=== PATIENT | female | born 1945 | race Hispanic/Latino ===

== ENCOUNTER 2017-06-07 16:52 | Emergency (ER) | payer MEDICARE, OTHER ==
[2017-06-07] MEDS ORDERED: NEURONTIN PO ONE (17:30)
--- NOTE | 2017-06-07 17:31 | Emergency Department Report ---
HPI - General Chief Complaint: Extremity Injury, Upper Time Seen by Provider: 06/07/17 17:29 - HPI HPI: Patient with history of CVA, given the ED with severe left upper extremity pain , no weakness no nausea no vomiting. Patient states symptoms as gone on for the past couple of weeks but worse today. Patient has seen her neurologist for these symptoms, was given lyrica but was unable to afford the medication. ED Past Medical Hx - Past Medical History Previous Medical History?: Yes Hx Hypertension: Yes (pulmonary) Hx CVA: Yes Hx Congestive Heart Failure: Yes Hx Diabetes: Yes Hx Kidney Stones: Yes Additional medical history: A-fib, sleep apnea, CAD, hyperlipidemia - Surgical History Past Surgical History?: Yes Hx Coronary Stent: Yes (x 4) Hx Cholecystectomy: Yes Hx Appendectomy: Yes Additional Surgical History: heart stent x 4; knee and ankle; hernia repair x 2 - Social History Smoking Status: Unknown if ever smoked Substance Use Type: None - Medications Home Medications: Home Medications Medication Instructions Recorded Confirmed Last Taken Type Dabigatran [Pradaxa] 150 mg PO BID 01/31/14 09/15/16 1 Day Ago History 150 Diltiazem Cd [Cardizem CD] 240 mg PO QDAY 01/31/14 09/15/16 1 Day Ago History 240 Valsartan [Diovan] 320 mg PO QDAY 01/31/14 09/15/16 1 Day Ago History 320 Cetirizine HCl [ZyrTEC] 10 mg PO DAILY 11/11/14 09/15/16 1 Day Ago History 10 Tadalafil (Nf) [Adcirca (Nf)] 40 mg PO QDAY 11/11/14 09/15/16 1 Day Ago History 40 Furosemide [Lasix TAB] 40 mg PO QDAY 06/10/16 09/15/16 1 Day Ago History 40 Sitagliptin Phos/Metformin HCl 1 tab PO BID 06/10/16 09/15/16 1 Day Ago History [Janumet 50-1,000 mg] 1 Acetaminophen [Acetaminophen TAB] 650 mg PO Q4H PRN #30 tablet 06/14/16 Unknown Rx Ipratropium/Albuterol Sulfate 1 ampul IH BIDRT #30 ampul.neb 06/14/16 09/15/16 Unknown Rx [DUONEB *Not for PRN Use*] Zolpidem [Ambien] 10 mg PO QHS #30 tablet 06/14/16 09/15/16 Unknown Rx levETIRAcetam [Keppra TAB] 500 mg PO BID #60 tablet 06/14/16 09/15/16 Unknown Rx clonazePAM [KlonoPIN] 0.5 mg PO DAILY 09/15/16 09/15/16 Unknown History Gabapentin [Neurontin] 300 mg PO BID capsule 09/17/16 Unknown Rx Lacosamide [Vimpat] 100 mg PO Q12HR tablet 09/17/16 Unknown Rx Carvedilol [Coreg] 3.125 mg PO BID #60 tablet 09/18/16 Unknown Rx levETIRAcetam [Keppra TAB] 500 mg PO BID #60 tablet 01/15/17 Unknown Rx traMADol [Ultram] 50 mg PO Q6HR PRN #7 tablet 06/08/17 Unknown Rx ED Review of Systems ROS: Stated complaint: LEFT LEG AND ARM PAIN Other details as noted in HPI Comment: All other systems reviewed and negative Neurological: as per HPI Psychiatric: anxiety Physical Exam - Physical Exam Vital Signs: Vital Signs 06/07/17 16:58 Temperature 98.8 F Pulse Rate 85 Respiratory 24 Rate Blood Pressure 205/84 O2 Sat by Pulse 92 Oximetry Physical Exam: General Adult Exam GENERAL APPEARANCE: Well developed, well nourished, alert and cooperative, and appears to be in no acute distress. HEAD: normocephalic. EYES: PERRL, EOMI. Fundi normal, vision is grossly intact. EARS: External auditory canals and tympanic membranes clear, hearing grossly intact. NOSE: No nasal discharge. THROAT: Oral cavity and pharynx normal. No inflammation, swelling, exudate, or lesions. Teeth and gingiva in good general condition. NECK: Neck supple, non-tender without lymphadenopathy, masses or thyromegaly. CARDIAC: Normal S1 and S2. No S3, S4 or murmurs. Rhythm is regular. There is no peripheral edema, cyanosis or pallor. Extremities are warm and well perfused. Capillary refill is less than 2 seconds. No carotid bruits. LUNGS: Clear to auscultation and percussion without rales, rhonchi, wheezing or diminished breath sounds. ABDOMEN: Positive bowel sounds. Soft, nondistended, nontender. No guarding or rebound. No masses. MUSKULOSKELETAL: Adequately aligned spine. ROM intact spine and extremities. No joint erythema or tenderness. Normal muscular development. Normal gait. BACK: Examination of the spine reveals normal gait and posture, no spinal deformity, symmetry of spinal muscles, without tenderness, decreased range of motion or muscular spasm. EXTREMITIES: No significant deformity or joint abnormality. No edema. Peripheral pulses intact. No varicosities. LOWER EXTREMITY: Examination of both feet reveals all toes to be normal in size and symmetry, normal range of motion, normal sensation with distal capillary filling of less than 2 seconds without tenderness, swelling, discoloration, nodules, weakness or deformity; examination of both ankles, knees, legs, and hips reveals normal range of motion, normal sensation without tenderness, swelling, discoloration, crepitus, weakness or deformity. NEUROLOGICAL: CN II-XII intact. Strength and sensation symmetric and intact throughout. Reflexes 2+ throughout. Cerebellar testing normal. SKIN: Skin normal color, texture and turgor with no lesions or eruptions. PSYCHIATRIC: The mental examination revealed the patient was oriented to person , place, and time. The patient was able to demonstrate good judgement and reason , without hallucinations, abnormal affect or abnormal behaviors during the examination. Patient is not suicidal. ED Course Vital Signs 06/07/17 16:58 Temperature 98.8 F Pulse Rate 85 Respiratory 24 Rate Blood Pressure 205/84 O2 Sat by Pulse 92 Oximetry ED Medical Decision Making - Lab Data Result diagrams: 06/07/17 20:27 06/07/17 20:27 Critical care attestation.: If time is entered above; I have spent that time in minutes in the direct care of this critically ill patient, excluding procedure time. ED Disposition Clinical Impression: Neuropathy Disposition: DC-01 TO HOME OR SELFCARE Is pt being admited?: No Does the pt Need Aspirin: No Condition: Stable Prescriptions: traMADol [Ultram] 50 mg PO Q6HR PRN #7 tablet PRN Reason: Pain Referrals: PRIMARY CARE, [Primary Care Provider] - 3-5 Days
--- NOTE | 2017-06-07 18:31 | Cat Scan Report ---
FINAL REPORT PROCEDURE: CT HEAD/BRAIN WO CON TECHNIQUE: Computerized tomography of the head was performed without contrast material. HISTORY: left arm weakness COMPARISON: Head CT dated January 15, 2017 FINDINGS: Calcifications are seen in the distal ICAs, vertebral arteries, and basilar artery. Mild changes of chronic sinusitis are seen in the paranasal sinuses. Mastoid air cells appear clear. No calvarial fracture is seen. Cerebral ventricles are normal in size. Encephalomalacia from prior CVA is seen in the posterior right frontal lobe. Associated gliosis is seen, similar prior study. This is very near the motor cortex and could account for patient's symptoms. No acute intracranial hemorrhage or mass effect is seen. IMPRESSION: Old right frontal lobe CVA appears similar to prior study. An acute abnormality is not seen.
[2017-06-07] MEDS ORDERED: TORADOL IV ONE (20:20)
[2017-06-07 20:48] LABS: Basophils % (Auto) 0.7 % (0.0-1.8); Eosinophils % (Auto) 1.3 % (0.0-4.3); Hematocrit 32.2 % (30.3-42.9); Hemoglobin 10.3 gm/dl (10.1-14.3); Mean Corpuscular HGB Conc 32 % (30-34); Mean Corpuscular Volume 81 fl (79-97); Platelet Count 137 K/mm3 (140-440); Red Blood Count 3.99 M/mm3 (3.65-5.03); White Blood Count 5.5 K/mm3 (4.5-11.0)
[2017-06-07 20:50] LABS: Mean Corpuscular Hemoglobin 26 pg (28-32)
[2017-06-07 21:12] LABS: Alanine Aminotransferase 8 units/L (7-56); Albumin 3.9 g/dL (3.9-5); Albumin/Globulin Ratio 0.9 %; Alkaline Phosphatase 54 units/L (35-129); Anion Gap 23 mmol/L; BUN/Creatinine Ratio 23.33; Blood Urea Nitrogen 14 mg/dL (7-17); Calcium 9.5 mg/dL (8.4-10.2); Carbon Dioxide 18 mmol/L (22-30); Chloride 102.7 mmol/L (98-107); Glucose 110 mg/dL (65-100); Potassium 4.2 mmol/L (3.6-5.0); Sodium 139 mmol/L (137-145); Total Protein 8.2 g/dL (6.3-8.2)
[2017-06-08 03:33] VITALS: BP 126/69
== END 2017-06-07 23:00 | disposition home or self-care (01) ==
LOC: ED 16:52
DX: M79.642 Pain in left hand (principal); E11.40 Type 2 diabetes mellitus with diabetic neuropathy, unspecified; I27.2 Other secondary pulmonary hypertension; Z86.73 Personal history of transient ischemic attack (TIA), and cerebral infarction without residual deficits; G47.30 Sleep apnea, unspecified; E78.5 Hyperlipidemia, unspecified; Z95.818 Presence of other cardiac implants and grafts; Z88.0 Allergy status to penicillin; Z88.5 Allergy status to narcotic agent
CPT/HCPCS: 36415; 70450; 80053; 85025; 93005; 93010; 96374; 99284; J1885

== ENCOUNTER 2018-01-13 16:02 | Inpatient (IN) | payer OTHER, MEDICARE ==
--- NOTE | 2018-01-13 17:41 | Emergency Department Report ---
HPI - General Chief Complaint: Dyspnea/Respdistress Time Seen by Provider: 01/13/18 17:33 - HPI HPI: 72-year-old female presents to ED with chest pain, shortness of breath , history of atrial fibrillation. No fever, no chills. Pain is dull, radiation to both shoulders. Patient states she is compliant with her medications. She lives at home. He was admitted in the hospital in [place] less week for fluid overload. She does have a history of CHF. ED Past Medical Hx - Past Medical History Hx Hypertension: Yes (pulmonary) Hx CVA: Yes Hx Congestive Heart Failure: Yes Hx Diabetes: Yes Hx Kidney Stones: Yes Additional medical history: A-fib, sleep apnea, CAD, hyperlipidemia - Surgical History Hx Coronary Stent: Yes (x 4) Hx Cholecystectomy: Yes Hx Appendectomy: Yes Additional Surgical History: heart stent x 4; knee and ankle; hernia repair x 2 - Social History Smoking Status: Never Smoker Substance Use Type: None - Medications Home Medications: Home Medications Medication Instructions Recorded Confirmed Last Taken Type Dabigatran [Pradaxa] 150 mg PO BID 01/31/14 09/15/16 1 Day Ago History ~06/09/16 150 Diltiazem Cd [Cardizem CD] 240 mg PO QDAY 01/31/14 09/15/16 1 Day Ago History ~06/09/16 240 Valsartan [Diovan] 320 mg PO QDAY 01/31/14 09/15/16 1 Day Ago History ~06/09/16 320 Cetirizine HCl [ZyrTEC] 10 mg PO DAILY 11/11/14 09/15/16 1 Day Ago History ~06/09/16 10 Tadalafil (Nf) [Adcirca (Nf)] 40 mg PO QDAY 11/11/14 09/15/16 1 Day Ago History ~06/09/16 40 Furosemide [Lasix TAB] 40 mg PO QDAY 06/10/16 09/15/16 1 Day Ago History ~06/09/16 40 Sitagliptin Phos/Metformin HCl 1 tab PO BID 06/10/16 09/15/16 1 Day Ago History [Janumet 50-1,000 mg] ~06/09/16 1 Acetaminophen [Acetaminophen TAB] 650 mg PO Q4H PRN #30 tablet 06/14/16 Unknown Rx Ipratropium/Albuterol Sulfate 1 ampul IH BIDRT #30 ampul.neb 06/14/16 09/15/16 Unknown Rx [DUONEB *Not for PRN Use*] Zolpidem [Ambien] 10 mg PO QHS #30 tablet 06/14/16 09/15/16 Unknown Rx levETIRAcetam [Keppra TAB] 500 mg PO BID #60 tablet 06/14/16 09/15/16 Unknown Rx clonazePAM [KlonoPIN] 0.5 mg PO DAILY 09/15/16 09/15/16 Unknown History Gabapentin [Neurontin] 300 mg PO BID capsule 09/17/16 Unknown Rx Lacosamide [Vimpat] 100 mg PO Q12HR tablet 09/17/16 Unknown Rx Carvedilol [Coreg] 3.125 mg PO BID #60 tablet 09/18/16 Unknown Rx levETIRAcetam [Keppra TAB] 500 mg PO BID #60 tablet 01/15/17 Unknown Rx traMADol [Ultram] 50 mg PO Q6HR PRN #7 tablet 06/08/17 Unknown Rx ED Review of Systems ROS: Stated complaint: SHORTNESS OF BREATH Other details as noted in HPI Physical Exam - Physical Exam Vital Signs: Vital Signs 01/13/18 01/13/18 01/13/18 16:38 16:50 17:24 Temperature 98.0 F 98.0 F Pulse Rate 66 56 L 68 Respiratory 24 24 Rate Blood Pressure 149/54 Blood Pressure 150/51 [Right] O2 Sat by Pulse 95 95 Oximetry Physical Exam: Gen. alert and oriented 3 in no distress Head atraumatic normocephalic Eyes PERR LA EOMI Neck vascular, prominent JVD bilaterally Chest irregularly irregular lungs clear bilaterally, Extremity: One plus edema bilaterally Abdomen soft nondistended Back no point tenderness Neuro no focal deficit. Psych normal mood. ED Course Vital Signs 01/13/18 01/13/18 01/13/18 16:38 16:50 17:24 Temperature 98.0 F 98.0 F Pulse Rate 66 56 L 68 Respiratory 24 24 Rate Blood Pressure 149/54 Blood Pressure 150/51 [Right] O2 Sat by Pulse 95 95 Oximetry - Reevaluation(s) Reevaluation #1: 01/14/18 01:04 Patient requiring full liters of oxygen to keep saturation greater than 93%. States she is unable to lay flat due to her symptoms we will admit. ED Medical Decision Making - Lab Data Result diagrams: 01/13/18 18:04 01/13/18 18:04 - Medical Decision Making Patient requiring full liters of oxygen to keep saturation greater than 93%. States she is unable to lay flat due to her symptoms we will admit. - Differential Diagnosis pneumonia, [place], acute CHF exacerbation, atrial fibrillation with RVR Critical care attestation.: If time is entered above; I have spent that time in minutes in the direct care of this critically ill patient, excluding procedure time. ED Disposition Clinical Impression: Chronic atrial fibrillation, Pulmonary hypertension CHF (congestive heart failure) Qualifiers: Heart failure type: systolic Heart failure chronicity: acute on chronic Qualified Code(s): I50.23 - Acute on chronic systolic (congestive) heart failure Disposition: OP ADMIT IP TO THIS HOSP Is pt being admited?: Yes Does the pt Need Aspirin: Yes Condition: Stable Referrals: PRIMARY CARE, [Primary Care Provider] - 3-5 Days
[2018-01-13 18:21] LABS: Basophils # (Auto) 0.1 K/mm3 (0.0-0.1); Basophils % (Auto) 0.8 % (0.0-1.8); Eosinophils # (Auto) 0.1 K/mm3 (0.0-0.4); Eosinophils % (Auto) 0.9 % (0.0-4.3); Hematocrit 31.3 % (30.3-42.9); Hemoglobin 9.9 gm/dl (10.1-14.3); Lymphocytes # (Auto) 1.3 K/mm3 (1.2-5.4); Lymphocytes % (Auto) 19.3 % (13.4-35.0); Mean Corpuscular HGB Conc 32 % (30-34); Mean Corpuscular Volume 80 fl (79-97); Monocytes # (Auto) 0.5 K/mm3 (0.0-0.8); Monocytes % (Auto) 6.9 % (0.0-7.3); Platelet Count 186 K/mm3 (140-440); Red Blood Count 3.91 M/mm3 (3.65-5.03); Red Cell Distribution Width 15.4 % (13.2-15.2)
[2018-01-13 18:25] LABS: Mean Corpuscular Hemoglobin 25 pg (28-32)
[2018-01-13 18:28] LABS: INR 1.38 (0.87-1.13)
[2018-01-13 18:30] LABS: Partial Thromboplastin Time 57.1 Sec. (24.2-36.6)
[2018-01-13 18:46] LABS: Calcium 9.1 mg/dL (8.4-10.2)
--- NOTE | 2018-01-13 19:12 | XRay Report ---
FINAL REPORT PROCEDURE: PA and lateral chest x-ray TECHNIQUE: PA and lateral chest radiographs were obtained. CPT 21007 HISTORY: Shortness of breath COMPARISON: Prior chest x-ray 09/14/2016 FINDINGS: Cardiomegaly is unchanged. Upper lobe vasculature mildly distended. The margins are sharp. No definite pulmonary edema is seen. No acute infiltrates masses or effusions are identified. No acute bony abnormalities are identified. Overall the lungs appear mildly hyperinflated. IMPRESSION: Cardiomegaly with mild pulmonary venous hypertension changes. No pulmonary edema is seen. Mild hyperinflation suggests underlying COPD..
[2018-01-13] MEDS ORDERED: LASIX IV ONE (23:28)
[2018-01-14] MEDS ORDERED: ASPIRIN PO ONE (01:06)
[2018-01-14] MEDS ORDERED: TYLENOL PO PRN (02:02)
[2018-01-14] MEDS ORDERED: D50W (25GM) Syringe IV PRN (02:19)
--- NOTE | 2018-01-14 02:19 | History and Physical Report ---
History of Present Illness Date of examination: 01/14/18 Date of admission: 01/14/18 00:29 Chief complaint: Sent from cardiology clinic for shortness of breath. History of present illness: 72-year-old female with past medical history significant for diastolic CHF, pulmonary hypertension, sleep apnea, diabetes mellitus, hypertension, CAD status post post 4 stents, A. fib was sent from Dr. Callejas's clinic to the emergency department further complaints of exertional shortness of breath for the last 2 weeks. Shortness of breath is progressively getting worse. Patient had echo and stress test done recently at cardiology clinic and went today to discuss the results but patient with respiratory distress and sent to the emergency department for further management. Patient needs 4 L of oxygen. Patient was admitted to [facility] on 12/26/17 and was treated for CHF exacerbation and discharged. Patient admitted for occasional cough but denied leg swelling. Patient had severe pulmonary hypertension and is on tadalafil. Patient has MARY ELLEN and on CPAP. REVIEW OF SYSTEMS: GENERAL: no weight change, no fatigue, no fever HEAD: no head ache EYES: no blurry vision, no acute visual loss EARS: no hearing loss, no discharge, no earache NOSE: no stuffiness, no sneezing, no discharge MOUTH, THROAT AND NECK: no bleeding gums, no sore throat, no swollen neck CARDIAC: As stated in the HPI. RESPIRATORY: As stated in the HPI. GI: no decreased appetite, no nausea, no vomiting, no dysphagia, no diarrhea, no constipation, no abdominal pain URINARY: no change in frequency, no urgency, no polyuria, no hematuria, no incontinence MUSCULOSKELETAL: no muscle weakness, no pain, no joint stiffness NEUROLOGIC: no loss of sensation/numbness, no tingling, no tremors, no weakness/ paralysis HEMATOLOGIC: no anemia, no easy bruising SKIN: no rashes ENDOCRINE: no heat/cold intolerance, no polyuria, no polydipsia, no thyroid problems PSYCHIATRIC: no anxiety, no depression, no suicidal ideations Past History Past Medical History: atrial fib, CAD, diabetes, heart failure, hypertension Past Surgical History: appendectomy, cholecystectomy, hysterectomy Social history: full code. denies: smoking, alcohol abuse, prescription drug abuse, IV drug use Family history: CAD Medications and Allergies Allergies Allergy/AdvReac Type Severity Reaction Status Date / Time Penicillins Allergy Severe Swelling Verified 11/11/14 17:37 codeine AdvReac Nausea Verified 11/11/14 17:37 hydrocodone AdvReac Nausea Verified 11/11/14 17:37 Home Medications Medication Instructions Recorded Confirmed Last Taken Type Dabigatran [Pradaxa] 150 mg PO BID 01/31/14 09/15/16 1 Day Ago History ~06/09/16 150 Diltiazem Cd [Cardizem CD] 240 mg PO QDAY 01/31/14 09/15/16 1 Day Ago History ~06/09/16 240 Valsartan [Diovan] 320 mg PO QDAY 01/31/14 09/15/16 1 Day Ago History ~06/09/16 320 Cetirizine HCl [ZyrTEC] 10 mg PO DAILY 11/11/14 09/15/16 1 Day Ago History ~06/09/16 10 Tadalafil (Nf) [Adcirca (Nf)] 40 mg PO QDAY 11/11/14 09/15/16 1 Day Ago History ~06/09/16 40 Furosemide [Lasix TAB] 40 mg PO QDAY 06/10/16 09/15/16 1 Day Ago History ~06/09/16 40 Sitagliptin Phos/Metformin HCl 1 tab PO BID 06/10/16 09/15/16 1 Day Ago History [Janumet 50-1,000 mg] ~06/09/16 1 Acetaminophen [Acetaminophen TAB] 650 mg PO Q4H PRN #30 tablet 06/14/16 Unknown Rx Ipratropium/Albuterol Sulfate 1 ampul IH BIDRT #30 ampul.neb 06/14/16 09/15/16 Unknown Rx [DUONEB *Not for PRN Use*] Zolpidem [Ambien] 10 mg PO QHS #30 tablet 06/14/16 09/15/16 Unknown Rx levETIRAcetam [Keppra TAB] 500 mg PO BID #60 tablet 06/14/16 09/15/16 Unknown Rx clonazePAM [KlonoPIN] 0.5 mg PO DAILY 09/15/16 09/15/16 Unknown History Gabapentin [Neurontin] 300 mg PO BID capsule 09/17/16 Unknown Rx Lacosamide [Vimpat] 100 mg PO Q12HR tablet 09/17/16 Unknown Rx Carvedilol [Coreg] 3.125 mg PO BID #60 tablet 09/18/16 Unknown Rx levETIRAcetam [Keppra TAB] 500 mg PO BID #60 tablet 01/15/17 Unknown Rx traMADol [Ultram] 50 mg PO Q6HR PRN #7 tablet 06/08/17 Unknown Rx Active Meds: Active Medications Acetaminophen (Tylenol) 650 mg PO Q4H PRN PRN Reason: For Pain/Fever/Headache Albuterol/Ipratropium (Duoneb *Not For Prn Use*) 1 ampul IH BIDRT ANGIE Aspirin (Baby Aspirin) 81 mg PO QDAY ANGIE Carvedilol (Coreg) 3.125 mg PO BID ANGIE Clonazepam (Klonopin) 0.5 mg PO DAILY ANGIE Dabigatran (Pradaxa) 150 mg PO BID ANGIE; Protocol Diltiazem HCl (Cardizem Cd) 240 mg PO QDAY [facility] Furosemide (Lasix) 40 mg IV BID@0600,1800 [facility] Gabapentin (Neurontin) 300 mg PO BID [facility] Miscellaneous Medication (Cetirizine Hcl [Zyrtec]) 10 mg PO DAILY [facility] Miscellaneous Medication (Tadalafil (Nf)) 40 mg PO QDAY ANGIE Valsartan (Diovan) 320 mg PO QDAY ANGIE Zolpidem Tartrate (Ambien) 10 mg PO QHS [facility] Exam - Physical Exam Narrative exam: In cardiopulmonary distress. On 4l of [place] oxygen. The patient is obese. Vital signs as documented. Head exam is unremarkable. No scleral icterus . Neck is without jugular venous distension, thyromegaly, or carotid bruits. Lungs are clear to auscultation. Cardiac exam reveals irregular rate and Rhythm. Abdominal exam reveals normal bowel sounds, no masses, no organomegaly and no aortic enlargement. Extremities are nonedematous and both femoral and pedal pulses are normal. CROSSING WATCHMAN: Alert and oriented 3. No focal weakness. - Constitutional Vitals: Temp Pulse Resp BP Pulse Ox 98.0 F 61 20 154/63 94 01/13/18 17:24 01/13/18 21:21 01/13/18 21:21 01/14/18 00:27 01/14/18 00:27 Results - Labs CBC & Chem 7: 01/13/18 18:04 01/13/18 18:04 Labs: Laboratory Last Values WBC 6.8 K/mm3 (4.5-11.0) 01/13/18 18:04 RBC 3.91 M/mm3 (3.65-5.03) 01/13/18 18:04 Hgb 9.9 gm/dl (10.1-14.3) L 01/13/18 18:04 Hct 31.3 % (30.3-42.9) 01/13/18 18:04 MCV 80 fl (79-97) 01/13/18 18:04 MCH 25 pg (28-32) L 01/13/18 18:04 MCHC 32 % (30-34) 01/13/18 18:04 RDW 15.4 % (13.2-15.2) H 01/13/18 18:04 Plt Count 186 K/mm3 (140-440) 01/13/18 18:04 Lymph % (Auto) 19.3 % (13.4-35.0) 01/13/18 18:04 [place] % (Auto) 6.9 % (0.0-7.3) 01/13/18 18:04 Eos % (Auto) 0.9 % (0.0-4.3) 01/13/18 18:04 Baso % (Auto) 0.8 % (0.0-1.8) 01/13/18 18:04 Lymph # 1.3 K/mm3 (1.2-5.4) 01/13/18 18:04 [place] # 0.5 K/mm3 (0.0-0.8) 01/13/18 18:04 Eos # 0.1 K/mm3 (0.0-0.4) 01/13/18 18:04 Baso # 0.1 K/mm3 (0.0-0.1) 01/13/18 18:04 Seg Neutrophils % 72.1 % (40.0-70.0) H 01/13/18 18:04 Seg Neutrophils # 4.9 K/mm3 (1.8-7.7) 01/13/18 18:04 PT 17.8 Sec. (12.2-14.9) H 01/13/18 18:04 INR 1.38 (0.87-1.13) H 01/13/18 18:04 APTT 57.1 Sec. (24.2-36.6) H 01/13/18 18:04 Sodium 139 mmol/L (137-145) 01/13/18 18:04 Potassium 3.9 mmol/L (3.6-5.0) 01/13/18 18:04 Chloride 100.4 mmol/L (98-107) 01/13/18 18:04 Carbon Dioxide 21 mmol/L (22-30) L 01/13/18 18:04 Anion Gap 22 mmol/L 01/13/18 18:04 BUN 16 mg/dL (7-17) 01/13/18 18:04 Creatinine 1.0 mg/dL (0.7-1.2) 01/13/18 18:04 Estimated GFR 54 ml/min 01/13/18 18:04 BUN/Creatinine Ratio 16 % 01/13/18 18:04 Glucose 112 mg/dL (65-100) H 01/13/18 18:04 Calcium 9.1 mg/dL (8.4-10.2) 01/13/18 18:04 Total Creatine Kinase 43 units/L (30-135) 01/13/18 18:04 Troponin T < 0.010 ng/mL (0.00-0.029) 01/13/18 18:04 NT-Pro-B Natriuret Pep 1537 pg/mL (0-900) H 01/13/18 23:41 - Imaging and Cardiology EKG: image reviewed Chest x-ray: image reviewed Assessment and Plan Assessment and plan: Acute on chronic diastolic CHF exacerbation Pulmonary hypertension A. fib, rate controlled Diabetes mellitus Hypertension CAD - Patient started on IV Lasix, resume appropriate home medications, cardiology consulted - Oxygen support DVT prophylaxis - patient is on pradaxa Disposition - Admit to telemetry floor. Advance Directives: Yes VTE prophylaxis?: Chemical Plan of care discussed with patient/family: Yes
[2018-01-14] MEDS: LASIX IV SCH ×2 (05:49→17:24)
[2018-01-14] MEDS: DUONEB *Not for PRN Use IH SCH ×2 (07:30→20:36)
[2018-01-14] MEDS: HumaLOG SUB-Q SCH ×4 (07:49→22:32)
[2018-01-14] MEDS: CARDIZEM CD PO SCH (09:57)
[2018-01-14] MEDS: CLARITIN PO SCH (09:57)
[2018-01-14] MEDS: BABY ASPIRIN PO SCH (09:57)
[2018-01-14] MEDS: PRADAXA PO SCH ×2 (09:57→22:31)
[2018-01-14] MEDS: COREG PO SCH (09:57)
[2018-01-14] MEDS: DIOVAN PO SCH (09:57)
[2018-01-14] MEDS: NEURONTIN PO SCH ×2 (09:57→22:31)
[2018-01-14] MEDS ORDERED: NON-FORMULARY (Tadalafil (Nf) 40 MG) PO SCH (10:00)
[2018-01-14] MEDS ORDERED: NON-FORMULARY (Cetirizine Hcl [Zyrtec] 10 MG) PO SCH (10:00)
--- NOTE | 2018-01-14 11:13 | Progress Note ---
Assessment and Plan Assessment and plan: Acute on chronic diastolic CHF exacerbation. BNP is elevated at 1537 on admission. Continue IV Lasix, resume appropriate home medications, cardiology consultion pending. Echocardiogram on 04/2016 revealed mild concentric LVH with EF of 50-55%. Repeat echocardiogram. Pulmonary hypertension. Continue O2 for supportive care. Echo from 2016 revealed RVSP of 71 mmHg A. fib, rate controlled. Continue current medications. Continue pradaxa Diabetes mellitus. Continue Accu-Cheks and sliding scale insulin. Hypertension. Continue antihypertensive medications. CAD. Per cardiology. DVT prophylaxis. Patient is on pradaxa History Interval history: No new issues overnight. Hospitalist Physical - Constitutional Vitals: Temp Pulse Resp BP Pulse Ox 97.4 F L 72 20 171/76 96 01/14/18 08:16 01/14/18 08:16 01/14/18 10:00 01/14/18 08:16 01/14/18 10:00 General appearance: Present: no acute distress, well-nourished - EENT Eyes: Present: PERRL, EOM intact ENT: hearing intact, clear oral mucosa, dentition normal - Neck Neck: Present: supple, normal ROM - Respiratory Respiratory effort: normal Respiratory: bilateral: CTA - Cardiovascular Rhythm: regular Heart Sounds: Present: S1 & S2. Absent: gallop, rub - Extremities Extremities: no ischemia, No edema, Full ROM - Abdominal General gastrointestinal: soft, non-tender, non-distended, normal bowel sounds - Integumentary Integumentary: Present: clear, warm, dry - Neurologic Neurologic: CNII-XII intact, moves all extremities Results - Labs CBC & Chem 7: 01/13/18 18:04 01/13/18 18:04 Labs: Laboratory Last Values WBC 6.8 K/mm3 (4.5-11.0) 01/13/18 18:04 RBC 3.91 M/mm3 (3.65-5.03) 01/13/18 18:04 Hgb 9.9 gm/dl (10.1-14.3) L 01/13/18 18:04 Hct 31.3 % (30.3-42.9) 01/13/18 18:04 MCV 80 fl (79-97) 01/13/18 18:04 MCH 25 pg (28-32) L 01/13/18 18:04 MCHC 32 % (30-34) 01/13/18 18:04 RDW 15.4 % (13.2-15.2) H 01/13/18 18:04 Plt Count 186 K/mm3 (140-440) 01/13/18 18:04 Lymph % (Auto) 19.3 % (13.4-35.0) 01/13/18 18:04 [place] % (Auto) 6.9 % (0.0-7.3) 01/13/18 18:04 Eos % (Auto) 0.9 % (0.0-4.3) 01/13/18 18:04 Baso % (Auto) 0.8 % (0.0-1.8) 01/13/18 18:04 Lymph # 1.3 K/mm3 (1.2-5.4) 01/13/18 18:04 [place] # 0.5 K/mm3 (0.0-0.8) 01/13/18 18:04 Eos # 0.1 K/mm3 (0.0-0.4) 01/13/18 18:04 Baso # 0.1 K/mm3 (0.0-0.1) 01/13/18 18:04 Seg Neutrophils % 72.1 % (40.0-70.0) H 01/13/18 18:04 Seg Neutrophils # 4.9 K/mm3 (1.8-7.7) 01/13/18 18:04 PT 17.8 Sec. (12.2-14.9) H 01/13/18 18:04 INR 1.38 (0.87-1.13) H 01/13/18 18:04 APTT 57.1 Sec. (24.2-36.6) H 01/13/18 18:04 Sodium 139 mmol/L (137-145) 01/13/18 18:04 Potassium 3.9 mmol/L (3.6-5.0) 01/13/18 18:04 Chloride 100.4 mmol/L (98-107) 01/13/18 18:04 Carbon Dioxide 21 mmol/L (22-30) L 01/13/18 18:04 Anion Gap 22 mmol/L 01/13/18 18:04 BUN 16 mg/dL (7-17) 01/13/18 18:04 Creatinine 1.0 mg/dL (0.7-1.2) 01/13/18 18:04 Estimated GFR 54 ml/min 01/13/18 18:04 BUN/Creatinine Ratio 16 % 01/13/18 18:04 Glucose 112 mg/dL (65-100) H 01/13/18 18:04 POC Glucose 104 (70-105) 01/14/18 06:58 Calcium 9.1 mg/dL (8.4-10.2) 01/13/18 18:04 Total Creatine Kinase 43 units/L (30-135) 01/13/18 18:04 Troponin T < 0.010 ng/mL (0.00-0.029) 01/13/18 18:04 NT-Pro-B Natriuret Pep 1537 pg/mL (0-900) H 01/13/18 23:41
[2018-01-14] MEDS ORDERED: HumaLOG SUB-Q ONE (22:00)
[2018-01-14] MEDS: AMBIEN PO SCH (22:35)
[2018-01-15] MEDS: COREG PO SCH ×3 (00:08→21:57)
[2018-01-15] MEDS: LASIX IV SCH ×2 (06:05→17:03)
[2018-01-15 06:18] LABS: Basophils % (Auto) 0.7 % (0.0-1.8); Eosinophils # (Auto) 0.2 K/mm3 (0.0-0.4); Eosinophils % (Auto) 2.8 % (0.0-4.3); Hematocrit 32.2 % (30.3-42.9); Hemoglobin 10.6 gm/dl (10.1-14.3); Lymphocytes # (Auto) 1.5 K/mm3 (1.2-5.4); Lymphocytes % (Auto) 22.5 % (13.4-35.0); Mean Corpuscular HGB Conc 33 % (30-34); Mean Corpuscular Volume 79 fl (79-97); Monocytes # (Auto) 0.5 K/mm3 (0.0-0.8); Monocytes % (Auto) 8.1 % (0.0-7.3); Platelet Count 189 K/mm3 (140-440); Red Cell Distribution Width 15.5 % (13.2-15.2)
[2018-01-15 06:19] LABS: Mean Corpuscular Hemoglobin 26 pg (28-32)
[2018-01-15 06:38] LABS: Calcium 8.9 mg/dL (8.4-10.2)
[2018-01-15] MEDS: HumaLOG SUB-Q SCH ×4 (07:23→21:58)
[2018-01-15] MEDS: DUONEB *Not for PRN Use IH SCH ×2 (07:36→21:18)
[2018-01-15] MEDS: NEURONTIN PO SCH ×2 (09:59→21:57)
[2018-01-15] MEDS: DIOVAN PO SCH (09:59)
[2018-01-15] MEDS: BABY ASPIRIN PO SCH (09:59)
[2018-01-15] MEDS: PRADAXA PO SCH ×3 (09:59→22:01)
[2018-01-15] MEDS: CLARITIN PO SCH (10:00)
[2018-01-15] MEDS: CARDIZEM CD PO SCH (10:00)
--- NOTE | 2018-01-15 11:33 | Progress Note ---
Assessment and Plan SOB with severe pulmonary hypertension,RVSP of 118 mm Hg on echo done 12/2017, known coronary artery disease,s/p PCI.Normal LVEF,moderate MR. On Tadalafil,but her pulmonary arterial hypertension is not responding well.Last RHC was performed many years ago. Considering patient is severely symptomatic,not able to carry out her usual activities,would reevaluate her with right and left heart catheterization,with intention of treating her pulmonary hypertension more aggressively.Discussed with j luisnet about cardiac cath and further rx at tertiary care center. patient says she has issues with bleeding in past,will hold xarelto today and plan for cath on Tuesday.Patient is agreeable. - Patient Problems (1) Chronic atrial fibrillation Current Visit: Yes Status: Chronic (2) Pulmonary hypertension Current Visit: Yes Status: Chronic (3) Dyspnea or other respiratory complaints Current Visit: No Status: Acute Subjective Date of service: 01/15/18 Interval history: Patient with severe pulmonary hypertention and SOB with minimal exertion. Objective Vital Signs Temp Pulse Pulse Pulse Resp Resp BP 01/15/18 10:00 70 70 01/15/18 08:02 98.1 F 68 18 122/70 01/15/18 07:46 64 20 01/15/18 07:36 72 20 01/15/18 05:23 98.1 F 66 22 132/67 01/15/18 00:08 60 131/73 01/15/18 00:01 62 20 131/73 01/14/18 22:00 20 01/14/18 21:12 53 L 16 01/14/18 20:46 98.3 F 54 L 20 104/48 01/14/18 20:45 62 16 01/14/18 20:37 56 L 16 01/14/18 19:07 51 L 01/14/18 18:39 97.7 F 63 20 01/14/18 12:16 97.8 F 61 20 165/70 BP Pulse Ox 01/15/18 10:00 01/15/18 08:02 90 01/15/18 07:46 01/15/18 07:36 01/15/18 05:23 91 01/15/18 00:08 01/15/18 00:01 96 01/14/18 22:00 96 01/14/18 21:12 96 01/14/18 20:46 96 01/14/18 20:45 01/14/18 20:37 01/14/18 19:07 01/14/18 18:39 107/52 94 01/14/18 12:16 96 - Physical Examination HEENT: Positive: PERRL Neck: Positive: neck supple Cardiac: Positive: Reg Rate and Rhythm, S4 Lungs: Positive: clear to auscultation Neuro: Positive: Grossly Intact Abdomen: Positive: Unremarkable Skin: Negative: Rash Extremities: Absent: edema - Labs and Meds CBC 01/15/18 Range/Units 05:21 WBC 6.5 (4.5-11.0) K/mm3 RBC 4.10 (3.65-5.03) M/mm3 Hgb 10.6 (10.1-14.3) gm/dl Hct 32.2 (30.3-42.9) % Plt Count 189 (140-440) K/mm3 Lymph # 1.5 (1.2-5.4) K/mm3 [place] # 0.5 (0.0-0.8) K/mm3 Eos # 0.2 (0.0-0.4) K/mm3 Baso # 0.0 (0.0-0.1) K/mm3 Comprehensive Metabolic Panel 01/15/18 Range/Units 05:21 Sodium 138 (137-145) mmol/L Potassium 3.7 (3.6-5.0) mmol/L Chloride 96.1 L (98-107) mmol/L Carbon Dioxide 25 (22-30) mmol/L BUN 26 H (7-17) mg/dL Creatinine 1.2 (0.7-1.2) mg/dL Glucose 95 (65-100) mg/dL Calcium 8.9 (8.4-10.2) mg/dL - Imaging and Cardiology EKG: image reviewed
--- NOTE | 2018-01-15 11:43 | Progress Note ---
Assessment and Plan Assessment and plan: Acute on chronic diastolic CHF exacerbation. BNP is elevated at 1537 on admission. Continue IV Lasix, resume appropriate home medications, cardiology consultion pending. Echocardiogram on 04/2016 revealed mild concentric LVH with EF of 50-55%. Repeat echocardiogram. Pulmonary hypertension. Continue O2 for supportive care. Echo from 2015 revealed RVSP of 71 mmHg but now worse RVSP of 118 mm Hg on echo done 12/2017. On Tadalafil but her pulmonary arterial hypertension is not responding well. Cardiology Discussed with patient about cardiac cath and further rx at tertiary care center. Patient says she has issues with bleeding in past. Therefore, we will hold xarelto today and plan for cath on Tuesday. fib, rate controlled. Continue current medications. Continue pradaxa Diabetes mellitus. Continue Accu-Cheks and sliding scale insulin. Hypertension. Continue antihypertensive medications. CAD. Per cardiology. DVT prophylaxis. Patient is on pradaxa History Interval history: No new issues overnight. Hospitalist Physical - Constitutional Vitals: Temp Pulse Resp BP Pulse Ox 98.1 F 72 20 122/70 90 01/15/18 08:02 01/15/18 10:00 01/15/18 10:00 01/15/18 08:02 01/15/18 08:02 General appearance: Present: no acute distress, well-nourished - EENT Eyes: Present: PERRL, EOM intact ENT: hearing intact, clear oral mucosa, dentition normal - Neck Neck: Present: supple, normal ROM - Respiratory Respiratory effort: normal Respiratory: bilateral: CTA - Cardiovascular Rhythm: regular Heart Sounds: Present: S1 & S2. Absent: gallop, rub - Extremities Extremities: no ischemia, No edema, Full ROM - Abdominal General gastrointestinal: soft, non-tender, non-distended, normal bowel sounds - Integumentary Integumentary: Present: clear, warm, dry - Neurologic Neurologic: CNII-XII intact, moves all extremities Results - Labs CBC & Chem 7: 01/15/18 05:21 01/15/18 05:21 Labs: Laboratory Last Values WBC 6.5 K/mm3 (4.5-11.0) 01/15/18 05:21 RBC 4.10 M/mm3 (3.65-5.03) 01/15/18 05:21 Hgb 10.6 gm/dl (10.1-14.3) 01/15/18 05:21 Hct 32.2 % (30.3-42.9) 01/15/18 05:21 MCV 79 fl (79-97) 01/15/18 05:21 MCH 26 pg (28-32) L 01/15/18 05:21 MCHC 33 % (30-34) 01/15/18 05:21 RDW 15.5 % (13.2-15.2) H 01/15/18 05:21 Plt Count 189 K/mm3 (140-440) 01/15/18 05:21 Lymph % (Auto) 22.5 % (13.4-35.0) 01/15/18 05:21 [place] % (Auto) 8.1 % (0.0-7.3) H 01/15/18 05:21 Eos % (Auto) 2.8 % (0.0-4.3) 01/15/18 05:21 Baso % (Auto) 0.7 % (0.0-1.8) 01/15/18 05:21 Lymph # 1.5 K/mm3 (1.2-5.4) 01/15/18 05:21 [place] # 0.5 K/mm3 (0.0-0.8) 01/15/18 05:21 Eos # 0.2 K/mm3 (0.0-0.4) 01/15/18 05:21 Baso # 0.0 K/mm3 (0.0-0.1) 01/15/18 05:21 Seg Neutrophils % 65.9 % (40.0-70.0) 01/15/18 05:21 Seg Neutrophils # 4.3 K/mm3 (1.8-7.7) 01/15/18 05:21 PT 17.8 Sec. (12.2-14.9) H 01/13/18 18:04 INR 1.38 (0.87-1.13) H 01/13/18 18:04 APTT 57.1 Sec. (24.2-36.6) H 01/13/18 18:04 Sodium 138 mmol/L (137-145) 01/15/18 05:21 Potassium 3.7 mmol/L (3.6-5.0) 01/15/18 05:21 Chloride 96.1 mmol/L (98-107) L 01/15/18 05:21 Carbon Dioxide 25 mmol/L (22-30) 01/15/18 05:21 Anion Gap 21 mmol/L 01/15/18 05:21 BUN 26 mg/dL (7-17) H 01/15/18 05:21 Creatinine 1.2 mg/dL (0.7-1.2) 01/15/18 05:21 Estimated GFR 44 ml/min 01/15/18 05:21 BUN/Creatinine Ratio 22 % 01/15/18 05:21 Glucose 95 mg/dL (65-100) 01/15/18 05:21 POC Glucose 110 (70-105) H 01/15/18 05:44 Calcium 8.9 mg/dL (8.4-10.2) 01/15/18 05:21 Total Creatine Kinase 43 units/L (30-135) 01/13/18 18:04 Troponin T < 0.010 ng/mL (0.00-0.029) 01/13/18 18:04 NT-Pro-B Natriuret Pep 1537 pg/mL (0-900) H 01/13/18 23:41
[2018-01-15] MEDS: AMBIEN PO SCH (21:57)
[2018-01-15] MEDS ORDERED: HumaLOG SUB-Q ONE (22:00)
[2018-01-16 05:53] LABS: Basophils % (Auto) 0.6 % (0.0-1.8); Eosinophils # (Auto) 0.2 K/mm3 (0.0-0.4); Eosinophils % (Auto) 2.3 % (0.0-4.3); Hematocrit 34.4 % (30.3-42.9); Hemoglobin 11.3 gm/dl (10.1-14.3); Lymphocytes # (Auto) 1.9 K/mm3 (1.2-5.4); Lymphocytes % (Auto) 25.8 % (13.4-35.0); Mean Corpuscular HGB Conc 33 % (30-34); Mean Corpuscular Hemoglobin 26 pg (28-32); Mean Corpuscular Volume 79 fl (79-97); Monocytes # (Auto) 0.6 K/mm3 (0.0-0.8); Monocytes % (Auto) 8.4 % (0.0-7.3); Platelet Count 201 K/mm3 (140-440); Red Blood Count 4.37 M/mm3 (3.65-5.03); Red Cell Distribution Width 15.8 % (13.2-15.2)
[2018-01-16] MEDS: LASIX IV SCH ×2 (05:55→18:02)
[2018-01-16 06:10] LABS: Calcium 9.1 mg/dL (8.4-10.2)
[2018-01-16] MEDS: DUONEB *Not for PRN Use IH SCH ×2 (07:45→21:21)
[2018-01-16] MEDS: HumaLOG SUB-Q SCH ×4 (08:07→23:12)
--- NOTE | 2018-01-16 09:09 | Progress Note ---
Assessment and Plan Assessment and plan: Acute on chronic diastolic CHF exacerbation. BNP is elevated at 1537 on admission. Continue IV Lasix, resume appropriate home medications, cardiology consultion pending. Echocardiogram on 04/2016 revealed mild concentric LVH with EF of 50-55%. Repeat echocardiogram. Pulmonary hypertension. Continue O2 for supportive care. Echo from 2015 revealed RVSP of 71 mmHg but now worse RVSP of 118 mm Hg on echo done 12/2017. On Tadalafil but her pulmonary arterial hypertension is not responding well. Cardiology Discussed with patient about cardiac cath and further rx at tertiary care center. Patient says she has issues with bleeding in past. Therefore, cardiology potentially to hold anticoagulation in anticipation for cath on Tuesday. fib, rate controlled. Continue current medications. Continue pradaxa Diabetes mellitus. Continue Accu-Cheks and sliding scale insulin. Hypertension. Continue antihypertensive medications. CAD. Per cardiology. DVT prophylaxis. Patient is on pradaxa History Interval history: No new issues overnight. Hospitalist Physical - Constitutional Vitals: Temp Pulse Resp BP Pulse Ox 97.8 F 67 18 126/63 93 01/16/18 07:39 01/16/18 08:01 01/16/18 08:01 01/16/18 07:39 01/16/18 07:52 General appearance: Present: no acute distress, well-nourished - EENT Eyes: Present: PERRL, EOM intact ENT: hearing intact, clear oral mucosa, dentition normal - Neck Neck: Present: supple, normal ROM - Respiratory Respiratory effort: normal Respiratory: bilateral: CTA - Cardiovascular Rhythm: regular Heart Sounds: Present: S1 & S2. Absent: gallop, rub - Extremities Extremities: no ischemia, No edema, Full ROM - Abdominal General gastrointestinal: soft, non-tender, non-distended, normal bowel sounds - Integumentary Integumentary: Present: clear, warm, dry - Neurologic Neurologic: CNII-XII intact, moves all extremities Results - Labs CBC & Chem 7: 01/16/18 05:18 01/16/18 05:18 Labs: Laboratory Last Values WBC 7.4 K/mm3 (4.5-11.0) 01/16/18 05:18 RBC 4.37 M/mm3 (3.65-5.03) 01/16/18 05:18 Hgb 11.3 gm/dl (10.1-14.3) 01/16/18 05:18 Hct 34.4 % (30.3-42.9) 01/16/18 05:18 MCV 79 fl (79-97) 01/16/18 05:18 MCH 26 pg (28-32) L 01/16/18 05:18 MCHC 33 % (30-34) 01/16/18 05:18 RDW 15.8 % (13.2-15.2) H 01/16/18 05:18 Plt Count 201 K/mm3 (140-440) 01/16/18 05:18 Lymph % (Auto) 25.8 % (13.4-35.0) 01/16/18 05:18 [place] % (Auto) 8.4 % (0.0-7.3) H 01/16/18 05:18 Eos % (Auto) 2.3 % (0.0-4.3) 01/16/18 05:18 Baso % (Auto) 0.6 % (0.0-1.8) 01/16/18 05:18 Lymph # 1.9 K/mm3 (1.2-5.4) 01/16/18 05:18 [place] # 0.6 K/mm3 (0.0-0.8) 01/16/18 05:18 Eos # 0.2 K/mm3 (0.0-0.4) 01/16/18 05:18 Baso # 0.0 K/mm3 (0.0-0.1) 01/16/18 05:18 Seg Neutrophils % 62.9 % (40.0-70.0) 01/16/18 05:18 Seg Neutrophils # 4.7 K/mm3 (1.8-7.7) 01/16/18 05:18 PT 17.8 Sec. (12.2-14.9) H 01/13/18 18:04 INR 1.38 (0.87-1.13) H 01/13/18 18:04 APTT 57.1 Sec. (24.2-36.6) H 01/13/18 18:04 Sodium 138 mmol/L (137-145) 01/16/18 05:18 Potassium 4.1 mmol/L (3.6-5.0) 03/12/18 05:18 Chloride 97.7 mmol/L (98-107) L 01/16/18 05:18 Carbon Dioxide 25 mmol/L (22-30) 01/16/18 05:18 Anion Gap 19 mmol/L 01/16/18 05:18 BUN 33 mg/dL (7-17) H 01/16/18 05:18 Creatinine 1.3 mg/dL (0.7-1.2) H 01/16/18 05:18 Estimated GFR 40 ml/min 01/16/18 05:18 BUN/Creatinine Ratio 25 % 01/16/18 05:18 Glucose 102 mg/dL (65-100) H 01/16/18 05:18 POC Glucose 106 (70-105) H 01/16/18 07:22 Calcium 9.1 mg/dL (8.4-10.2) 01/16/18 05:18 Total Creatine Kinase 43 units/L (30-135) 01/13/18 18:04 Troponin T < 0.010 ng/mL (0.00-0.029) 01/13/18 18:04 NT-Pro-B Natriuret Pep 1537 pg/mL (0-900) H 01/13/18 23:41
[2018-01-16] MEDS: DIOVAN PO SCH (10:26)
[2018-01-16] MEDS: CARDIZEM CD PO SCH (10:28)
[2018-01-16] MEDS: BABY ASPIRIN PO SCH (10:29)
[2018-01-16] MEDS: COREG PO SCH ×2 (10:29→22:35)
[2018-01-16] MEDS: CLARITIN PO SCH (10:30)
[2018-01-16] MEDS: NEURONTIN PO SCH ×2 (10:31→22:35)
--- NOTE | 2018-01-16 14:58 | Progress Note ---
Assessment and Plan Assessment: Severe pulmonary HTN - RVSP 118mmHg Chronic atrial fibrillation - last Pradaxa dose 3 AM; Pradaxa held pending possible LHC/RHC CAD - s/p PCI in 2010 and 2012 Hypertension Hyperlipidemia Diabetes Plan: Pt to be tx to [place] for further eval/management per pulmonary HTN specialist Dr. Damon Dhillon. D/w hospitalist. Assessment and plan reviewed with pt at bedside. The patient has been seen in conjunction with Dr. Huynh who agrees with the assessment and plan of care. Subjective Date of service: 01/16/18 Principal diagnosis: pulm HTN Interval history: pt resting in bed, c/o SOB. Objective Last Vital Signs Temp 97.8 F 01/16/18 07:39 Pulse 75 01/16/18 10:29 Resp 18 01/16/18 08:01 BP 126/63 01/16/18 10:29 Pulse Ox 93 01/16/18 07:52 - Physical Examination General: No Apparent Distress HEENT: Positive: PERRL Neck: Positive: neck supple Cardiac: Positive: Reg Rate and Rhythm, S1/S2 Lungs: Positive: Decreased Breath Sounds Neuro: Positive: Grossly Intact Abdomen: Positive: Unremarkable Skin: Negative: Rash Extremities: Absent: edema - Labs and Meds CBC 01/16/18 Range/Units 05:18 WBC 7.4 (4.5-11.0) K/mm3 RBC 4.37 (3.65-5.03) M/mm3 Hgb 11.3 (10.1-14.3) gm/dl Hct 34.4 (30.3-42.9) % Plt Count 201 (140-440) K/mm3 Lymph # 1.9 (1.2-5.4) K/mm3 [place] # 0.6 (0.0-0.8) K/mm3 Eos # 0.2 (0.0-0.4) K/mm3 Baso # 0.0 (0.0-0.1) K/mm3 Comprehensive Metabolic Panel 01/16/18 Range/Units 05:18 Sodium 138 (137-145) mmol/L Potassium 4.1 (3.6-5.0) mmol/L Chloride 97.7 L (98-107) mmol/L Carbon Dioxide 25 (22-30) mmol/L BUN 33 H (7-17) mg/dL Creatinine 1.3 H (0.7-1.2) mg/dL Glucose 102 H (65-100) mg/dL Calcium 9.1 (8.4-10.2) mg/dL - Imaging and Cardiology EKG: image reviewed - Telemetry EKG Rhythm: Sinus Rhythm
--- NOTE | 2018-01-16 21:18 | Consultation ---
HISTORY OF PRESENT ILLNESS: This is a 72-year-old female being followed by Dr. Todd Callejas in the office, was evaluated in the office on 01/13/2018. She is getting short of breath with normal activities and she was recently hospitalized at [facility] and apparently fluid was taken out. She was admitted here for further evaluation. She was evaluated in the Emergency Room and a chest x-ray done in the Emergency Room showed cardiomegaly with mild pulmonary venous hypertension changes. No pulmonary edema seen. Mild hyperinflation suggests underlying COPD. Her other laboratory data showed hemoglobin of 9.9 g/dL, platelet count of 186,000. INR was 1.38. Potassium was 3.9 with BUN of 16 and creatinine of 1.0. Troponin T was less than 0.010 and natriuretic proBNP was 1537. The patient's main complaint is she is not able to do her routine activities even walking inside the house. She is getting tired and short of breath. PAST MEDICAL HISTORY: Included history of essential hypertension, known coronary artery disease with coronary intervention done in the past. The patient also has history of severe pulmonary hypertension on tadalafil. History of hypertension. The patient had echocardiogram performed on 01/04/2018, which showed ejection fraction of 55%-60% with mild left ventricular hypertrophy. Diastolic septal flattening due to RV overload noted. Right ventricle is mildly dilated with mildly reduced right ventricular function. Left atrium is severely enlarged. There is moderate mitral regurgitation noted. Aortic valve showed minimal aortic regurgitation. Right ventricular systolic pressure was estimated to be 118 mmHg with severe tricuspid regurgitation. The patient apparently was hospitalized on 12/26/2017 was treated for CHF and exacerbation. PAST MEDICAL HISTORY: Includes paroxysmal atrial fibrillation, diabetes mellitus, heart failure and hypertension. PAST SURGICAL HISTORY: Includes appendectomy, cholecystectomy and hysterectomy. SOCIAL HISTORY: Does not smoke, but lived with people who smoked. No history of alcohol abuse or drug abuse. ALLERGIES: PENICILLIN, CODEINE, AND HYDROCODONE. MEDICATIONS: At home included dabigatran 150 mg b.i.d., Cardizem CD 240 mg a day, valsartan 320 mg a day, tadalafil t.i.d. 40 mg once a day, furosemide 40 mg a day, Janumet mg b.i.d. in addition to carvedilol 3.125 mg b.i.d., Keppra 500 mg b.i.d., gabapentin 300 mg b.i.d., Ambien 10 mg at bedtime and DuoNeb p.r.n. PHYSICAL EXAMINATION: GENERAL: The patient is comfortable at rest. HEENT: Conjunctivae pink. Sclerae anicteric. NECK: Supple. Difficult to evaluate for JVD. HEART: Regular, probably S4, no significant murmurs noted. LUNGS: Decreased breath sounds noted. ABDOMEN: Benign. EXTREMITIES: Without edema. NEUROLOGIC: Alert, oriented x 3. FINAL IMPRESSION: 1. Severe shortness of breath with mild exertion with markedly elevated right ventricular systolic pressure of 118 mmHg with normal LV systolic function, enlarged left atrium. Moderate mitral regurgitation noted. The patient has a known diagnosis of pulmonary hypertension, which was felt to be a pulmonary arterial hypertension, mostly idiopathic and was started on tadalafil which she is taking; however, her pulmonary hypertension is getting worse and is more symptomatic. Clinical examination is not suggestive of left ventricular failure at this time to explain her symptoms. Probably the patient would need further aggressive treatment for her pulmonary hypertension. Consider repeat left heart and right heart catheterization with intention of giving her IV medications for her pulmonary hypertension. 2. Known coronary artery disease status post coronary intervention in 2012. We will get further details. 3. Hypertension. 4. Diabetes mellitus. 5. Question of chronic obstructive pulmonary disease, being followed by Dr. Beltran. History of paroxysmal atrial fibrillation. We will review her records. She will be monitored in Telemetry. ADDENDUM The patient has had cardiac catheterization done 06/06/2013, at [facility]. At that time, diagnosed to have severe pulmonary hypertension with pulmonary artery pressure of 87/27, with a mean of 53. PA systolic pressure was as high as 100 mm during the study. It was felt that pulmonary hypertension is due to the combination of both the pulmonary artery as well as pulmonary venous hypertension. Pulmonary vascular resistance was found to be 5.6 [place] units. The patient at that same day was noted to have obstructive coronary disease involving 90% stenosis of the proximal segment of the large codominant circumflex and 75% stenosis involving the very proximal segment of the right coronary artery with patent stents in the mid LAD and mid right coronary artery. Left ventricular systolic function at that time was found to be 55%. No evidence of intracardiac shunts was not done based on the saturations. The patient had catheterization done on 07/25/2012, at which time patent left anterior descending and right coronary stents were noted. Ejection fraction was 60%. Elevated end-diastolic pressure was noted. The patient has history of atrial fibrillation and severe pulmonary hypertension at that time, was started on Coumadin. EKG performed on 12/26/2017, showed atrial fibrillation with nonspecific intraventricular conduction defect. JOB# [id number] LINO/DEEPTHI MI
[2018-01-16] MEDS: AMBIEN PO SCH (22:35)
--- NOTE | 2018-01-16 23:37 | Consultation ---
ADDENDUM The patient has had cardiac catheterization done 06/06/2013, at [facility]. At that time, diagnosed to have severe pulmonary hypertension with pulmonary artery pressure of 87/27, with a mean of 53. PA systolic pressure was as high as 100 mm during the study. It was felt that pulmonary hypertension is due to the combination of both the pulmonary artery as well as pulmonary venous hypertension. Pulmonary vascular resistance was found to be 5.6 [place] units. The patient at that same day was noted to have obstructive coronary disease involving 90% stenosis of the proximal segment of the large codominant circumflex and 75% stenosis involving the very proximal segment of the right coronary artery with patent stents in the mid LAD and mid right coronary artery. Left ventricular systolic function at that time was found to be 55%. No evidence of intracardiac shunts was not done based on the saturations. The patient had catheterization done on 07/25/2012, at which time patent left anterior descending and right coronary stents were noted. Ejection fraction was 60%. Elevated end-diastolic pressure was noted. The patient has history of atrial fibrillation and severe pulmonary hypertension at that time, was started on Coumadin. EKG performed on 12/26/2017, showed atrial fibrillation with nonspecific intraventricular conduction defect. JOB# [id number] LINO/DEEPTHI
[2018-01-17] MEDS: LASIX IV SCH ×2 (05:11→17:50)
[2018-01-17 05:42] LABS: Basophils # (Auto) 0.1 K/mm3 (0.0-0.1); Basophils % (Auto) 0.8 % (0.0-1.8); Eosinophils # (Auto) 0.2 K/mm3 (0.0-0.4); Eosinophils % (Auto) 2.7 % (0.0-4.3); Hematocrit 34.6 % (30.3-42.9); Hemoglobin 11.1 gm/dl (10.1-14.3); Lymphocytes # (Auto) 1.6 K/mm3 (1.2-5.4); Lymphocytes % (Auto) 24.1 % (13.4-35.0); Mean Corpuscular HGB Conc 32 % (30-34); Mean Corpuscular Volume 80 fl (79-97); Monocytes # (Auto) 0.6 K/mm3 (0.0-0.8); Monocytes % (Auto) 8.7 % (0.0-7.3); Platelet Count 201 K/mm3 (140-440); Red Blood Count 4.33 M/mm3 (3.65-5.03); Red Cell Distribution Width 15.7 % (13.2-15.2)
[2018-01-17 05:47] LABS: INR 1.19 (0.87-1.13)
[2018-01-17 05:49] LABS: Partial Thromboplastin Time 45.6 Sec. (24.2-36.6)
[2018-01-17 05:55] LABS: Mean Corpuscular Hemoglobin 26 pg (28-32)
[2018-01-17 06:00] LABS: Calcium 9.4 mg/dL (8.4-10.2)
[2018-01-17] MEDS: DUONEB *Not for PRN Use IH SCH ×2 (08:31→19:34)
[2018-01-17] MEDS: HumaLOG SUB-Q SCH ×4 (08:59→21:38)
[2018-01-17] MEDS: BABY ASPIRIN PO SCH (09:45)
[2018-01-17] MEDS: NEURONTIN PO SCH ×2 (09:45→21:37)
[2018-01-17] MEDS: COREG PO SCH ×2 (09:45→21:37)
[2018-01-17] MEDS: CLARITIN PO SCH (09:45)
[2018-01-17] MEDS: CARDIZEM CD PO SCH (09:45)
[2018-01-17] MEDS: DIOVAN PO SCH (09:46)
--- NOTE | 2018-01-17 10:34 | Progress Note ---
Assessment and Plan Assessment: Severe pulmonary HTN - RVSP 118mmHg Chronic atrial fibrillation - last Pradaxa dose 01/15 AM; Pradaxa held pending possible LHC/RHC CAD - s/p PCI in 2010 and 2012 Hypertension Hyperlipidemia Diabetes Plan: Pt to be tx to [facility] for further eval/management per pulmonary HTN specialist Dr. Damon Dhillon. Awaiting bed availability. D/w hospitalist. Assessment and plan reviewed with pt at bedside. The patient has been seen in conjunction with Dr. Huynh who agrees with the assessment and plan of care. Subjective Date of service: 01/17/18 Principal diagnosis: pulm HTN Interval history: pt resting in bed, currently off O2, states she is less SOB this AM and has ambulated around unit without difficulty. awaiting tx to [facility]. Objective Last Vital Signs Temp 98.1 F 01/17/18 07:55 Pulse 65 01/17/18 09:45 Resp 18 01/17/18 08:49 BP 121/61 01/17/18 09:46 Pulse Ox 92 01/17/18 08:49 - Physical Examination General: No Apparent Distress HEENT: Positive: PERRL Neck: Positive: neck supple Cardiac: Positive: irregularly irregular, S1/S2 Lungs: Positive: Decreased Breath Sounds Neuro: Positive: Grossly Intact Abdomen: Positive: Unremarkable Skin: Negative: Rash Extremities: Absent: edema - Labs and Meds Coagulation 01/17/18 Range/Units 05:22 PT 15.8 H (12.2-14.9) Sec. INR 1.19 H (0.87-1.13) APTT 45.6 H (24.2-36.6) Sec. CBC 01/17/18 Range/Units 05:07 WBC 6.8 (4.5-11.0) K/mm3 RBC 4.33 (3.65-5.03) M/mm3 Hgb 11.1 (10.1-14.3) gm/dl Hct 34.6 (30.3-42.9) % Plt Count 201 (140-440) K/mm3 Lymph # 1.6 (1.2-5.4) K/mm3 [place] # 0.6 (0.0-0.8) K/mm3 Eos # 0.2 (0.0-0.4) K/mm3 Baso # 0.1 (0.0-0.1) K/mm3 Comprehensive Metabolic Panel 01/17/18 Range/Units 05:07 Sodium 138 (137-145) mmol/L Potassium 4.0 (3.6-5.0) mmol/L Chloride 97.8 L (98-107) mmol/L Carbon Dioxide 25 (22-30) mmol/L BUN 40 H (7-17) mg/dL Creatinine 1.1 (0.7-1.2) mg/dL Glucose 105 H (65-100) mg/dL Calcium 9.4 (8.4-10.2) mg/dL - Imaging and Cardiology EKG: image reviewed
--- NOTE | 2018-01-17 15:54 | Progress Note ---
Assessment and Plan Assessment and plan: --Pulmonary hypertension: Continue O2 titrate O2 sats more than 90% Echo from 2015 revealed RVSP of 71 mmHg but now worse RVSP of 118 mm Hg on echo done 12/2017. On Tadalafil but her pulmonary arterial hypertension is not responding well. Cardiology Discussed with patient about cardiac cath and further rx at tertiary care center. Patient says she has issues with bleeding in past. cardiology held anticoagulation in anticipation for cath . --Acute on chronic diastolic CHF :Continue the anti-failure medications , cardiology following Echocardiogram on 04/2016 revealed mild concentric LVH with EF of 50-55%. --A. fib, rate controlled. Continue current medications. Continue pradaxa --Diabetes mellitus. Continue Accu-Cheks and sliding scale insulin. --Hypertension. Continue antihypertensive medications. --CAD. Per cardiology. --DVT prophylaxis. Patient is on pradaxa Awaiting transfer to [facility] as soon as a bed is available History Interval history: Patient seen and examined medical records reviewed Awaiting transfer to [facility] for further eval/management per pulmonary HTN specialist Dr. Damon Dhillon. Awaiting bed availability. Patient denies any chest pain or shortness of breath Denies headache or dizziness Alert awake oriented 3 Vital signs reviewed Hospitalist Physical - Constitutional Vitals: Temp Pulse Resp BP Pulse Ox 98.0 F 64 18 130/64 96 01/17/18 11:48 01/17/18 11:48 01/17/18 11:48 01/17/18 11:48 01/17/18 11:48 General appearance: Present: no acute distress, well-nourished, obese - EENT Eyes: Present: PERRL, EOM intact - Neck Neck: Present: supple, normal ROM - Respiratory Respiratory effort: normal Respiratory: bilateral: diminished, rales, negative: rhonchi, wheezing - Cardiovascular Rhythm: regular Heart Sounds: Present: S1 & S2 - Extremities Extremities: no ischemia, No edema - Abdominal General gastrointestinal: soft, non-tender, non-distended, normal bowel sounds - Integumentary Integumentary: Present: clear, warm - Psychiatric Psychiatric: appropriate mood/affect, cooperative - Neurologic Neurologic: CNII-XII intact, moves all extremities Results - Labs CBC & Chem 7: 01/17/18 05:07 01/17/18 05:07 Labs: Laboratory Last Values WBC 6.8 K/mm3 (4.5-11.0) 01/17/18 05:07 RBC 4.33 M/mm3 (3.65-5.03) 01/17/18 05:07 Hgb 11.1 gm/dl (10.1-14.3) 01/17/18 05:07 Hct 34.6 % (30.3-42.9) 01/17/18 05:07 MCV 80 fl (79-97) 01/17/18 05:07 MCH 26 pg (28-32) L 01/17/18 05:07 MCHC 32 % (30-34) 01/17/18 05:07 RDW 15.7 % (13.2-15.2) H 01/17/18 05:07 Plt Count 201 K/mm3 (140-440) 01/17/18 05:07 Lymph % (Auto) 24.1 % (13.4-35.0) 01/17/18 05:07 Kern % (Auto) 8.7 % (0.0-7.3) H 01/17/18 05:07 Eos % (Auto) 2.7 % (0.0-4.3) 01/17/18 05:07 Baso % (Auto) 0.8 % (0.0-1.8) 01/17/18 05:07 Lymph # 1.6 K/mm3 (1.2-5.4) 01/17/18 05:07 Kern # 0.6 K/mm3 (0.0-0.8) 01/17/18 05:07 Eos # 0.2 K/mm3 (0.0-0.4) 01/17/18 05:07 Baso # 0.1 K/mm3 (0.0-0.1) 01/17/18 05:07 Seg Neutrophils % 63.7 % (40.0-70.0) 01/17/18 05:07 Seg Neutrophils # 4.3 K/mm3 (1.8-7.7) 01/17/18 05:07 PT 15.8 Sec. (12.2-14.9) H 01/17/18 05:22 INR 1.19 (0.87-1.13) H 01/17/18 05:22 APTT 45.6 Sec. (24.2-36.6) H 01/17/18 05:22 Sodium 138 mmol/L (137-145) 01/17/18 05:07 Potassium 4.0 mmol/L (3.6-5.0) 01/17/18 05:07 Chloride 97.8 mmol/L (98-107) L 01/17/18 05:07 Carbon Dioxide 25 mmol/L (22-30) 01/17/18 05:07 Anion Gap 19 mmol/L 01/17/18 05:07 BUN 40 mg/dL (7-17) H 01/17/18 05:07 Creatinine 1.1 mg/dL (0.7-1.2) 01/17/18 05:07 Estimated GFR 49 ml/min 01/17/18 05:07 BUN/Creatinine Ratio 36 % 01/17/18 05:07 Glucose 105 mg/dL (65-100) H 01/17/18 05:07 POC Glucose 126 (70-105) H 01/17/18 11:55 Calcium 9.4 mg/dL (8.4-10.2) 01/17/18 05:07 Total Creatine Kinase 43 units/L (30-135) 01/13/18 18:04 Troponin T < 0.010 ng/mL (0.00-0.029) 01/13/18 18:04 NT-Pro-B Natriuret Pep 1537 pg/mL (0-900) H 01/13/18 23:41
[2018-01-17] MEDS: AMBIEN PO SCH (21:37)
[2018-01-18] MEDS: LASIX IV SCH (05:51)
[2018-01-18] MEDS: HumaLOG SUB-Q SCH ×2 (08:35→11:30)
[2018-01-18] MEDS: DUONEB *Not for PRN Use IH SCH (08:46)
[2018-01-18] MEDS: NEURONTIN PO SCH (10:40)
[2018-01-18] MEDS: COREG PO SCH (10:41)
[2018-01-18] MEDS: DIOVAN PO SCH (10:41)
[2018-01-18] MEDS: CARDIZEM CD PO SCH (10:41)
[2018-01-18] MEDS: CLARITIN PO SCH (10:41)
[2018-01-18] MEDS: BABY ASPIRIN PO SCH (10:41)
--- NOTE | 2018-01-18 13:49 | Progress Note ---
Assessment and Plan Assessment: Severe pulmonary HTN - RVSP 118mmHg Acute diastolic heart failure Chronic atrial fibrillation - may resume Pradaxa CAD - s/p PCI in 2010 and 2012 Hypertension Hyperlipidemia Diabetes Plan: [place] has been on diversion and thus pt has not yet been transferred. Pt appears medically stable and may discharge home from cardiology standpoint to follow up as OP with pulm HTN specialist. D/w Dr. Damon Dhillon. Will plan for pt to f/u with Dr. Dhillon within 1-2 weeks of hospital discharge. Our office will call pt with appt info. Follow up in our [place] office with Dr. Kimi Callejas on 01/24/2018 @ 3:00PM. Assessment and plan reviewed with pt at bedside. The patient has been seen in conjunction with Dr. Huynh who agrees with the assessment and plan of care. Subjective Date of service: 01/18/18 Principal diagnosis: pulm HTN Interval history: pt resting in bed, currently off O2, no current cardiac complaints. awaiting tx to [place]. Objective Last Vital Signs Temp 97.8 F 01/18/18 11:24 Pulse 67 01/18/18 11:24 Resp 20 01/18/18 11:24 BP 129/68 01/18/18 11:24 Pulse Ox 96 01/18/18 11:24 - Physical Examination General: No Apparent Distress HEENT: Positive: PERRL Neck: Positive: neck supple Cardiac: Positive: irregularly irregular, S1/S2 Lungs: Positive: Decreased Breath Sounds Neuro: Positive: Grossly Intact Abdomen: Positive: Unremarkable Skin: Negative: Rash Extremities: Absent: edema - Imaging and Cardiology EKG: image reviewed - Telemetry EKG Rhythm: Atrial Fibrillation
--- NOTE | 2018-01-18 15:24 | Discharge Summary ---
Providers - Providers Date of Admission: 01/14/18 00:29 Date of discharge: 01/18/18 Attending physician: AMANDO WHEELER 01/14/18 02:05 Consult to Physician [CONS] Routine Consulting Provider: ERASMO HAWTHORNE Reason For Exam: CHF exacerbation Place consult to:: [facility] Notified:: ANSWERING SERVICES Phone number called:: [phone] Was contact made?: Yes If yes, spoke with:: LIYA Time called:: 08:55 Comment:: CONSULT COMPLETED(re-consult 01-15-18) Primary care physician: RESEARCH MICROBIOLOGIST Hospitalization Condition: Stable Disposition: DC-01 TO HOME OR SELFCARE Core Measure Documentation - Palliative Care Palliative Care/ Comfort Measures: Not Applicable - Core Measures Any of the following diagnoses?: none Exam - Constitutional Vitals: Temp Pulse Resp BP Pulse Ox 97.8 F 67 20 129/68 96 01/18/18 11:24 01/18/18 11:24 01/18/18 11:24 01/18/18 11:24 01/18/18 11:24 General appearance: Present: no acute distress, well-nourished, obese - EENT Eyes: Present: PERRL, EOM intact - Neck Neck: Present: supple, normal ROM - Respiratory Respiratory effort: normal Respiratory: bilateral: diminished, negative: rales, rhonchi, wheezing - Cardiovascular Rhythm: regular Heart Sounds: Present: S1 & S2 - Extremities Extremities: no ischemia, No edema - Abdominal General gastrointestinal: Present: soft, non-tender, non-distended, normal bowel sounds - Integumentary Integumentary: Present: clear, warm - Musculoskeletal Musculoskeletal: strength equal bilaterally - Psychiatric Psychiatric: appropriate mood/affect, cooperative - Neurologic Neurologic: CNII-XII intact, moves all extremities Plan Activity: no restrictions Diet: low salt, diabetic Additional Instructions: Follow up [facility] office with Dr. Kimi Hawthorne on 01/24/2018 @ 3:00PM. Follow up with: CYNDI YANEZ MD [Primary Care Provider] - 3-5 Days ERASMO HAWTHORNE MD [Staff Physician] - 01/24/18
[2018-01-18 16:10] VITALS: BP 108/58
== END 2018-01-18 17:43 | disposition home or self-care (01) | DRG 314 ==
LOC: ED 16:02 → 4A 01-14 00:29
PROVIDERS: ADMIT Internal Medicine; ATTEND Internal Medicine
PROC: 4A033R1 Measurement of Arterial Saturation, Peripheral, Percutaneous Approach (ICD-10-PCS; principal; 2018-01-14)
PROC: 5A09457 Assistance with Respiratory Ventilation, 24-96 Consecutive Hours, Continuous Positive Airway Pressure (ICD-10-PCS; 2018-01-14)
DX: I27.20 Pulmonary hypertension, unspecified (principal); I50.33 Acute on chronic diastolic (congestive) heart failure; I11.0 Hypertensive heart disease with heart failure; E11.9 Type 2 diabetes mellitus without complications; Z88.6 Allergy status to analgesic agent; Z88.0 Allergy status to penicillin; Z88.8 Allergy status to other drugs, medicaments and biological substances; I25.10 Atherosclerotic heart disease of native coronary artery without angina pectoris; Z82.49 Family history of ischemic heart disease and other diseases of the circulatory system; E78.5 Hyperlipidemia, unspecified; I48.2 Chronic atrial fibrillation
CPT/HCPCS: 36415; 71046; 80048; 82550; 82962; 83880; 84484; 85025; 85610; 85730; 93005; 93010; 94640; 94660; 94760; 96374; J1815; J1940

== ENCOUNTER 2018-06-21 13:59 | Inpatient (IN) | payer OTHER, MEDICARE ==
[2018-06-21] MEDS ORDERED: BABY ASPIRIN PO ONE (15:02)
--- NOTE | 2018-06-21 15:02 | Emergency Department Report ---
ED General Adult HPI - General Chief complaint: Dyspnea/Respdistress Stated complaint: SOB Time Seen by Provider: 06/21/18 14:50 Source: patient, RN notes reviewed, old records reviewed Mode of arrival: Stretcher Limitations: Physical Limitation - History of Present Illness Initial comments: Conservation Planner: Dr. Callejas This is a 73-year-old female who is not known to this provider previously. Her past medical history includes pulmonary hypertension, essential hypertension, heart disease with stents, paroxysmal A. fib, diabetes, currently on systemic anticoagulation; pradaxa Patient reports that she is not typically on oxygen. She presents to the ER with a complaint of chest pain, shortness of breath, decreased exercise tolerance. Her symptoms started yesterday. The chest pain essential and does not radiates to the back, arms or neck. He does not have exacerbating or relieving factors. The patient complains of worsened shortness of breath. She indicates the source of breath worsens with physical exertion. She indicates a decrease in exercise tolerance from baseline. She reports that she needs to sleep sitting up. She denies unintentional weight loss, and she denies dietary indiscretions. The patient reports compliance with her systemic anticoagulation. She denies leg pain, leg swelling, recent travel, immobility, and she also denies recent hospitalizations. She denies recent cocaine use. -: Gradual, hour(s) Location: chest Radiation: non-radiation Quality: aching Consistency: intermittent Improves with: none Worsens with: none Associated Symptoms: chest pain, malaise, weakness. denies: confusion, cough, diaphoresis, fever/chills, headaches, loss of appetite, nausea/vomiting, rash, seizure, shortness of breath, syncope - Related Data Home Medications Medication Instructions Recorded Confirmed Last Taken Valsartan [Diovan] 160 mg PO QDAY 01/31/14 06/21/18 06/21/18 08:00 Cetirizine HCl [ZyrTEC] 10 mg PO DAILY 11/11/14 06/21/18 06/21/18 08:00 Tadalafil (Nf) [Adcirca (Nf)] 40 mg PO QDAY 11/11/14 06/21/18 06/21/18 08:00 Sitagliptin Phos/Metformin HCl 1 tab PO BID 06/10/16 06/21/18 06/21/18 08:00 [Janumet 50-1,000 mg] clonazePAM [KlonoPIN] 0.5 mg PO DAILY 09/15/16 06/21/18 06/21/18 08:00 Dabigatran Etexilate Mesylate 150 mg PO BID 06/21/18 06/21/18 06/21/18 08:00 [Pradaxa] Diltiazem HCl [Diltiazem 24Hr ER] 240 mg PO DAILY 06/21/18 06/21/18 06/21/18 08: 00 Ferrous Sulfate [Feosol] 325 mg PO QDAY 06/21/18 06/21/18 06/21/18 08:00 Furosemide [Lasix TAB] 40 mg PO QDAY 06/21/18 06/21/18 06/21/18 08:00 Sertraline [Zoloft] 50 mg PO QDAY 06/21/18 06/21/18 06/21/18 08:00 Zolpidem [Ambien] 5 mg PO QHS 06/21/18 06/21/18 06/20/18 21:00 hydrALAZINE [Apresoline] 25 mg PO Q8HR 06/21/18 06/21/18 06/21/18 08:00 Allergies Allergy/AdvReac Type Severity Reaction Status Date / Time Penicillins Allergy Severe Swelling Verified 11/11/14 17:37 codeine AdvReac Nausea Verified 11/11/14 17:37 hydrocodone AdvReac Nausea Verified 11/11/14 17:37 ED Review of Systems ROS: Stated complaint: SOB Other details as noted in HPI Comment: All other systems reviewed and negative ED Past Medical Hx - Past Medical History Previous Medical History?: Yes Hx Hypertension: Yes Hx CVA: Yes Hx Congestive Heart Failure: Yes Hx Diabetes: Yes Hx Arthritis: Yes Hx Kidney Stones: Yes Additional medical history: A-fib, sleep apnea, CAD, hyperlipidemia - Surgical History Past Surgical History?: Yes Hx Coronary Stent: Yes Hx Open Heart Surgery: Yes Hx Cholecystectomy: Yes Hx Appendectomy: Yes Additional Surgical History: heart stent x 4; knee and ankle; hernia repair x 2 - Social History Smoking Status: Never Smoker Substance Use Type: None - Medications Home Medications: Home Medications Medication Instructions Recorded Confirmed Last Taken Type Valsartan [Diovan] 160 mg PO QDAY 01/31/14 06/21/18 06/21/18 08:00 History Cetirizine HCl [ZyrTEC] 10 mg PO DAILY 11/11/14 06/21/18 06/21/18 08:00 History Tadalafil (Nf) [Adcirca (Nf)] 40 mg PO QDAY 11/11/14 06/21/18 06/21/18 08:00 History Sitagliptin Phos/Metformin HCl 1 tab PO BID 06/10/16 06/21/18 06/21/18 08:00 History [Janumet 50-1,000 mg] clonazePAM [KlonoPIN] 0.5 mg PO DAILY 09/15/16 06/21/18 06/21/18 08:00 History Dabigatran Etexilate Mesylate 150 mg PO BID 06/21/18 06/21/18 06/21/18 08:00 History [Pradaxa] Diltiazem HCl [Diltiazem 24Hr ER] 240 mg PO DAILY 06/21/18 06/21/18 06/21/18 08: 00 History Ferrous Sulfate [Feosol] 325 mg PO QDAY 06/21/18 06/21/18 06/21/18 08:00 History Furosemide [Lasix TAB] 40 mg PO QDAY 06/21/18 06/21/18 06/21/18 08:00 History Sertraline [Zoloft] 50 mg PO QDAY 06/21/18 06/21/18 06/21/18 08:00 History Zolpidem [Ambien] 5 mg PO QHS 06/21/18 06/21/18 06/20/18 21:00 History hydrALAZINE [Apresoline] 25 mg PO Q8HR 06/21/18 06/21/18 06/21/18 08:00 History ED Physical Exam - General Limitations: Physical Limitation General appearance: alert, in no apparent distress - Head Head exam: Present: atraumatic, normocephalic - Eye Eye exam: Present: normal appearance, EOMI. Absent: nystagmus - ENT ENT exam: Present: normal exam, normal orophraynx, mucous membranes moist, normal external ear exam - Neck Neck exam: Present: normal inspection, full ROM - Respiratory Respiratory exam: Present: decreased breath sounds. Absent: respiratory distress - Cardiovascular Cardiovascular Exam: Present: regular rate, normal heart sounds. Absent: bradycardia, tachycardia, systolic murmur, diastolic murmur, rubs, gallop - GI/Abdominal GI/Abdominal exam: Present: soft, normal bowel sounds. Absent: distended, tenderness, guarding, rebound, rigid, pulsatile mass - Extremities Exam Extremities exam: Present: normal inspection, full ROM, normal capillary refill , pedal edema (borderline 1+ pitting edema), other (2+ pulses noted in the bilateral upper, lower extremities. Compartments soft. No long bony tenderness. The pelvis is stable.). Absent: calf tenderness - Back Exam Back exam: Present: normal inspection, full ROM. Absent: tenderness, CVA tenderness (R), paraspinal tenderness, vertebral tenderness - Neurological Exam Neurological exam: Present: alert, oriented X3, CN II-XII intact, other ( Extraocular movements intact. Tongue midline. No facial droop. Facial sensation intact to light touch in the V1, V2, V3 distribution bilaterally. 5 and 5 strength in 4 extremities.. Sensation is intact to light touch in 4 extremities.). Absent: motor sensory deficit - Psychiatric Psychiatric exam: Present: anxious - Skin Skin exam: Present: warm, dry, intact, normal color. Absent: rash ED Course Vital Signs 06/21/18 06/21/18 06/21/18 14:00 14:11 14:15 Temperature 98.0 F Pulse Rate 66 80 66 Respiratory 24 16 24 Rate Blood Pressure 149/67 149/67 O2 Sat by Pulse 98 99 99 Oximetry 06/21/18 14:31 Temperature Pulse Rate 71 Respiratory 18 Rate Blood Pressure 133/57 O2 Sat by Pulse 97 Oximetry - Reevaluation(s) Reevaluation #1: 06/21/18 16:07 Differential diagnosis, including but not limited to: Progressive pulmonary hypertension, congestive heart failure, acute coronary syndrome, pericarditis, myocarditis, congestive heart failure, pneumonia, hiatal hernia Assessment and plan: 73-year-old female who is compliant with her anticoagulation therapy, pradaxa, who denies pulmonary embolus and DVT risk factors, with extensive cardiac history and complex history of pulmonary hypertension. She reports that she has not followed up with her pulmonary hypertension specialist at [place] secondary to travel issues. She is not sure if she is compliant with her taladafil Patient is most likely experiencing the natural history of her underlying pulmonary hypertension as well as her coronary artery disease. We will check basic laboratory studies, treat her symptoms, and we will consult her editorial assistant. She will likely require admission for medical optimization. She does not appear to be grossly fluid overloaded at this time, and reports compliance with her Lasix therapy. Reevaluation #2: 06/21/18 17:35 Laboratory studies reviewed and are appreciated. Cardiology is paged. The Hospital physician, Dr. Manley accepted the patient to his service. - Consultations Consultation #1: 06/21/18 18:06 Discussed with cardiology, Dr. Callejas, his group will follow in consultation. ED Medical Decision Making - Lab Data Result diagrams: 06/21/18 16:06 06/21/18 16:06 Vital Signs 06/21/18 06/21/18 06/21/18 14:00 14:11 14:15 Temperature 98.0 F Pulse Rate 66 80 66 Respiratory 24 16 24 Rate Blood Pressure 149/67 149/67 O2 Sat by Pulse 98 99 99 Oximetry 06/21/18 14:31 Temperature Pulse Rate 71 Respiratory 18 Rate Blood Pressure 133/57 O2 Sat by Pulse 97 Oximetry - EKG Data -: EKG Interpreted by Ct - EKG Data 06/21/18 17:34 Atrial fibrillation, 86 bpm, left axis deviation, poor R progression, high left ventricular voltage, interventricular conduction delay, QTC prolonged, abnormal EKG, not a STEMI - Radiology Data Radiology results: report reviewed, image reviewed [facility] [address] [place] [address] XRay Report Signed Patient: MOHSEN BENOIT MR#: [id number] : 1945 Acct:[id number] Age/Sex: 73 / F ADM Date: 06/21/18 Loc: ED Attending Dr: Ordering Physician: CHADD CARDOZA MD Date of Service: 06/21/18 Procedure(s): XR chest 1V ap Accession Number(s): [id number] cc: CHADD CARDOZA MD Fluoro Time In Minutes: PORTABLE CHEST INDICATION: Dyspnea. COMPARISON: 01/13/2018 FINDINGS: Portable, frontal chest radiograph again demonstrates mild cardiomegaly, aortic knob calcifications and central bronchovascular prominence/pulmonary arterial hypertension. No pleural effusions or CHF. EKG leads. Mild AC joint degenerative changes. CONCLUSION: Cardiomegaly again noted in this patient with pulmonary arterial hypertension, as described. Please correlate. Thank you for the opportunity to participate in this patient's care. Transcribed By: RS Dictated By: ROGER BOYKIN MD Electronically Authenticated By: ROGER BOYKIN MD Signed Date/Time: 06/21/18 1522 Critical care attestation.: If time is entered above; I have spent that time in minutes in the direct care of this critically ill patient, excluding procedure time. ED Disposition Clinical Impression: Chest pain, CHF (congestive heart failure), Pulmonary hypertension Disposition: OP ADMIT IP TO THIS HOSP Is pt being admited?: Yes Does the pt Need Aspirin: Yes Condition: Fair Instructions: Chest Pain (ED) Referrals: PRIMARY CARE, [Primary Care Provider] - 3-5 Days
--- NOTE | 2018-06-21 15:31 | XRay Report ---
PORTABLE CHEST INDICATION: Dyspnea. COMPARISON: 01/13/2018 FINDINGS: Portable, frontal chest radiograph again demonstrates mild cardiomegaly, aortic knob calcifications and central bronchovascular prominence/pulmonary arterial hypertension. No pleural effusions or CHF. EKG leads. Mild AC joint degenerative changes. CONCLUSION: Cardiomegaly again noted in this patient with pulmonary arterial hypertension, as described. Please correlate. Thank you for the opportunity to participate in this patient's care.
[2018-06-21] MEDS ORDERED: NITROSTAT SL PRN (16:09)
[2018-06-21] MEDS ORDERED: LASIX IV ONE (16:09)
[2018-06-21 16:43] LABS: Red Blood Count 3.99 M/mm3 (3.65-5.03)
[2018-06-21 16:44] LABS: Basophils % (Auto) 0.4 % (0.0-1.8); Eosinophils # (Auto) 0.1 K/mm3 (0.0-0.4); Hematocrit 31.9 % (30.3-42.9); Hemoglobin 10.3 gm/dl (10.1-14.3); Lymphocytes % (Auto) 16.5 % (13.4-35.0); Mean Corpuscular HGB Conc 32 % (30-34); Mean Corpuscular Hemoglobin 26 pg (28-32); Mean Corpuscular Volume 80 fl (79-97); Monocytes # (Auto) 0.4 K/mm3 (0.0-0.8); Monocytes % (Auto) 6.9 % (0.0-7.3); Platelet Count 160 K/mm3 (140-440); Red Cell Distribution Width 15.7 % (13.2-15.2)
[2018-06-21 16:56] LABS: INR 1.3 (0.87-1.13)
[2018-06-21 16:57] LABS: Alanine Aminotransferase 9 units/L (7-56); Albumin 4.2 g/dL (3.9-5); BUN/Creatinine Ratio 19; Blood Urea Nitrogen 13 mg/dL (7-17); Calcium 10.2 mg/dL (8.4-10.2); Hemolysis Index 2; Partial Thromboplastin Time 50.1 Sec. (24.2-36.6)
--- NOTE | 2018-06-21 17:32 | History and Physical Report ---
History of Present Illness Chief complaint: I cant breathe History of present illness: 73 YO Female with HTN, CVA, CHF, CAD S/P CABG and Stent Placement, Atrial Fib on therapeutic anticoagulation, DM, OA, Pulmonary HTN presents to ED for evaluation. Pt states that she has experienced chest pain and shortness of breath over the past 2 days with worsening symptoms over the past 1 day. Pt states that pain is 7/10, substernal, nonradiating, associated with shortness of breath, not worsened with exertion or relieved with rest. Pt acknowledges decreased exercise tolerance, orthopnea, and PND. Pt denies fever, chills, CP, Palpitations, NVD, Syncope, Trauma, Prolonged immobility/travel, unilateral leg swelling, calf pain, productive cough, skin rash or recent ill contacts. Pt seen and evaluated in ED and found to have symptoms consistent with CHF Decompensation, as well as Acute Respiratory Failure. Pt admitted to telemetry. Cardiology consulted in ED. Past History Past Medical History: atrial fib, arthritis, CAD, diabetes, heart failure, hypertension, hyperlipidemia, stroke Past Surgical History: appendectomy, cholecystectomy, CABG, hernia repair, Other (stent placement, ) Social history: , lives with family. denies: smoking, alcohol abuse, prescription drug abuse Family history: CAD, diabetes, hypertension Medications and Allergies Allergies Allergy/AdvReac Type Severity Reaction Status Date / Time Penicillins Allergy Severe Swelling Verified 11/11/14 17:37 codeine AdvReac Nausea Verified 11/11/14 17:37 hydrocodone AdvReac Nausea Verified 11/11/14 17:37 Home Medications Medication Instructions Recorded Confirmed Last Taken Type Valsartan [Diovan] 160 mg PO QDAY 01/31/14 06/21/18 06/21/18 08:00 History Cetirizine HCl [ZyrTEC] 10 mg PO DAILY 11/11/14 06/21/18 06/21/18 08:00 History Tadalafil (Nf) [Adcirca (Nf)] 40 mg PO QDAY 11/11/14 06/21/18 06/21/18 08:00 History Sitagliptin Phos/Metformin HCl 1 tab PO BID 06/10/16 06/21/18 06/21/18 08:00 History [Janumet 50-1,000 mg] clonazePAM [KlonoPIN] 0.5 mg PO DAILY 09/15/16 06/21/18 06/21/18 08:00 History Dabigatran Etexilate Mesylate 150 mg PO BID 06/21/18 06/21/18 06/21/18 08:00 History [Pradaxa] Diltiazem HCl [Diltiazem 24Hr ER] 240 mg PO DAILY 06/21/18 06/21/18 06/21/18 08: 00 History Ferrous Sulfate [Feosol] 325 mg PO QDAY 06/21/18 06/21/18 06/21/18 08:00 History Furosemide [Lasix TAB] 40 mg PO QDAY 06/21/18 06/21/18 06/21/18 08:00 History Sertraline [Zoloft] 50 mg PO QDAY 06/21/18 06/21/18 06/21/18 08:00 History Zolpidem [Ambien] 5 mg PO QHS 06/21/18 06/21/18 06/20/18 21:00 History hydrALAZINE [Apresoline] 25 mg PO Q8HR 06/21/18 06/21/18 06/21/18 08:00 History Active Meds: Active Medications Nitroglycerin (Nitrostat) 0.4 mg SL .Q5MIN PRN PRN Reason: Chest Pain Review of Systems Constitutional: no weight loss, no weight gain, no fever, no chills Ears, nose, mouth and throat: no ear pain, no ear discharge, no tinnitis, no decreased hearing, no nose pain, no nasal congestion, no nasal discharge Cardiovascular: chest pain, orthopnea, shortness of breath, paroxysmal nocturnal dyspnea, decreased exercise tolerance, no syncope Respiratory: no cough, no cough with sputum, no excessive sputum, no hemoptysis Gastrointestinal: no nausea, no vomiting, no diarrhea, no constipation, no change in bowel habits Genitourinary Female: no pelvic pain, no flank pain, no menorrhagia, no dysuria , no urinary frequency, no urgency Rectal: no pain, no incontinence, no bleeding Musculoskeletal: no neck stiffness, no neck pain, no shooting arm pain, no arm numbness/tingling, no low back pain Integumentary: no rash, no pruritis, no redness, no sores, no wounds Neurological: no transient paralysis, no paralysis, no weakness, no parathesias , no numbness, no tingling, no seizures Psychiatric: no anxiety, no memory loss, no change in sleep habits, no sleep disturbances, no insomnia, no hypersomnia, no change in appetite Endocrine: no cold intolerance, no heat intolerance, no polyphagia, no excessive thirst, no polydipsia, no polyuria, no nocturia Hematologic/Lymphatic: no easy bruising, no easy bleeding, no lymphadenopathy, no lymphedema Allergic/Immunologic: no urticaria, no allergic rhinitis, no wheezing, no persistent infections, no anaphylaxis Exam - Constitutional Vitals: Temp Pulse Resp BP Pulse Ox 98.0 F 71 18 133/57 97 06/21/18 14:00 06/21/18 14:31 06/21/18 14:31 06/21/18 14:31 06/21/18 14:31 General appearance: Present: mild distress, obese - EENT Eyes: Present: PERRL ENT: hearing intact, clear oral mucosa - Neck Neck: Present: supple, normal ROM - Respiratory Respiratory effort: normal Respiratory: bilateral: diminished - Cardiovascular Rhythm: irregularly irregular Heart Sounds: Present: S1 & S2. Absent: rub, click - Extremities Extremities: pulses symmetrical, No edema Peripheral Pulses: within normal limits - Abdominal General gastrointestinal: Present: soft, non-tender, non-distended, normal bowel sounds Female genitourinary: Present: normal - Integumentary Integumentary: Present: clear, warm, dry - Musculoskeletal Musculoskeletal: gait normal, strength equal bilaterally - Psychiatric Psychiatric: appropriate mood/affect, intact judgment & insight - Neurologic Neurologic: CNII-XII intact, moves all extremities Results - Labs CBC & Chem 7: 06/21/18 16:06 06/21/18 16:06 Labs: Abnormal lab results 06/21/18 06/21/18 06/21/18 Range/Units 16:06 16:06 16:06 MCH 26 L (28-32) pg RDW 15.7 H (13.2-15.2) % Lymph # 1.0 L (1.2-5.4) K/mm3 Seg Neutrophils % 75.2 H (40.0-70.0) % PT 16.9 H (12.2-14.9) Sec. INR 1.30 H (0.87-1.13) APTT 50.1 H (24.2-36.6) Sec. Carbon Dioxide 21 L (22-30) mmol/L Glucose 105 H (65-100) mg/dL NT-Pro-B Natriuret Pep (0-900) pg/mL //18 Range/Units 16:06 MCH (28-32) pg RDW (13.2-15.2) % Lymph # (1.2-5.4) K/mm3 Seg Neutrophils % (40.0-70.0) % PT (12.2-14.9) Sec. INR (0.87-1.13) APTT (24.2-36.6) Sec. Carbon Dioxide (22-30) mmol/L Glucose (65-100) mg/dL NT-Pro-B Natriuret Pep 3303 H (0-900) pg/mL Assessment and Plan - Patient Problems (1) Respiratory failure Current Visit: Yes Status: Acute Qualifiers: Chronicity: acute Respiratory failure complication: hypoxia Qualified Code(s): J96.01 - Acute respiratory failure with hypoxia Plan to address problem: Supplemental oxygen, nebulizer therapy, Chest x ray, NIPPV as clinically indicated, supportive care, pulse oximetry (2) Diabetes Current Visit: Yes Status: Acute Plan to address problem: ADA diet, insulin, accu check (3) CHF (congestive heart failure) Current Visit: Yes Status: Chronic Qualifiers: Heart failure type: systolic Heart failure chronicity: acute Qualified Code(s): I50.21 - Acute systolic (congestive) heart failure Plan to address problem: Admit to telemetry, strict I/O, daily weight, monitor uop q shift, afterload reduction, echo, cardiology consulted in ED, (4) Pulmonary hypertension Current Visit: Yes Status: Chronic Plan to address problem: supplemental oxygen, resume prehospital medication. (5) Obesity (BMI 30.0-34.9) Current Visit: No Status: Acute Plan to address problem: balanced diet, increased physical activity at discharge. (6) Atrial fibrillation Current Visit: No Status: Chronic Qualifiers: Atrial fibrillation type: persistent Qualified Code(s): I48.1 - Persistent atrial fibrillation Plan to address problem: Therapeutic anticoagulation, admit to telemetry, supportive care. (7) DVT prophylaxis Current Visit: No Status: Acute Plan to address problem: scd to BLE while in bed.
[2018-06-21] MEDS ORDERED: D50W (25GM) Syringe IV PRN (17:40)
[2018-06-21] MEDS: LASIX IV SCH (18:39)
[2018-06-21] MEDS ORDERED: PROVENTIL IH PRN (19:19)
[2018-06-21] MEDS ORDERED: SODIUM CHLORIDE FLUSH SYRINGE 10 ML IV PRN (19:19)
[2018-06-21] MEDS ORDERED: TYLENOL PO PRN (19:19)
[2018-06-21] MEDS ORDERED: ZOFRAN IV PRN (19:19)
[2018-06-21 19:56] LABS: Free T4 (Free Thyroxine) 1.34 ng/dL (0.76-1.46)
[2018-06-21 21:18] LABS: Mucus,Urine FEW /HPF
[2018-06-21 21:19] LABS: Color,Urine Colorless (Yellow)
[2018-06-21 21:20] LABS: Bilirubin,Urine Negative (Negative); Blood,Urine Negative (Negative); Protein,Urine <15 mg/dL mg/dL (Negative); Urobilinogen,Urine < 2.0 mg/dL (<2.0); WBC,Urine < 1.0 /HPF (0.0-6.0)
[2018-06-21] MEDS: PRADAXA PO SCH (22:46)
[2018-06-21] MEDS: APRESOLINE PO SCH (22:48)
[2018-06-21] MEDS: AMBIEN PO SCH (22:48)
[2018-06-21] MEDS: HumaLOG SUB-Q SCH (22:48)
[2018-06-21] MEDS: SODIUM CHLORIDE FLUSH SYRINGE 10 ML IV SCH (22:48)
[2018-06-22] MEDS: APRESOLINE PO SCH ×3 (06:11→21:52)
[2018-06-22] MEDS: LASIX IV SCH ×3 (06:11→17:49)
[2018-06-22] MEDS: HumaLOG SUB-Q SCH ×4 (08:16→21:56)
[2018-06-22] MEDS: FEOSOL PO SCH (09:47)
[2018-06-22] MEDS: PRADAXA PO SCH ×2 (09:47→21:52)
[2018-06-22] MEDS: DIOVAN PO SCH (09:48)
[2018-06-22] MEDS: CLARITIN PO SCH (09:48)
[2018-06-22] MEDS: SODIUM CHLORIDE FLUSH SYRINGE 10 ML IV SCH ×2 (09:49→21:54)
[2018-06-22] MEDS: CARDIZEM CD PO SCH (09:49)
[2018-06-22] MEDS: ZOLOFT PO SCH (09:51)
[2018-06-22] MEDS ORDERED: NON-FORMULARY (Cetirizine Hcl [Zyrtec] 10 MG) PO SCH (10:00)
[2018-06-22] MEDS ORDERED: NON-FORMULARY (Tadalafil (Nf) 40 MG) PO SCH (10:00)
--- NOTE | 2018-06-22 11:36 | Consultation ---
History of Present Illness Consult date: 06/22/18 Requesting physician: CHADD CARDOZA Consult reason: congestive heart failure History of present illness: The patient is a 73 year old female who presented with complaints of substernal chest tightness and worsening shortness of breath over the past 3 days. She denies any palpitations, nausea, vomiting or diaphoresis. She reports compliance with all of her medications. Troponin negative x 1. BNP 3303. CXR consistent with vascular congestion. Past History Past Medical History: atrial fib, arthritis, CAD, diabetes, heart failure (HFpEF ), hypertension, hyperlipidemia, stroke, other (pulmonary HTN, MARY ELLEN) Past Surgical History: appendectomy, cholecystectomy, CABG, hysterectomy, hernia repair, Other (stent placement, knee surgery, ankle surgery) Social history: , lives with family. denies: smoking, alcohol abuse, prescription drug abuse Family history: CAD, diabetes, hypertension Medications and Allergies Allergies Allergy/AdvReac Type Severity Reaction Status Date / Time Penicillins Allergy Severe Swelling Verified 11/11/14 17:37 codeine AdvReac Nausea Verified 11/11/14 17:37 hydrocodone AdvReac Nausea Verified 11/11/14 17:37 Home Medications Medication Instructions Recorded Confirmed Last Taken Type Valsartan [Diovan] 160 mg PO QDAY 01/31/14 06/21/18 06/21/18 08:00 History Cetirizine HCl [ZyrTEC] 10 mg PO DAILY 11/11/14 06/21/18 06/21/18 08:00 History Tadalafil (Nf) [Adcirca (Nf)] 40 mg PO QDAY 11/11/14 06/21/18 06/21/18 08:00 History Sitagliptin Phos/Metformin HCl 1 tab PO BID 06/10/16 06/21/18 06/21/18 08:00 History [Janumet 50-1,000 mg] clonazePAM [KlonoPIN] 0.5 mg PO DAILY 09/15/16 06/21/18 06/21/18 08:00 History Dabigatran Etexilate Mesylate 150 mg PO BID 06/21/18 06/21/18 06/21/18 08:00 History [Pradaxa] Diltiazem HCl [Diltiazem 24Hr ER] 240 mg PO DAILY 06/21/18 06/21/18 06/21/18 08: 00 History Ferrous Sulfate [Feosol] 325 mg PO QDAY 06/21/18 06/21/18 06/21/18 08:00 History Furosemide [Lasix TAB] 40 mg PO QDAY 06/21/18 06/21/18 06/21/18 08:00 History Sertraline [Zoloft] 50 mg PO QDAY 06/21/18 06/21/18 06/21/18 08:00 History Zolpidem [Ambien] 5 mg PO QHS 06/21/18 06/21/18 06/20/18 21:00 History hydrALAZINE [Apresoline] 25 mg PO Q8HR 06/21/18 06/21/18 06/21/18 08:00 History Active Meds: Active Medications Acetaminophen (Tylenol) 650 mg PO Q4H PRN PRN Reason: Pain MILD(1-3)/Fever >100.5/PARISI Albuterol (Proventil) 2.5 mg IH Q4HRT PRN PRN Reason: Shortness Of Breath Clonazepam (Klonopin) 0.5 mg PO DAILY [facility] Last Admin: 06/22/18 09:49 Dose: 0.5 mg Dabigatran (Pradaxa) 150 mg PO BID [facility]; Protocol Last Admin: 06/22/18 09:47 Dose: 150 mg Dextrose (D50w (25gm) Syringe) 50 ml IV PRN PRN PRN Reason: Hypoglycemia Diltiazem HCl (Cardizem Cd) 240 mg PO DAILY [facility] Last Admin: 06/22/18 09:49 Dose: 240 mg Ferrous Sulfate (Feosol) 325 mg PO QDAY [facility] Last Admin: 06/22/18 09:47 Dose: 325 mg Furosemide (Lasix) 40 mg IV 0600,1800 [facility] Hydralazine HCl (Apresoline) 25 mg PO Q8HR [facility] Last Admin: 06/22/18 06:11 Dose: 25 mg Insulin Human Lispro (Humalog) 0 unit SUB-Q ACHS [facility]; Protocol Last Admin: 06/22/18 08:16 Dose: Not Given Loratadine (Claritin) 10 mg PO DAILY [facility] Last Admin: 06/22/18 09:48 Dose: 10 mg Miscellaneous Medication (Tadalafil (Nf)) 40 mg PO QDAY [facility] Nitroglycerin (Nitrostat) 0.4 mg SL .Q5MIN PRN PRN Reason: Chest Pain Ondansetron HCl (Zofran) 4 mg IV Q8H PRN PRN Reason: Nausea And Vomiting Sertraline HCl (Zoloft) 50 mg PO QDAY [facility] Last Admin: 06/22/18 09:51 Dose: 50 mg Sodium Chloride (Sodium Chloride Flush Syringe 10 Ml) 10 ml IV BID [facility] Last Admin: 06/22/18 09:49 Dose: 10 ml Sodium Chloride (Sodium Chloride Flush Syringe 10 Ml) 10 ml IV PRN PRN PRN Reason: LINE FLUSH Valsartan (Diovan) 160 mg PO QDAY [facility] Last Admin: 06/22/18 09:48 Dose: 160 mg Zolpidem Tartrate (Ambien) 5 mg PO QHS [facility] Last Admin: 06/21/18 22:48 Dose: 5 mg Review of Systems Constitutional: no fever, no chills Ears, nose, mouth and throat: no nasal congestion, no nasal discharge, no sinus pressure Cardiovascular: chest pain, orthopnea, shortness of breath, dyspnea on exertion Respiratory: shortness of breath, dyspnea on exertion, no cough, no congestion Gastrointestinal: no abdominal pain, no nausea, no vomiting, no diarrhea, no constipation Genitourinary Female: no dysuria, no urgency Musculoskeletal: no neck stiffness, no neck pain, no myalgias Integumentary: no rash, no pruritis Neurological: no parathesias, no numbness, no tingling, no headaches Endocrine: no cold intolerance, no heat intolerance Hematologic/Lymphatic: no easy bruising, no easy bleeding Allergic/Immunologic: no urticaria, no wheezing Physical Examination Vital Signs Temp Pulse Resp BP Pulse Ox 98.0 F 66 24 149/67 98 06/21/18 14:00 06/21/18 14:00 06/21/18 14:00 06/21/18 14:00 06/21/18 14:00 General appearance: no acute distress HEENT: Positive: Normocephaly, Mucus Membranes Moist Neck: Positive: neck supple, trachea midline Cardiac: Positive: Reg Rate and Rhythm, S1/S2 Lungs: Positive: clear to auscultation Neuro: Positive: Grossly Intact Abdomen: Positive: Soft, Active Bowel Sounds Skin: Positive: Clear. Negative: Rash Extremities: Present: normal. Absent: edema Results 06/21/18 16:06 06/21/18 16:06 Cardiac Enzymes 06/21/18 Range/Units 16:06 AST 21 (5-40) units/L Coagulation 06/21/18 Range/Units 16:06 PT 16.9 H (12.2-14.9) Sec. INR 1.30 H (0.87-1.13) APTT 50.1 H (24.2-36.6) Sec. CBC 06/21/18 Range/Units 16:06 WBC 5.8 (4.5-11.0) K/mm3 RBC 3.99 (3.65-5.03) M/mm3 Hgb 10.3 (10.1-14.3) gm/dl Hct 31.9 (30.3-42.9) % Plt Count 160 (140-440) K/mm3 Lymph # 1.0 L (1.2-5.4) K/mm3 [place] # 0.4 (0.0-0.8) K/mm3 Eos # 0.1 (0.0-0.4) K/mm3 Baso # 0.0 (0.0-0.1) K/mm3 Comprehensive Metabolic Panel 06/21/18 Range/Units 16:06 Sodium 139 (137-145) mmol/L Potassium 4.0 (3.6-5.0) mmol/L Chloride 104.7 (98-107) mmol/L Carbon Dioxide 21 L (22-30) mmol/L BUN 13 (7-17) mg/dL Creatinine 0.7 (0.7-1.2) mg/dL Glucose 105 H (65-100) mg/dL Calcium 10.2 (8.4-10.2) mg/dL AST 21 (5-40) units/L ALT 9 (7-56) units/L Alkaline Phosphatase 66 (35-129) units/L Total Protein 8.2 (6.3-8.2) g/dL Albumin 4.2 (3.9-5) g/dL - Imaging and Cardiology Echo: report reviewed (01/04/18: mild LVH, EF 55-60%, moderate MR, severe pulmonary HTN) EKG: image reviewed EKG interpretations - Telemetry EKG Rhythm: Atrial Fibrillation - EKG Supraventricular dysrhythmia: atrial fibrillation AV and intraventricular conduction: intraventricular conducti Assessment and Plan Increase diuretics. Add oral nitrates. Lexiscan stress MPI done in our office on 01/04/18 was negative for ischemia. The patient has been seen in conjunction with Dr. Robertson who agrees with the assessment and plan of care. - Patient Problems (1) Acute on chronic diastolic heart failure Current Visit: Yes Status: Acute (2) Chest pain Current Visit: Yes Status: Acute (3) Moderate to severe pulmonary hypertension Current Visit: Yes Status: Chronic (4) Permanent atrial fibrillation Current Visit: Yes Status: Chronic (5) CAD (coronary artery disease) Current Visit: No Status: Chronic Qualifiers: Coronary Disease-Associated Artery/Lesion type: unspecified vessel or lesion type [place] vs. transplanted heart: [place] heart Associated angina: angina presence unspecified Qualified Code(s): I25.10 - Atherosclerotic heart disease of [place] coronary artery without angina pectoris (6) History of PTCA Current Visit: No Status: Chronic (7) Hypertension Current Visit: No Status: Chronic Qualifiers: Hypertension type: essential hypertension Qualified Code(s): I10 - Essential (primary) hypertension (8) Diabetes Current Visit: No Status: Chronic (9) MARY ELLEN (obstructive sleep apnea) Current Visit: No Status: Chronic
[2018-06-22] MEDS: IMDUR PO SCH (13:30)
--- NOTE | 2018-06-22 15:38 | Progress Note ---
Assessment and Plan Assessment and plan: 73-year-old female with past medical history significant for diastolic CHF, pulmonary hypertension, A. fib, CAD, diabetes presented to the emergency department with shortness of breath. Acute respiratory failure - Oxygen support, nebulizer treatment Acute and chronic diastolic CHF Pulmonary hypertension Persistent atrial fibrillation Diabetes mellitus - Patient is on IV Lasix - Patient is on anticoagulation and rate control agents - Cardiology consult appreciate. patient showed marked improvement Disposition - Possible discharge tomorrow History Interval history: Patient was seen and evaluated at the bedside, patient's shortness of breath is getting better, chest pain subsided. Hospitalist Physical - Physical exam Narrative exam: Not in cardiopulmonary distress. The patient appeared well nourished and normally developed. Vital signs as documented. Head exam is unremarkable. No scleral icterus . Neck is without jugular venous distension, thyromegaly, or carotid bruits. Lungs are clear to auscultation. Cardiac exam reveals irregular rate and Rhythm. Abdominal exam reveals normal bowel sounds. Extremities are nonedematous and both femoral and pedal pulses are normal. SPORTS MEDICINE SPECIALIST: Alert and oriented 3. No focal weakness. - Constitutional Vitals: Temp Pulse Resp BP Pulse Ox 97.9 F 64 20 160/74 98 06/22/18 11:45 06/22/18 13:30 06/22/18 11:45 06/22/18 13:30 06/22/18 11:45 General appearance: Present: no acute distress Results - Labs CBC & Chem 7: 06/21/18 16:06 06/21/18 16:06 Labs: Laboratory Last Values WBC 5.8 K/mm3 (4.5-11.0) 06/21/18 16:06 RBC 3.99 M/mm3 (3.65-5.03) 06/21/18 16:06 Hgb 10.3 gm/dl (10.1-14.3) 06/21/18 16:06 Hct 31.9 % (30.3-42.9) 06/21/18 16:06 MCV 80 fl (79-97) 06/21/18 16:06 MCH 26 pg (28-32) L 06/21/18 16:06 MCHC 32 % (30-34) 06/21/18 16:06 RDW 15.7 % (13.2-15.2) H 06/21/18 16:06 Plt Count 160 K/mm3 (140-440) 06/21/18 16:06 Lymph % (Auto) 16.5 % (13.4-35.0) 06/21/18 16:06 [place] % (Auto) 6.9 % (0.0-7.3) 06/21/18 16:06 Eos % (Auto) 1.0 % (0.0-4.3) 06/21/18 16:06 Baso % (Auto) 0.4 % (0.0-1.8) 06/21/18 16:06 Lymph # 1.0 K/mm3 (1.2-5.4) L 06/21/18 16:06 [place] # 0.4 K/mm3 (0.0-0.8) 06/21/18 16:06 Eos # 0.1 K/mm3 (0.0-0.4) 06/21/18 16:06 Baso # 0.0 K/mm3 (0.0-0.1) 06/21/18 16:06 Seg Neutrophils % 75.2 % (40.0-70.0) H 06/21/18 16:06 Seg Neutrophils # 4.3 K/mm3 (1.8-7.7) 06/21/18 16:06 PT 16.9 Sec. (12.2-14.9) H 06/21/18 16:06 INR 1.30 (0.87-1.13) H 06/21/18 16:06 APTT 50.1 Sec. (24.2-36.6) H 06/21/18 16:06 D-Dimer 256.86 ng/mlDDU (0-234) H 06/21/18 19:20 Sodium 139 mmol/L (137-145) 06/21/18 16:06 Potassium 4.0 mmol/L (3.6-5.0) 06/21/18 16:06 Chloride 104.7 mmol/L (98-107) 06/21/18 16:06 Carbon Dioxide 21 mmol/L (22-30) L 06/21/18 16:06 Anion Gap 17 mmol/L 06/21/18 16:06 BUN 13 mg/dL (7-17) 06/21/18 16:06 Creatinine 0.7 mg/dL (0.7-1.2) 06/21/18 16:06 Estimated GFR > 60 ml/min 06/21/18 16:06 BUN/Creatinine Ratio 19 % 06/21/18 16:06 Glucose 105 mg/dL (65-100) H 06/21/18 16:06 POC Glucose 161 (70-105) H 06/22/18 10:53 Calcium 10.2 mg/dL (8.4-10.2) 06/21/18 16:06 Magnesium 1.90 mg/dL (1.7-2.3) 06/21/18 16:06 Total Bilirubin 0.50 mg/dL (0.1-1.2) 06/21/18 16:06 AST 21 units/L (5-40) 06/21/18 16:06 ALT 9 units/L (7-56) 06/21/18 16:06 Alkaline Phosphatase 66 units/L (35-129) 06/21/18 16:06 Total Creatine Kinase 39 units/L (30-135) 06/21/18 16:06 Troponin T < 0.010 ng/mL (0.00-0.029) 06/21/18 16:06 NT-Pro-B Natriuret Pep 3303 pg/mL (0-900) H 06/21/18 16:06 Total Protein 8.2 g/dL (6.3-8.2) 06/21/18 16:06 Albumin 4.2 g/dL (3.9-5) 06/21/18 16:06 Albumin/Globulin Ratio 1.1 % 06/21/18 16:06 TSH 1.500 mlU/mL (0.270-4.200) 06/21/18 19:20 Free T4 1.34 ng/dL (0.76-1.46) 06/21/18 19:20 Urine Color Colorless (Yellow) 06/21/18 21:09 Urine Turbidity Clear (Clear) 06/21/18 21:09 Urine pH 5.0 (5.0-7.0) 06/21/18 21:09 Ur Specific [place] 1.005 (1.003-1.030) 06/21/18 21:09 Urine Protein <15 mg/dl mg/dL (Negative) 06/21/18 21:09 Urine Glucose (UA) Negative mg/dL (Negative) 06/21/18 21:09 Urine Ketones Negative mg/dL (Negative) 06/21/18 21:09 Urine Blood Negative (Negative) 06/21/18 21:09 Urine Nitrite Negative (Negative) 06/21/18 21:09 Ur Reducing Substances Not Reportable 06/21/18 21:09 Urine Bilirubin Negative (Negative) 06/21/18 21:09 Urine Ictotest Not Reportable 06/21/18 21:09 Urine Urobilinogen < 2.0 mg/dL (<2.0) 06/21/18 21:09 Ur Leukocyte Esterase Negative (Negative) 06/21/18 21:09 Urine WBC (Auto) < 1.0 /HPF (0.0-6.0) 06/21/18 21:09 Urine RBC (Auto) 2.0 /HPF (0.0-6.0) 06/21/18 21:09 U Epithel Cells (Auto) < 1.0 /HPF (0-13.0) 06/21/18 21:09 Urine Mucus Few /HPF 06/21/18 21:09
[2018-06-22] MEDS: AMBIEN PO SCH (21:52)
[2018-06-23] MEDS: APRESOLINE PO SCH (05:34)
[2018-06-23] MEDS: LASIX IV SCH (05:34)
[2018-06-23 06:44] LABS: Calcium 9.4 mg/dL (8.4-10.2)
[2018-06-23] MEDS: HumaLOG SUB-Q SCH (07:30)
[2018-06-23] MEDS: FEOSOL PO SCH (10:07)
[2018-06-23] MEDS: ZOLOFT PO SCH (10:08)
[2018-06-23] MEDS: CLARITIN PO SCH (10:08)
[2018-06-23] MEDS: PRADAXA PO SCH (10:08)
[2018-06-23] MEDS: CARDIZEM CD PO SCH (10:09)
[2018-06-23] MEDS: IMDUR PO SCH (10:09)
[2018-06-23] MEDS: DIOVAN PO SCH (10:10)
[2018-06-23] MEDS: SODIUM CHLORIDE FLUSH SYRINGE 10 ML IV SCH (10:10)
[2018-06-23 10:11] VITALS: BP 150/78
--- NOTE | 2018-06-23 11:00 | Discharge Summary ---
Providers - Providers Date of Admission: 06/21/18 19:19 Attending physician: FLACO WILLSON MD 06/21/18 15:01 Consult to Physician [CONS] Urgent Comment: DR Joce HAWTHORNE NOTIFIED Consulting Provider: ERASMO HAWTHORNE Physician Instructions: Reason For Exam: cp dyspnea Primary care physician: [employer] Hospitalization Reason for admission: CHF exacerbation Condition: Stable Disposition: DC/[place]-06 HOME UNDER HOME HL[facility] Time spent for discharge: 32 minutes - Discharge Diagnoses (1) Acute on chronic diastolic heart failure Status: Acute (2) Respiratory failure Status: Acute Qualifiers: Chronicity: acute Respiratory failure complication: hypoxia Qualified Code(s): J96.01 - Acute respiratory failure with hypoxia (3) Moderate to severe pulmonary hypertension Status: Chronic (4) Permanent atrial fibrillation Status: Chronic Core Measure Documentation - Palliative Care Palliative Care/ Comfort Measures: Not Applicable - Core Measures Any of the following diagnoses?: heart failure - Heart Failure Discharge Requirements LAURIE/ARB for LVSD if EF <40%: Not Applicable Beta nick at discharge: Yes Exam - Physical Exam Narrative exam: Not in cardiopulmonary distress. The patient appeared well nourished and normally developed. Vital signs as documented. Head exam is unremarkable. No scleral icterus . Neck is without jugular venous distension, thyromegaly, or carotid bruits. Lungs are clear to auscultation. Cardiac exam reveals irregular rate and Rhythm. Abdominal exam reveals normal bowel sounds. Extremities are nonedematous and both femoral and pedal pulses are normal. GLAZIER HELPER: Alert and oriented 3. No focal weakness. - Constitutional Vitals: Temp Pulse Resp BP Pulse Ox 97.9 F 68 18 150/78 95 06/23/18 07:35 06/23/18 10:10 06/23/18 07:35 06/23/18 10:10 06/23/18 07:35 Plan Activity: no restrictions Weight Bearing Status: Full Weight Bearing Diet: low cholesterol, low salt Follow up with: CYNDI YANEZ MD [Primary Care Provider] - 3-5 Days ERASMO HAWTHORNE MD [Staff Physician] - 7 Days Prescriptions: ISOSORBIDE MONOnitrate [Imdur ER] 30 mg PO QDAY #30 tablet
--- NOTE | 2018-06-23 11:38 | Progress Note ---
Assessment and Plan Stable cardiac status. Patient may be discharged from a cardiac standpoint. Follow up appointment with Helen Kuhn NP in the [place] office on 07/04/18 at 1:30 pm. The patient has been seen in conjunction with Dr. Robertson who agrees with the assessment and plan of care. - Patient Problems (1) Acute on chronic diastolic heart failure Current Visit: Yes Status: Acute (2) Chest pain Current Visit: Yes Status: Acute (3) Moderate to severe pulmonary hypertension Current Visit: Yes Status: Chronic (4) Permanent atrial fibrillation Current Visit: Yes Status: Chronic (5) CAD (coronary artery disease) Current Visit: No Status: Chronic Qualifiers: Coronary Disease-Associated Artery/Lesion type: unspecified vessel or lesion type [place] vs. transplanted heart: [place] heart Associated angina: angina presence unspecified Qualified Code(s): I25.10 - Atherosclerotic heart disease of [place] coronary artery without angina pectoris (6) History of PTCA Current Visit: No Status: Chronic (7) Hypertension Current Visit: No Status: Chronic Qualifiers: Hypertension type: essential hypertension Qualified Code(s): I10 - Essential (primary) hypertension (8) Diabetes Current Visit: No Status: Chronic (9) MARY ELLEN (obstructive sleep apnea) Current Visit: No Status: Chronic Subjective Date of service: 06/23/18 Principal diagnosis: acute on chronic HFpEF Interval history: The patient is resting in bed. Feels much better. Shortness of breath improved. Atrial fibrillation with HR 70s on the monitor. Objective Last Vital Signs Temp 97.9 F 06/23/18 07:35 Pulse 68 06/23/18 10:10 Resp 18 06/23/18 07:35 BP 150/78 06/23/18 10:10 Pulse Ox 95 06/23/18 07:35 - Physical Examination General: No Apparent Distress HEENT: Positive: Normocephaly, Mucus Membranes Moist Neck: Positive: neck supple, trachea midline Cardiac: Positive: irregularly irregular, S1/S2 Lungs: Positive: clear to auscultation Neuro: Positive: Grossly Intact Abdomen: Positive: Soft, Active Bowel Sounds Skin: Positive: Clear. Negative: Rash Extremities: Present: normal. Absent: edema - Labs and Meds Comprehensive Metabolic Panel 06/23/18 Range/Units 05:29 Sodium 138 (137-145) mmol/L Potassium 3.8 (3.6-5.0) mmol/L Chloride 99.4 (98-107) mmol/L Carbon Dioxide 23 (22-30) mmol/L BUN 21 H (7-17) mg/dL Creatinine 1.0 (0.7-1.2) mg/dL Glucose 127 H (65-100) mg/dL Calcium 9.4 (8.4-10.2) mg/dL - Imaging and Cardiology EKG: image reviewed Echo: report reviewed (01/04/18: mild LVH, EF 55-60%, moderate MR, severe pulmonary HTN) - Telemetry EKG Rhythm: Atrial Fibrillation AV and intraventricular conduction: intraventricular conducti
== END 2018-06-23 15:15 | disposition home health service (06) | DRG 291 ==
LOC: ED 13:59 → 4A 19:19
PROVIDERS: ADMIT Internal Medicine; ATTEND Internal Medicine
DX: I11.0 Hypertensive heart disease with heart failure (principal); J96.01 Acute respiratory failure with hypoxia; I50.43 Acute on chronic combined systolic (congestive) and diastolic (congestive) heart failure; I27.20 Pulmonary hypertension, unspecified; I48.2 Chronic atrial fibrillation; I25.10 Atherosclerotic heart disease of native coronary artery without angina pectoris; E11.9 Type 2 diabetes mellitus without complications; E78.5 Hyperlipidemia, unspecified; G47.33 Obstructive sleep apnea (adult) (pediatric); M19.90 Unspecified osteoarthritis, unspecified site; Z86.73 Personal history of transient ischemic attack (TIA), and cerebral infarction without residual deficits; Z90.49 Acquired absence of other specified parts of digestive tract; Z95.1 Presence of aortocoronary bypass graft; Z90.710 Acquired absence of both cervix and uterus; Z82.49 Family history of ischemic heart disease and other diseases of the circulatory system; Z83.3 Family history of diabetes mellitus; Z88.5 Allergy status to narcotic agent; Z88.0 Allergy status to penicillin; Z79.899 Other long term (current) drug therapy; Z95.5 Presence of coronary angioplasty implant and graft; Z79.01 Long term (current) use of anticoagulants; Z87.442 Personal history of urinary calculi; Z79.84 Long term (current) use of oral hypoglycemic drugs
CPT/HCPCS: 36415; 71045; 80048; 80053; 81001; 82550; 82962; 83735; 83880; 84439; 84443; 84484; 85025; 85379; 85610; 85730; 93005; 93010; 94760; J1940

== ENCOUNTER 2019-03-23 15:11 | Inpatient (IN) | payer OTHER, MEDICARE ==
[2019-03-23 16:16] LABS: Basophils % (Auto) 0.7 % (0.0-1.8); Eosinophils # (Auto) 0.1 K/mm3 (0.0-0.4); Eosinophils % (Auto) 1.5 % (0.0-4.3); Hematocrit 28.4 % (30.3-42.9); Hemoglobin 9.5 gm/dl (10.1-14.3); Lymphocytes # (Auto) 1.4 K/mm3 (1.2-5.4); Lymphocytes % (Auto) 33.1 % (13.4-35.0); Mean Corpuscular HGB Conc 34 % (30-34); Mean Corpuscular Volume 83 fl (79-97); Monocytes # (Auto) 0.3 K/mm3 (0.0-0.8); Monocytes % (Auto) 7.3 % (0.0-7.3); Platelet Count 136 K/mm3 (140-440); Red Blood Count 3.41 M/mm3 (3.65-5.03); Red Cell Distribution Width 16.3 % (13.2-15.2)
[2019-03-23] MEDS ORDERED: DILAUDID IV ONE (16:25)
[2019-03-23] MEDS ORDERED: SOLU-Medrol IV ONE (16:26)
--- NOTE | 2019-03-23 16:26 | Emergency Department Report ---
ED Shortness of Breath HPI - General Chief Complaint: Dyspnea/Respdistress Stated Complaint: SOB Time Seen by Provider: 03/23/19 16:10 Source: patient Mode of arrival: Ambulatory Limitations: No Limitations - History of Present Illness Initial Comments: Patient is a 73-year-old female that presents to emergency room with complaints of shortness of breath 2 weeks. Patient states her shortness of breath is worsening. Patient states she has not received any medical care for this. Patient states she is having cough. Patient states her cough is dry and nonproductive. Patient states she is also having chest pain in the center of her chest. Patient states her chest pain is mild and is a 2 out of 10. Patient states she the chest pain as an aching or pressure. Patient states the chest pain is not radiating. Chest pain is better with rest and worse with exertion. MD Complaint: shortness of breath, cough, chest pain -: week(s) (2) Severity: severe Pain Scale: 2 Quality: dull, aching Consistency: constant Improves With: rest, upright position, medication Worsens With: lying flat, exertion, coughing Known History Of: congestive heart failure Context: recent URI Associated Symptoms: chest pain, cough Treatments Prior to Arrival: none - Related Data Home Oxygen Therapy: No Home Medications Medication Instructions Recorded Confirmed Last Taken Valsartan [Diovan] 160 mg PO QDAY 01/31/14 06/21/18 06/21/18 08:00 Cetirizine HCl [ZyrTEC 10mg cap] 10 mg PO DAILY 11/11/14 06/21/18 06/21/18 08:00 Tadalafil (Nf) [Adcirca (Nf)] 40 mg PO QDAY 11/11/14 06/21/18 06/21/18 08:00 Sitagliptin Phos/Metformin HCl 1 tab PO BID 06/10/16 06/21/18 06/21/18 08:00 [Janumet 50-1,000 mg] clonazePAM [KlonoPIN] 0.5 mg PO DAILY 09/15/16 06/21/18 06/21/18 08:00 Dabigatran Etexilate Mesylate 150 mg PO BID 06/21/18 06/21/18 06/21/18 08:00 [Pradaxa] Diltiazem HCl [Diltiazem 24Hr ER] 240 mg PO DAILY 06/21/18 06/21/18 06/21/18 08:00 Ferrous Sulfate [Feosol 325 MG tab] 325 mg PO QDAY 06/21/18 06/21/18 06/21/18 08:00 Furosemide [Lasix TAB] 40 mg PO QDAY 06/21/18 06/21/18 06/21/18 08:00 Sertraline [Zoloft] 50 mg PO QDAY 06/21/18 06/21/18 06/21/18 08:00 Zolpidem [Ambien] 5 mg PO QHS 06/21/18 06/21/18 06/20/18 21:00 hydrALAZINE [Apresoline TAB] 25 mg PO Q8HR 06/21/18 06/21/18 06/21/18 08:00 Previous Rx's Medication Instructions Recorded Last Taken Type ISOSORBIDE MONOnitrate [Imdur ER] 30 mg PO QDAY #30 tablet 06/23/18 Unknown Rx Allergies Allergy/AdvReac Type Severity Reaction Status Date / Time Penicillins Allergy Severe Swelling Verified 11/11/14 17:37 codeine AdvReac Nausea Verified 11/11/14 17:37 hydrocodone AdvReac Nausea Verified 11/11/14 17:37 ED Review of Systems ROS: Stated complaint: SOB Other details as noted in HPI Constitutional: denies: chills, fever Eyes: denies: eye pain, eye discharge, vision change ENT: denies: ear pain, throat pain Respiratory: cough, shortness of breath, SOB with exertion, SOB at rest, wheezing Cardiovascular: chest pain, dyspnea on exertion. denies: palpitations Endocrine: no symptoms reported Gastrointestinal: denies: abdominal pain, nausea, diarrhea Genitourinary: denies: urgency, dysuria, discharge Musculoskeletal: denies: back pain, joint swelling, arthralgia Skin: denies: rash, lesions Neurological: denies: headache, weakness, paresthesias Psychiatric: denies: anxiety, depression Hematological/Lymphatic: denies: easy bleeding, easy bruising ED Past Medical Hx - Past Medical History Previous Medical History?: Yes Hx Hypertension: Yes Hx CVA: Yes Hx Congestive Heart Failure: Yes Hx Diabetes: Yes Hx Arthritis: Yes Hx Kidney Stones: Yes Additional medical history: A-fib, sleep apnea, CAD, hyperlipidemia - Surgical History Past Surgical History?: Yes Hx Coronary Stent: Yes Hx Open Heart Surgery: Yes Hx Cholecystectomy: Yes Hx Appendectomy: Yes Additional Surgical History: heart stent x 4; knee and ankle; hernia repair x 2 - Family History Family history: no significant - Social History Smoking Status: Never Smoker Substance Use Type: None - Medications Home Medications: Home Medications Medication Instructions Recorded Confirmed Last Taken Type Valsartan [Diovan] 160 mg PO QDAY 01/31/14 06/21/18 06/21/18 08:00 History Cetirizine HCl [ZyrTEC 10mg cap] 10 mg PO DAILY 11/11/14 06/21/18 06/21/18 08:00 History Tadalafil (Nf) [Adcirca (Nf)] 40 mg PO QDAY 11/11/14 06/21/18 06/21/18 08:00 History Sitagliptin Phos/Metformin HCl 1 tab PO BID 06/10/16 06/21/18 06/21/18 08:00 History [Janumet 50-1,000 mg] clonazePAM [KlonoPIN] 0.5 mg PO DAILY 09/15/16 06/21/18 06/21/18 08:00 History Dabigatran Etexilate Mesylate 150 mg PO BID 06/21/18 06/21/18 06/21/18 08:00 History [Pradaxa] Diltiazem HCl [Diltiazem 24Hr ER] 240 mg PO DAILY 06/21/18 06/21/18 06/21/18 08:00 History Ferrous Sulfate [Feosol 325 MG tab] 325 mg PO QDAY 06/21/18 06/21/18 06/21/18 08:00 History Furosemide [Lasix TAB] 40 mg PO QDAY 06/21/18 06/21/18 06/21/18 08:00 History Sertraline [Zoloft] 50 mg PO QDAY 06/21/18 06/21/18 06/21/18 08:00 History Zolpidem [Ambien] 5 mg PO QHS 06/21/18 06/21/18 06/20/18 21:00 History hydrALAZINE [Apresoline TAB] 25 mg PO Q8HR 06/21/18 06/21/18 06/21/18 08:00 History ISOSORBIDE MONOnitrate [Imdur ER] 30 mg PO QDAY #30 tablet 06/23/18 Unknown Rx ED Physical Exam - General Limitations: No Limitations General appearance: alert, in distress - Head Head exam: Present: atraumatic, normocephalic - Eye Eye exam: Present: normal appearance - ENT ENT exam: Present: mucous membranes moist - Neck Neck exam: Present: normal inspection - Respiratory Respiratory exam: Present: respiratory distress, wheezes, accessory muscle use, decreased breath sounds. Absent: rales, rhonchi - Cardiovascular Cardiovascular Exam: Present: regular rate, normal rhythm. Absent: systolic murmur, diastolic murmur, rubs, gallop - GI/Abdominal GI/Abdominal exam: Present: soft, normal bowel sounds. Absent: distended, tenderness, guarding - Rectal Rectal exam: Present: deferred - Extremities Exam Extremities exam: Present: normal inspection - Back Exam Back exam: Present: normal inspection - Neurological Exam Neurological exam: Present: alert, oriented X3 - Psychiatric Psychiatric exam: Present: normal affect, normal mood - Skin Skin exam: Present: warm, dry, intact, normal color. Absent: rash ED Course Vital Signs 03/23/19 17:06 Pulse Rate [ 59 L Anterior Bilateral Throughout] Respiratory 20 Rate [Anterior Bilateral Throughout] - Reevaluation(s) Reevaluation #1: Patient's lungs are are better but patient still had wheezing and rales Discussed all results with patient. Patient will be admitted to the hospitalist service. Patient agrees to plan of care. 03/23/19 17:58 - Consultations Consultation #1: Hospitalist consultation for admission. Hospitalist to admit patient. Hospitalist to assume care patient. 03/23/19 17:59 ED Medical Decision Making - Lab Data Result diagrams: 03/23/19 15:56 03/23/19 15:56 - EKG Data -: EKG Interpreted by Me EKG shows normal: axis, intervals, ST-T waves Rate: normal - EKG Data Interpretation: other (A. fib with left bundle-branch block.) - Radiology Data Radiology results: image reviewed - Medical Decision Making Patient is a 73-year-old female that presents to emergency room with complaints of shortness of breath 2 weeks. Patient found to have wheezing and rales. Patient given breathing treatment as well as mag and slightly Medrol. Wheezing is improved. Patient still hypoxic. Patient's respiratory distress has improved. Patient's labs unremarkable except for anemia and elevated BNP. Patient given Lasix IV. - Differential Diagnosis chf, sob, cp, wheeze. resp distress Critical Care Time: Yes Critical care attestation.: If time is entered above; I have spent that time in minutes in the direct care of this critically ill patient, excluding procedure time. Critical Care Time: 35 minutes ED Disposition Clinical Impression: SOB (shortness of breath), Wheeze, Respiratory distress, Hypoxia Chest pain Qualifiers: Chest pain type: unspecified Qualified Code(s): R07.9 - Chest pain, unspecified CHF (congestive heart failure) Qualifiers: Heart failure type: unspecified Heart failure chronicity: acute on chronic Qualified Code(s): I50.9 - Heart failure, unspecified Anemia Qualifiers: Anemia type: unspecified type Qualified Code(s): D64.9 - Anemia, unspecified Disposition: DC-09 OP ADMIT IP TO THIS HOSP Is pt being admited?: Yes Does the pt Need Aspirin: No Condition: Critical Instructions: Chest Pain (ED) Time of Disposition: 17:58
[2019-03-23] MEDS ORDERED: MAGNESIUM SULFATE 2GM/50ML 2 GM/50 ML BAG IV ONE ×2 (16:27→16:29)
[2019-03-23] MEDS ORDERED: DUONEB *Not for PRN Use IH ONE (16:27)
[2019-03-23 16:29] LABS: BUN/Creatinine Ratio 17; Blood Urea Nitrogen 17 mg/dL (7-17); Calcium 9.2 mg/dL (8.4-10.2); Hemolysis Index 0
[2019-03-23] MEDS ORDERED: SOLU-Medrol ONE (16:29)
[2019-03-23] MEDS ORDERED: DILAUDID ONE (16:29)
--- NOTE | 2019-03-23 17:02 | XRay Report ---
PROCEDURE: Chest. TECHNIQUE: Portable AP view. HISTORY: Chest pain. COMPARISONS: Chest 01/13/2018. Dictation not available. FINDINGS: The heart size is enlarged. There is calcification in the thoracic aorta. The lungs are clear and wel l expanded. There are no pleural effusions. The soft tissues and regional skeleton are unremarkable. IMPRESSION: Cardiomegaly. This document is electronically signed by Jean Carlos Agosto MD., Mar 23 2019 05:00:40 PM ET
[2019-03-23 17:17] LABS: Creatine Kinase MB 1.9 ng/mL (0.0-4.0)
[2019-03-23] MEDS ORDERED: LASIX IV ONE (18:03)
--- NOTE | 2019-03-23 18:13 | History and Physical Report ---
History of Present Illness Chief complaint: My chest hurts, and I cant breathe History of present illness: 73 YO Female with HTN, CVA, CHF, CAD S/P CABG and Stent Placement, Atrial Fib on therapeutic anticoagulation, DM, OA, Pulmonary HTN presents to ED for evaluation. Pt states that she has experienced pain in her chest and shortness of breath over the past 2 weeks with worsening symptoms over the past 3 days. Pt acknowledges decreased exercise tolerance, leg swelling, shortness of breath, and pain in her chest. Pt states that her pain is 2/10, substernal, constant, dull, nonradiating, associated with shortness of breath, worsened with exertion, relieved with rest. Pt acknowledges decreased exercise tolerance, Orthopnea/PND, Leg swelling. Pt denies fever, chills, Palpitations, NVD, Syncope, Trauma, Prolonged immobility/travel, unilateral leg swelling, calf pain, productive cough, skin rash or recent ill contacts. Pt seen and evaluated in ED and found to have symptoms consistent with CHF Decompensation, as well as Angina. Pt admitted to telemetry. Cardiology consulted in ED. Prior admission on 06/21/18 reviewed. All listed medication reconciled at time of admission. Past History Past Medical History: atrial fib, arthritis, CAD, diabetes, heart failure, strok e, other (Pulmonary Hypertension,) Past Surgical History: appendectomy, cholecystectomy, CABG, hernia repair, total knee replacement, Other (Ankle surgery) Social history: . denies: smoking, alcohol abuse, prescription drug abuse Family history: CAD, diabetes, hypertension Medications and Allergies Allergies Allergy/AdvReac Type Severity Reaction Status Date / Time Penicillins Allergy Severe Swelling Verified 11/11/14 17:37 codeine AdvReac Nausea Verified 11/11/14 17:37 hydrocodone AdvReac Nausea Verified 11/11/14 17:37 Home Medications Medication Instructions Recorded Confirmed Last Taken Type Valsartan [Diovan] 160 mg PO QDAY 01/31/14 06/21/18 06/21/18 08:00 History Cetirizine HCl [ZyrTEC 10mg cap] 10 mg PO DAILY 11/11/14 06/21/18 06/21/18 08:00 History Tadalafil (Nf) [Adcirca (Nf)] 40 mg PO QDAY 11/11/14 06/21/18 06/21/18 08:00 History Sitagliptin Phos/Metformin HCl 1 tab PO BID 06/10/16 06/21/18 06/21/18 08:00 History [Janumet 50-1,000 mg] clonazePAM [KlonoPIN] 0.5 mg PO DAILY 09/15/16 06/21/18 06/21/18 08:00 History Dabigatran Etexilate Mesylate 150 mg PO BID 06/21/18 06/21/18 06/21/18 08:00 History [Pradaxa] Diltiazem HCl [Diltiazem 24Hr ER] 240 mg PO DAILY 06/21/18 06/21/18 06/21/18 08:00 History Ferrous Sulfate [Feosol 325 MG tab] 325 mg PO QDAY 06/21/18 06/21/18 06/21/18 08:00 History Furosemide [Lasix TAB] 40 mg PO QDAY 06/21/18 06/21/18 06/21/18 08:00 History Sertraline [Zoloft] 50 mg PO QDAY 06/21/18 06/21/18 06/21/18 08:00 History Zolpidem [Ambien] 5 mg PO QHS 06/21/18 06/21/18 06/20/18 21:00 History hydrALAZINE [Apresoline TAB] 25 mg PO Q8HR 06/21/18 06/21/18 06/21/18 08:00 History ISOSORBIDE MONOnitrate [Imdur ER] 30 mg PO QDAY #30 tablet 06/23/18 Unknown Rx Review of Systems Constitutional: no weight loss, no weight gain, no fever, no chills Ears, nose, mouth and throat: no ear pain, no ear discharge, no tinnitis, no decreased hearing, no nose pain Breasts: no change in shape, no swelling, no mass Cardiovascular: chest pain, orthopnea, shortness of breath, dyspnea on exertion, paroxysmal nocturnal dyspnea, decreased exercise tolerance, no palpitations, no rapid/irregular heart beat Respiratory: cough, no cough with sputum, no excessive sputum, no hemoptysis Gastrointestinal: no nausea, no vomiting, no diarrhea, no constipation Genitourinary Female: no pelvic pain, no flank pain, no menorrhagia, no dysuria, no urinary frequency, no urgency Rectal: no pain, no incontinence, no bleeding Musculoskeletal: no neck stiffness, no neck pain, no shooting arm pain, no arm numbness/tingling, no low back pain, no shooting leg pain Integumentary: no rash, no pruritis, no redness, no sores, no wounds Neurological: no paralysis, no weakness, no parathesias, no numbness, no tingling, no seizures Psychiatric: no anxiety, no memory loss, no change in sleep habits, no sleep disturbances, no insomnia, no hypersomnia, no change in appetite Endocrine: no cold intolerance, no heat intolerance, no polyphagia, no excessive thirst, no polydipsia, no polyuria, no nocturia Hematologic/Lymphatic: no easy bruising, no easy bleeding, no lymphadenopathy, no lymphedema Allergic/Immunologic: no urticaria, no allergic rhinitis, no wheezing, no persistent infections, no anaphylaxis, no angioedema Exam - Constitutional Vitals: Temp Pulse Resp BP Pulse Ox 59 L 20 03/23/19 17:06 03/23/19 17:06 General appearance: Present: mild distress - EENT Eyes: Present: PERRL ENT: hearing intact, clear oral mucosa - Neck Neck: Present: supple, normal ROM - Respiratory Respiratory effort: labored Respiratory: bilateral: diminished, rhonchi - Cardiovascular Heart Sounds: Present: S1 & S2. Absent: rub, click - Extremities Extremities: pulses symmetrical Extremity abnormal: edema Peripheral Pulses: within normal limits - Abdominal General gastrointestinal: Present: soft, non-tender, non-distended, normal bowel sounds Female genitourinary: Present: normal - Integumentary Integumentary: Present: clear, warm, dry - Musculoskeletal Musculoskeletal: gait normal, strength equal bilaterally - Psychiatric Psychiatric: appropriate mood/affect, intact judgment & insight, memory intact - Neurologic Neurologic: CNII-XII intact, moves all extremities Results - Labs CBC & Chem 7: 03/23/19 15:56 03/23/19 15:56 Labs: Abnormal lab results 03/23/19 03/23/19 03/23/19 Range/Units 15:56 15:56 15:56 WBC 4.1 L (4.5-11.0) K/mm3 RBC 3.41 L (3.65-5.03) M/mm3 Hgb 9.5 L (10.1-14.3) gm/dl Hct 28.4 L (30.3-42.9) % RDW 16.3 H (13.2-15.2) % Plt Count 136 L (140-440) K/mm3 VBG pH (7.320-7.420) Glucose 109 H (65-100) mg/dL NT-Pro-B Natriuret Pep 2586 H (0-900) pg/mL 03/23/19 Range/Units 16:39 WBC (4.5-11.0) K/mm3 RBC (3.65-5.03) M/mm3 Hgb (10.1-14.3) gm/dl Hct (30.3-42.9) % RDW (13.2-15.2) % Plt Count (140-440) K/mm3 VBG pH 7.441 H (7.320-7.420) Glucose (65-100) mg/dL NT-Pro-B Natriuret Pep (0-900) pg/mL Assessment and Plan - Patient Problems (1) CHF (congestive heart failure) Current Visit: Yes Status: Chronic Qualifiers: Heart failure type: unspecified Heart failure chronicity: acute on chronic Qualified Code(s): I50.9 - Heart failure, unspecified Plan to address problem: CHF Protocol: Admit to telemetry, strict I/O, daily weight, bnp, supplemental oxygen, pulse oximetry, monitor uop q shift, afterload reduction, echo, thyroid panel, magnesium. (2) Atrial fibrillation Current Visit: Yes Status: Acute Qualifiers: Atrial fibrillation type: persistent Qualified Code(s): I48.1 - Persistent atrial fibrillation Plan to address problem: Rate control, admit to telemetry, continue therapeutic anticoagulation, cardiology consulted. (3) Diabetes Current Visit: No Status: Chronic Plan to address problem: ADA diet, insulin, accu check, hypoglycemia protocol (4) MARY ELLEN (obstructive sleep apnea) Current Visit: No Status: Chronic Plan to address problem: supplemental oxygen, nebulizer therapy, NIPPV as clinically indicated. (5) Pulmonary hypertension Current Visit: No Status: Chronic Plan to address problem: Supplemental oxygen, continue vasodilator therapy, pulse oximetry, (6) HTN (hypertension) Current Visit: Yes Status: Acute Qualifiers: Hypertension type: essential hypertension Qualified Code(s): I10 - Essential (primary) hypertension Plan to address problem: Monitor BP q shift, continue medical management. (7) DVT prophylaxis Current Visit: No Status: Acute Plan to address problem: SCD to BLE, continue therapeutic anticoagulation.
[2019-03-23] MEDS ORDERED: PROVENTIL IH PRN (18:21)
[2019-03-23] MEDS ORDERED: DILAUDID IV PRN (18:21)
[2019-03-23] MEDS ORDERED: ZOFRAN IV PRN (18:21)
[2019-03-23] MEDS ORDERED: SODIUM CHLORIDE FLUSH SYRINGE 10 ML IV PRN ×2 (18:21)
[2019-03-23] MEDS ORDERED: BABY ASPIRIN PO STA (18:39)
[2019-03-23 19:30] LABS: Chol/HDL Ratio 3.33 %
[2019-03-23 20:36] LABS: Free T4 (Free Thyroxine) 1.07 ng/dL (0.76-1.46)
[2019-03-23] MEDS: PRADAXA PO SCH (22:42)
[2019-03-23] MEDS: PEPCID PO SCH (22:42)
[2019-03-23] MEDS: AMBIEN PO SCH (22:43)
[2019-03-23] MEDS: SODIUM CHLORIDE FLUSH SYRINGE 10 ML IV SCH (22:43)
[2019-03-23] MEDS: APRESOLINE PO SCH (22:44)
[2019-03-24 04:57] LABS: Hemoglobin 9.5 gm/dl (10.1-14.3); Mean Corpuscular HGB Conc 33 % (30-34); Mean Corpuscular Volume 85 fl (79-97); Platelet Count 112 K/mm3 (140-440); Red Blood Count 3.43 M/mm3 (3.65-5.03); Red Cell Distribution Width 16.6 % (13.2-15.2)
[2019-03-24 05:14] LABS: BUN/Creatinine Ratio 21; Blood Urea Nitrogen 19 mg/dL (7-17); Hemolysis Index 1
[2019-03-24] MEDS: APRESOLINE PO SCH ×3 (05:29→21:50)
[2019-03-24 07:48] LABS: Basophils % (Manual) 0 % (0.0-1.8); Eosinophils % (Manual) 0 % (0.0-4.3); Monocytes % (Manual) 0 % (0.0-7.3); Total Cells Counted 100
[2019-03-24 07:49] LABS: Anisocytosis 1+; Platelet Estimate Consistent w Auto
[2019-03-24] MEDS ORDERED: NON-FORMULARY (Cetirizine Hcl [Zyrtec 10mg Cap] 10 MG) PO SCH (10:00)
[2019-03-24] MEDS ORDERED: LEXISCAN IV ONE ×2 (10:04)
[2019-03-24] MEDS: TYLENOL PO PRN (12:01)
[2019-03-24] MEDS: ZOLOFT PO SCH (12:02)
[2019-03-24] MEDS: FEOSOL PO SCH (12:02)
[2019-03-24] MEDS: IMDUR PO SCH (12:02)
[2019-03-24] MEDS: DIOVAN PO SCH (12:02)
[2019-03-24] MEDS: PEPCID PO SCH ×2 (12:02→21:50)
[2019-03-24] MEDS: CLARITIN PO SCH (12:03)
[2019-03-24] MEDS: LASIX PO SCH (12:03)
[2019-03-24] MEDS: CARDIZEM CD PO SCH (12:03)
[2019-03-24] MEDS: SODIUM CHLORIDE FLUSH SYRINGE 10 ML IV SCH ×2 (12:04→21:52)
[2019-03-24] MEDS: PRADAXA PO SCH (12:05)
--- NOTE | 2019-03-24 12:31 | Progress Note ---
Assessment and Plan Assessment and plan: --Chest pain. Patient with stress test performed this morning. Follow-up results. --Acute hypoxic respiratory failure. Etiology is multifactorial secondary to diastolic heart failure, severe pulmonary hypertension, MARY ELLEN/OHS. Continue O2 for supportive care and BiPAP as clinically indicated. --Acute on chronic diastolic CHF :Continue the anti-failure medications , cardiology following Echocardiogram on 04/2016 revealed mild concentric LVH with EF of 50-55%. --Severe pulmonary hypertension. RVSP of 118 mm Hg on echo done 12/2017. --A. fib, rate controlled. Continue current medications. Continue pradaxa --Diabetes mellitus. Continue Accu-Cheks and sliding scale insulin. --Hypertension. Continue antihypertensive medications. --CAD. Per cardiology. --DVT prophylaxis. Patient is on pradaxa History Interval history: 73-year-old female with past medical history significant for diastolic CHF, pulmonary hypertension, A. fib, CAD, diabetes presented to the emergency department with shortness of breath. No new issues overnight. Hospitalist Physical - Constitutional Vitals: Temp Pulse Resp BP Pulse Ox 98.0 F 64 18 168/70 95 03/24/19 07:24 03/24/19 07:24 03/24/19 07:24 03/24/19 11:03 03/24/19 10:03 General appearance: Present: no acute distress - EENT Eyes: Present: PERRL, EOM intact ENT: hearing intact, clear oral mucosa, dentition normal - Neck Neck: Present: supple, normal ROM - Respiratory Respiratory effort: normal Respiratory: bilateral: CTA - Cardiovascular Rhythm: regular Heart Sounds: Present: S1 & S2. Absent: gallop, rub - Extremities Extremities: no ischemia, No edema, Full ROM - Abdominal General gastrointestinal: soft, non-tender, non-distended, normal bowel sounds - Integumentary Integumentary: Present: clear, warm, dry - Neurologic Neurologic: CNII-XII intact, moves all extremities Results - Labs CBC & Chem 7: 03/24/19 04:14 03/24/19 04:14 Labs: Laboratory Last Values WBC 2.2 K/mm3 (4.5-11.0) L 03/24/19 04:14 RBC 3.43 M/mm3 (3.65-5.03) L 03/24/19 04:14 Hgb 9.5 gm/dl (10.1-14.3) L 03/24/19 04:14 Hct 29.0 % (30.3-42.9) L 03/24/19 04:14 MCV 85 fl (79-97) 03/24/19 04:14 MCH 28 pg (28-32) 03/24/19 04:14 MCHC 33 % (30-34) 03/24/19 04:14 RDW 16.6 % (13.2-15.2) H 03/24/19 04:14 Plt Count 112 K/mm3 (140-440) L 03/24/19 04:14 Lymph % (Auto) 33.1 % (13.4-35.0) 03/23/19 15:56 Otero % (Auto) 7.3 % (0.0-7.3) 03/23/19 15:56 Eos % (Auto) 1.5 % (0.0-4.3) 03/23/19 15:56 Baso % (Auto) Cosmetologist Apprentice 03/24/19 04:14 Lymph # 1.4 K/mm3 (1.2-5.4) 03/23/19 15:56 Otero # 0.3 K/mm3 (0.0-0.8) 03/23/19 15:56 Eos # 0.1 K/mm3 (0.0-0.4) 03/23/19 15:56 Baso # 0.0 K/mm3 (0.0-0.1) 03/23/19 15:56 Add Manual Diff Complete 03/24/19 04:14 Total Counted 100 03/24/19 04:14 Seg Neutrophils % 57.4 % (40.0-70.0) 03/23/19 15:56 Seg Neuts % (Manual) 84.0 % (40.0-70.0) H 03/24/19 04:14 0 % 03/24/19 04:14 16.0 % (13.4-35.0) 03/24/19 04:14 Reactive Lymphs % (Man) 0 % 03/24/19 04:14 0 % (0.0-7.3) 03/24/19 04:14 0 % (0.0-4.3) 03/24/19 04:14 0 % (0.0-1.8) 03/24/19 04:14 0 % 03/24/19 04:14 0 % 03/24/19 04:14 0 % 03/24/19 04:14 0 % 03/24/19 04:14 Nucleated RBC % Not Reportable 03/24/19 04:14 Seg Neutrophils # 2.4 K/mm3 (1.8-7.7) 03/23/19 15:56 Seg Neutrophils # Man 1.8 K/mm3 (1.8-7.7) 03/24/19 04:14 Band Neutrophils # 0.0 K/mm3 03/24/19 04:14 0.4 K/mm3 (1.2-5.4) L 03/24/19 04:14 Abs React Lymphs (Man) 0.0 K/mm3 03/24/19 04:14 0.0 K/mm3 (0.0-0.8) 03/24/19 04:14 0.0 K/mm3 (0.0-0.4) 03/24/19 04:14 0.0 K/mm3 (0.0-0.1) 03/24/19 04:14 0.0 K/mm3 03/24/19 04:14 0.0 K/mm3 03/24/19 04:14 0.0 K/mm3 03/24/19 04:14 Blast Cells # 0.0 K/mm3 03/24/19 04:14 WBC Morphology Not Reportable 03/24/19 04:14 Hypersegmented Neuts Not Reportable 03/24/19 04:14 Hyposegmented Neuts Not Reportable 03/24/19 04:14 Hypogranular Neuts Not Reportable 03/24/19 04:14 Not Reportable 03/24/19 04:14 Not Reportable 03/24/19 04:14 Not Reportable 03/24/19 04:14 Not Reportable 03/24/19 04:14 Not Reportable 03/24/19 04:14 Not Reportable 03/24/19 04:14 Consistent w auto 03/24/19 04:14 Not Reportable 03/24/19 04:14 Plt Clumps, EDTA Not Reportable 03/24/19 04:14 Not Reportable 03/24/19 04:14 Not Reportable 03/24/19 04:14 Not Reportable 03/24/19 04:14 Plt Morphology Comment Not Reportable 03/24/19 04:14 RBC Morphology Not Reportable 03/24/19 04:14 Dimorphic RBCs Not Reportable 03/24/19 04:14 Not Reportable 03/24/19 04:14 Not Reportable 03/24/19 04:14 Not Reportable 03/24/19 04:14 1+ 03/24/19 04:14 Not Reportable 03/24/19 04:14 Not Reportable 03/24/19 04:14 Not Reportable 03/24/19 04:14 Not Reportable 03/24/19 04:14 Not Reportable 03/24/19 04:14 Not Reportable 03/24/19 04:14 Not Reportable 03/24/19 04:14 Not Reportable 03/24/19 04:14 Not Reportable 03/24/19 04:14 Not Reportable 03/24/19 04:14 Not Reportable 03/24/19 04:14 Not Reportable 03/24/19 04:14 Not Reportable 03/24/19 04:14 Not Reportable 03/24/19 04:14 1+ 03/24/19 04:14 Acanthocytes (Spur) Not Reportable 03/24/19 04:14 Rouleaux Not Reportable 03/24/19 04:14 Not Reportable 03/24/19 04:14 Not Reportable 03/24/19 04:14 Not Reportable 03/24/19 04:14 Not Reportable 03/24/19 04:14 Hem Pathologist Commnt No 03/24/19 04:14 VBG pH 7.441 (7.320-7.420) H 03/23/19 16:39 Sodium 138 mmol/L (137-145) 03/24/19 04:14 Potassium 4.1 mmol/L (3.6-5.0) 03/24/19 04:14 Chloride 102.2 mmol/L (98-107) 03/24/19 04:14 Carbon Dioxide 22 mmol/L (22-30) 03/24/19 04:14 18 mmol/L 03/24/19 04:14 BUN 19 mg/dL (7-17) H 03/24/19 04:14 0.9 mg/dL (0.7-1.2) 03/24/19 04:14 Estimated GFR > 60 ml/min 03/24/19 04:14 21 % 03/24/19 04:14 Glucose 278 mg/dL (65-100) H 03/24/19 04:14 POC Glucose 193 (70-105) H 03/24/19 07:27 Lactic Acid 1.00 mmol/L (0.7-2.0) 03/23/19 16:39 Calcium 9.0 mg/dL (8.4-10.2) 03/24/19 04:14 Magnesium 2.40 mg/dL (1.7-2.3) H 03/23/19 19:36 50 units/L (30-135) 03/23/19 16:39 CK-MB (CK-2) 1.9 ng/mL (0.0-4.0) 03/23/19 16:39 CK-MB (CK-2) Rel Index 3.8 (0-4) 03/23/19 16:39 < 0.010 ng/mL (0.00-0.029) 03/24/19 00:24 NT-Pro-B Natriuret Pep 2586 pg/mL (0-900) H 03/23/19 15:56 Triglycerides 102 mg/dL (2-149) 03/23/19 18:29 Cholesterol 140 mg/dL (50-199) 03/23/19 18:29 93 mg/dL (50-130) 03/23/19 18:29 42 mg/dL (40-59) 03/23/19 18:29 3.33 % 03/23/19 18:29 TSH 1.200 mlU/mL (0.270-4.200) 03/23/19 19:36 Free T4 1.07 ng/dL (0.76-1.46) 03/23/19 19:36 Free T4 1.08 ng/dL (0.76-1.46) 03/23/19 19:36 Active Medications - Current Medications Current Medications: Generic Name Dose Route Start Last Admin Trade Name Freq PRN Reason Stop Dose Admin Acetaminophen 650 mg 03/23/19 18:21 03/24/19 12:01 Tylenol PO 650 mg Q4H PRN Administration Pain MILD(1-3)/Fever >100.5/PARISI Albuterol 2.5 mg 03/23/19 18:21 Proventil IH Q4HRT PRN Shortness Of Breath Clonazepam 0.5 mg 03/24/19 10:00 03/24/19 12:03 Klonopin PO 0.5 mg DAILY ANGIE Administration Dabigatran 150 mg 03/23/19 22:00 03/24/19 12:05 Pradaxa PO Not Given BID [facility] Protocol Diltiazem HCl 240 mg 03/24/19 10:00 03/24/19 12:03 Cardizem Cd PO 240 mg DAILY ANGIE Administration Famotidine 10 mg 03/23/19 22:00 03/24/19 12:02 Pepcid PO 10 mg BID ANGIE Administration Ferrous Sulfate 325 mg 03/24/19 10:00 03/24/19 12:02 Feosol PO 325 mg QDAY ANGIE Administration Furosemide 40 mg 03/24/19 10:00 03/24/19 12:03 Lasix PO [address] [facility] Administration Hydralazine HCl 25 mg 03/23/19 22:00 03/24/19 05:29 Apresoline PO 25 mg Q8HR ANGIE Administration Hydromorphone HCl 0.25 mg 03/23/19 18:21 03/23/19 19:02 Dilaudid IV 0.25 mg Q3H PRN Administration Pain, Moderate (4-6) Isosorbide Mononitrate 30 mg 03/24/19 10:00 03/24/19 12:02 Imdur PO [address] [facility] Administration Loratadine 10 mg 03/24/19 10:00 03/24/19 12:03 Claritin PO 10 mg DAILY ANGIE Administration Miscellaneous Medication 40 mg 03/24/19 10:00 Tadalafil (Nf) PO QDAY [facility] Ondansetron HCl 4 mg 03/23/19 18:21 Zofran IV Q8H PRN Nausea And Vomiting Sertraline HCl 50 mg 03/24/19 10:00 03/24/19 12:02 Zoloft PO 50 mg QDAY ANGIE Administration Sodium Chloride 10 ml 03/23/19 22:00 03/24/19 12:04 Sodium Chloride Flush Syringe 10 Ml IV 10 ml BID ANGIE Administration Sodium Chloride 10 ml 03/23/19 18:21 Sodium Chloride Flush Syringe 10 Ml IV PRN PRN LINE FLUSH Sodium Chloride 10 ml 03/23/19 18:21 Sodium Chloride Flush Syringe 10 Ml IV PRN PRN LINE FLUSH Valsartan 160 mg 03/24/19 10:00 03/24/19 12:02 Diovan PO 160 mg QDAY ANGIE Administration Zolpidem Tartrate 5 mg 03/23/19 22:00 03/23/19 22:43 Ambien PO 5 mg QHS ANGIE Administration
--- NOTE | 2019-03-24 13:17 | Treadmill Report ---
The patient is a 73-year-old female with known coronary artery disease with history of shortness of breath with minimal exertion with underlying pulmonary hypertension, underwent IV Lexiscan myocardial perfusion imaging. The patient was given resting radionuclide technetium pyrophosphate sestamibi followed by pharmacological testing with IV Lexiscan and post-stress images were obtained with the re-injection of technetium pyrophosphate sestamibi. Pre and post-stress perfusion images were reviewed. Gated stress images were reviewed. Following findings were noted: There is normal perfusion noted in the rest and stress images with some mild reduction in the inferior wall, which was felt to be secondary to diaphragmatic attenuation. Otherwise, no reversible defects were noted. Normal size left ventricle with normal wall thickening noted. Ejection fraction was calculated to be 61%. Transient ischemic dilation ratio was found to be 1.13. FINAL IMPRESSION: 1. Normal myocardial perfusion images with no evidence of reversible defect. 2. Normal left ventricular systolic function noted. This was felt to be low-risk study for future coronary events. [facility]# [id number] LINO/DEEPTHI MI
--- NOTE | 2019-03-24 16:35 | Consultation ---
History of Present Illness Consult date: 03/24/19 Past History Past Medical History: atrial fib, arthritis, CAD, diabetes, heart failure, stroke, other (Pulmonary Hypertension,) Past Surgical History: appendectomy, cholecystectomy, CABG, hernia repair, total knee replacement, Other (Ankle surgery) Social history: . denies: smoking, alcohol abuse, prescription drug abuse Family history: CAD, diabetes, hypertension Medications and Allergies Allergies Allergy/AdvReac Type Severity Reaction Status Date / Time Penicillins Allergy Severe Swelling Verified 11/11/14 17:37 codeine AdvReac Nausea Verified 11/11/14 17:37 hydrocodone AdvReac Nausea Verified 11/11/14 17:37 Home Medications Medication Instructions Recorded Confirmed Last Taken Type Valsartan [Diovan] 160 mg PO QDAY 01/31/14 03/23/19 06/21/18 08:00 History Cetirizine HCl [ZyrTEC 10mg cap] 10 mg PO DAILY 11/11/14 03/23/19 06/21/18 08:00 History Tadalafil (Nf) [Adcirca (Nf)] 40 mg PO BID 11/11/14 03/23/19 06/21/18 08:00 History Sitagliptin Phos/Metformin HCl 1 tab PO BID 06/10/16 03/23/19 06/21/18 08:00 History [Janumet 50-1,000 mg] clonazePAM [KlonoPIN] 0.5 mg PO DAILY 09/15/16 03/23/19 06/21/18 08:00 History Dabigatran Etexilate Mesylate 150 mg PO BID 06/21/18 03/23/19 06/21/18 08:00 History [Pradaxa] Diltiazem HCl [Diltiazem 24Hr ER] 240 mg PO DAILY 06/21/18 03/23/19 06/21/18 08:00 History Ferrous Sulfate [Feosol 325 MG tab] 325 mg PO QDAY 06/21/18 03/23/19 06/21/18 08:00 History Furosemide [Lasix TAB] 40 mg PO BID 06/21/18 03/23/19 06/21/18 08:00 History Zolpidem [Ambien] 5 mg PO QHS 06/21/18 03/23/19 06/20/18 21:00 History Gabapentin [Neurontin] 800 mg PO BID 03/23/19 03/23/19 Unknown History Active Meds: Active Medications Acetaminophen (Tylenol) 650 mg PO Q4H PRN PRN Reason: Pain MILD(1-3)/Fever >100.5/PARISI Last Admin: 03/24/19 12:01 Dose: 650 mg Documented by: Albuterol (Proventil) 2.5 mg IH Q4HRT PRN PRN Reason: Shortness Of Breath Clonazepam (Klonopin) 0.5 mg PO DAILY [facility] Last Admin: 03/24/19 12:03 Dose: 0.5 mg Documented by: Dabigatran (Pradaxa) 150 mg PO BID [facility]; Protocol Last Admin: 03/24/19 12:05 Dose: Not Given Documented by: Diltiazem HCl (Cardizem Cd) 240 mg PO DAILY [facility] Last Admin: 03/24/19 12:03 Dose: 240 mg Documented by: Famotidine (Pepcid) 10 mg PO BID [facility] Last Admin: 03/24/19 12:02 Dose: 10 mg Documented by: Ferrous Sulfate (Feosol) 325 mg PO QDAY [facility] Last Admin: 03/24/19 12:02 Dose: 325 mg Documented by: Furosemide (Lasix) 40 mg PO QDAY [facility] Last Admin: 03/24/19 12:03 Dose: 40 mg Documented by: Hydralazine HCl (Apresoline) 25 mg PO Q8HR [facility] Last Admin: 03/24/19 05:29 Dose: 25 mg Documented by: Hydromorphone HCl (Dilaudid) 0.25 mg IV Q3H PRN PRN Reason: Pain, Moderate (4-6) Last Admin: 03/23/19 19:02 Dose: 0.25 mg Documented by: Isosorbide Mononitrate (Imdur) 30 mg PO QDAY [facility] Last Admin: 03/24/19 12:02 Dose: 30 mg Documented by: Loratadine (Claritin) 10 mg PO DAILY [facility] Last Admin: 03/24/19 12:03 Dose: 10 mg Documented by: Miscellaneous Medication (Tadalafil (Nf)) 40 mg PO QDAY [facility] Ondansetron HCl (Zofran) 4 mg IV Q8H PRN PRN Reason: Nausea And Vomiting Sertraline HCl (Zoloft) 50 mg PO QDAY [facility] Last Admin: 03/24/19 12:02 Dose: 50 mg Documented by: Sodium Chloride (Sodium Chloride Flush Syringe 10 Ml) 10 ml IV BID [facility] Last Admin: 03/24/19 12:04 Dose: 10 ml Documented by: Sodium Chloride (Sodium Chloride Flush Syringe 10 Ml) 10 ml IV PRN PRN PRN Reason: LINE FLUSH Sodium Chloride (Sodium Chloride Flush Syringe 10 Ml) 10 ml IV PRN PRN PRN Reason: LINE FLUSH Valsartan (Diovan) 160 mg PO QDAY [facility] Last Admin: 03/24/19 12:02 Dose: 160 mg Documented by: Zolpidem Tartrate (Ambien) 5 mg PO QHS [facility] Last Admin: 03/23/19 22:43 Dose: 5 mg Documented by: Physical Examination Vital Signs Pulse Resp 72 19 03/23/19 15:50 03/23/19 15:50 General appearance: no acute distress Neck: Positive: trachea midline Cardiac: Positive: Reg Rate and Rhythm, S4 Lungs: Positive: clear to auscultation Neuro: Positive: Grossly Intact Abdomen: Positive: Unremarkable Skin: Negative: Rash Extremities: Absent: edema Results 03/24/19 04:14 03/24/19 04:14 Cardiac Enzymes 03/23/19 Range/Units 16:39 CK-MB (CK-2) 1.9 (0.0-4.0) ng/mL Lipids 03/23/19 Range/Units 18:29 Triglycerides 102 (2-149) mg/dL Cholesterol 140 (50-199) mg/dL HDL Cholesterol 42 (40-59) mg/dL Cholesterol/HDL Ratio 3.33 % CBC 03/24/19 Range/Units 04:14 WBC 2.2 L (4.5-11.0) K/mm3 RBC 3.43 L (3.65-5.03) M/mm3 Hgb 9.5 L (10.1-14.3) gm/dl Hct 29.0 L (30.3-42.9) % Plt Count 112 L (140-440) K/mm3 Comprehensive Metabolic Panel 03/23/19 03/24/19 Range/Units 15:56 04:14 Sodium 141 138 (137-145) mmol/L Potassium 3.9 4.1 (3.6-5.0) mmol/L Chloride 104.5 102.2 (98-107) mmol/L Carbon Dioxide 23 22 (22-30) mmol/L BUN 17 19 H (7-17) mg/dL Creatinine 1.0 0.9 (0.7-1.2) mg/dL Glucose 109 H 278 H (65-100) mg/dL Calcium 9.2 9.0 (8.4-10.2) mg/dL Assessment and Plan Patient with known severe pulmonary hypertension,?secondary to elevated left sided pressures and hx. of coronary artery disease presented with SOB on minimal exertion and chest pressure.IV LExiscan MPI wa sunremarkable,will check echo and may need repeat right hear catheterization.Will hold Pradaxa. - Patient Problems (1) Anemia Current Visit: Yes Status: Acute Qualifiers: Anemia type: unspecified type Qualified Code(s): D64.9 - Anemia, unspecified (2) Atrial fibrillation Current Visit: Yes Status: Acute Qualifiers: Atrial fibrillation type: persistent Qualified Code(s): I48.1 - Persistent atrial fibrillation (3) Chest pain Current Visit: Yes Status: Acute Qualifiers: Chest pain type: unspecified Qualified Code(s): R07.9 - Chest pain, unspecified (4) SOB (shortness of breath) Current Visit: Yes Status: Acute (5) Obesity (BMI 30.0-34.9) Current Visit: No Status: Acute (6) History of PTCA Current Visit: No Status: Chronic (7) Hyperlipemia Current Visit: No Status: Chronic (8) Moderate to severe pulmonary hypertension Current Visit: No Status: Chronic (9) MARY ELLEN (obstructive sleep apnea) Current Visit: No Status: Chronic
[2019-03-24] MEDS: AMBIEN PO SCH (21:50)
[2019-03-25] MEDS ORDERED: APRESOLINE IV PRN (03:20)
[2019-03-25] MEDS: APRESOLINE PO SCH ×3 (05:54→21:43)
[2019-03-25 06:50] LABS: BUN/Creatinine Ratio 25; Blood Urea Nitrogen 20 mg/dL (7-17); Calcium 8.8 mg/dL (8.4-10.2); Hemolysis Index 3
[2019-03-25 07:22] LABS: Basophils % (Auto) 0.3 % (0.0-1.8); Eosinophils % (Auto) 0.1 % (0.0-4.3); Hematocrit 28.4 % (30.3-42.9); Hemoglobin 9.4 gm/dl (10.1-14.3); Lymphocytes # (Auto) 0.5 K/mm3 (1.2-5.4); Mean Corpuscular HGB Conc 33 % (30-34); Mean Corpuscular Volume 84 fl (79-97); Monocytes # (Auto) 0.5 K/mm3 (0.0-0.8); Platelet Count 130 K/mm3 (140-440); Red Blood Count 3.38 M/mm3 (3.65-5.03); Red Cell Distribution Width 16.3 % (13.2-15.2)
[2019-03-25] MEDS: TYLENOL PO PRN (08:44)
[2019-03-25] MEDS: CARDIZEM CD PO SCH (09:09)
[2019-03-25] MEDS: ZOLOFT PO SCH (09:09)
[2019-03-25] MEDS: FEOSOL PO SCH (09:09)
[2019-03-25] MEDS: PEPCID PO SCH ×2 (09:09→21:43)
[2019-03-25] MEDS: CLARITIN PO SCH (09:09)
[2019-03-25] MEDS: DIOVAN PO SCH (09:10)
[2019-03-25] MEDS: LASIX PO SCH (09:10)
[2019-03-25] MEDS: SODIUM CHLORIDE FLUSH SYRINGE 10 ML IV SCH ×2 (09:10→21:43)
[2019-03-25] MEDS: IMDUR PO SCH (09:10)
--- NOTE | 2019-03-25 10:18 | Progress Note ---
Assessment and Plan Assessment and plan: --Chest pain. IV LExiscan MPI wa sunremarkable, --Acute hypoxic respiratory failure. Etiology is multifactorial secondary to diastolic heart failure, severe pulmonary hypertension, MARY ELLEN/OHS. Continue O2 for supportive care and BiPAP as clinically indicated. --Acute on chronic diastolic CHF :Continue the anti-failure medications , cardiology following Echocardiogram on 04/2016 revealed mild concentric LVH with EF of 50-55%. Follow-up repeat echocardiogram --Severe pulmonary hypertension. RVSP of 118 mm Hg on echo done 12/2017. Cardiology feels that patient may need repeat right heart catheterization. Will hold Pradaxa. --A. fib, rate controlled. Continue current medications. Pradaxa on hold --Diabetes mellitus. Continue Accu-Cheks and sliding scale insulin. --Hypertension. Continue antihypertensive medications. --CAD. Per cardiology. IV LExiscan MPI wa sunremarkable, --DVT prophylaxis. Patient is on pradaxa History Interval history: 73-year-old female with past medical history significant for diastolic CHF, pulmonary hypertension, A. fib, CAD, diabetes presented to the emergency department with shortness of breath. No new issues overnight. Hospitalist Physical - Constitutional Vitals: Temp Pulse Resp BP Pulse Ox 98.5 F 69 21 130/59 96 03/25/19 08:08 03/25/19 09:23 03/25/19 09:23 03/25/19 08:08 03/25/19 09:23 General appearance: Present: no acute distress - EENT Eyes: Present: PERRL, EOM intact ENT: hearing intact, clear oral mucosa, dentition normal - Neck Neck: Present: supple, normal ROM - Respiratory Respiratory effort: normal Respiratory: bilateral: CTA - Cardiovascular Rhythm: regular Heart Sounds: Present: S1 & S2. Absent: gallop, rub - Extremities Extremities: no ischemia, No edema, Full ROM - Abdominal General gastrointestinal: soft, non-tender, non-distended, normal bowel sounds - Integumentary Integumentary: Present: clear, warm, dry - Neurologic Neurologic: CNII-XII intact, moves all extremities Results - Labs CBC & Chem 7: 03/25/19 05:48 03/25/19 05:48 Labs: Laboratory Last Values WBC 6.5 K/mm3 (4.5-11.0) 03/25/19 05:48 RBC 3.38 M/mm3 (3.65-5.03) L 03/25/19 05:48 Hgb 9.4 gm/dl (10.1-14.3) L 03/25/19 05:48 Hct 28.4 % (30.3-42.9) L 03/25/19 05:48 MCV 84 fl (79-97) 03/25/19 05:48 MCH 28 pg (28-32) 03/25/19 05:48 MCHC 33 % (30-34) 03/25/19 05:48 RDW 16.3 % (13.2-15.2) H 03/25/19 05:48 Plt Count 130 K/mm3 (140-440) L 03/25/19 05:48 Lymph % (Auto) 8.0 % (13.4-35.0) L 03/25/19 05:48 [place] % (Auto) 7.0 % (0.0-7.3) 03/25/19 05:48 Eos % (Auto) 0.1 % (0.0-4.3) 03/25/19 05:48 Baso % (Auto) 0.3 % (0.0-1.8) 03/25/19 05:48 Lymph # 0.5 K/mm3 (1.2-5.4) L 03/25/19 05:48 [place] # 0.5 K/mm3 (0.0-0.8) 03/25/19 05:48 Eos # 0.0 K/mm3 (0.0-0.4) 03/25/19 05:48 Baso # 0.0 K/mm3 (0.0-0.1) 03/25/19 05:48 Add Manual Diff Complete 03/24/19 04:14 Total Counted 100 03/24/19 04:14 Seg Neutrophils % 84.6 % (40.0-70.0) H 03/25/19 05:48 Seg Neuts % (Manual) 84.0 % (40.0-70.0) H 03/24/19 04:14 0 % 03/24/19 04:14 16.0 % (13.4-35.0) 03/24/19 04:14 Reactive Lymphs % (Man) 0 % 03/24/19 04:14 0 % (0.0-7.3) 03/24/19 04:14 0 % (0.0-4.3) 03/24/19 04:14 0 % (0.0-1.8) 03/24/19 04:14 0 % 03/24/19 04:14 0 % 03/24/19 04:14 0 % 03/24/19 04:14 0 % 03/24/19 04:14 Nucleated RBC % Not Reportable 03/24/19 04:14 Seg Neutrophils # 5.5 K/mm3 (1.8-7.7) 03/25/19 05:48 Seg Neutrophils # Man 1.8 K/mm3 (1.8-7.7) 03/24/19 04:14 Band Neutrophils # 0.0 K/mm3 03/24/19 04:14 0.4 K/mm3 (1.2-5.4) L 03/24/19 04:14 Abs React Lymphs (Man) 0.0 K/mm3 03/24/19 04:14 0.0 K/mm3 (0.0-0.8) 03/24/19 04:14 0.0 K/mm3 (0.0-0.4) 03/24/19 04:14 0.0 K/mm3 (0.0-0.1) 03/24/19 04:14 0.0 K/mm3 03/24/19 04:14 0.0 K/mm3 03/24/19 04:14 0.0 K/mm3 03/24/19 04:14 Blast Cells # 0.0 K/mm3 03/24/19 04:14 WBC Morphology Not Reportable 03/24/19 04:14 Hypersegmented Neuts Not Reportable 03/24/19 04:14 Hyposegmented Neuts Not Reportable 03/24/19 04:14 Hypogranular Neuts Not Reportable 03/24/19 04:14 Not Reportable 03/24/19 04:14 Not Reportable 03/24/19 04:14 Not Reportable 03/24/19 04:14 Not Reportable 03/24/19 04:14 Not Reportable 03/24/19 04:14 Not Reportable 03/24/19 04:14 Consistent w auto 03/24/19 04:14 Not Reportable 03/24/19 04:14 Plt Clumps, EDTA Not Reportable 03/24/19 04:14 Not Reportable 03/24/19 04:14 Not Reportable 03/24/19 04:14 Not Reportable 03/24/19 04:14 Plt Morphology Comment Not Reportable 03/24/19 04:14 RBC Morphology Not Reportable 03/24/19 04:14 Dimorphic RBCs Not Reportable 03/24/19 04:14 Not Reportable 03/24/19 04:14 Not Reportable 03/24/19 04:14 Not Reportable 03/24/19 04:14 1+ 03/24/19 04:14 Not Reportable 03/24/19 04:14 Not Reportable 03/24/19 04:14 Not Reportable 03/24/19 04:14 Not Reportable 03/24/19 04:14 Not Reportable 03/24/19 04:14 Not Reportable 03/24/19 04:14 Not Reportable 03/24/19 04:14 Not Reportable 03/24/19 04:14 Not Reportable 03/24/19 04:14 Not Reportable 03/24/19 04:14 Not Reportable 03/24/19 04:14 Not Reportable 03/24/19 04:14 Not Reportable 03/24/19 04:14 Not Reportable 03/24/19 04:14 1+ 03/24/19 04:14 Acanthocytes (Spur) Not Reportable 03/24/19 04:14 Rouleaux Not Reportable 03/24/19 04:14 Not Reportable 03/24/19 04:14 Not Reportable 03/24/19 04:14 Not Reportable 03/24/19 04:14 Not Reportable 03/24/19 04:14 Hem Pathologist Commnt No 03/24/19 04:14 VBG pH 7.441 (7.320-7.420) H 03/23/19 16:39 Sodium 140 mmol/L (137-145) 03/25/19 05:48 Potassium 3.8 mmol/L (3.6-5.0) 03/25/19 05:48 Chloride 101.5 mmol/L (98-107) 03/25/19 05:48 Carbon Dioxide 22 mmol/L (22-30) 03/25/19 05:48 20 mmol/L 03/25/19 05:48 BUN 20 mg/dL (7-17) H 03/25/19 05:48 0.8 mg/dL (0.7-1.2) 03/25/19 05:48 Estimated GFR > 60 ml/min 03/25/19 05:48 25 % 03/25/19 05:48 Glucose 167 mg/dL (65-100) H 03/25/19 05:48 POC Glucose 153 (70-105) H 03/25/19 08:14 Lactic Acid 1.00 mmol/L (0.7-2.0) 03/23/19 16:39 Calcium 8.8 mg/dL (8.4-10.2) 03/25/19 05:48 Magnesium 2.40 mg/dL (1.7-2.3) H 03/23/19 19:36 50 units/L (30-135) 03/23/19 16:39 CK-MB (CK-2) 1.9 ng/mL (0.0-4.0) 03/23/19 16:39 CK-MB (CK-2) Rel Index 3.8 (0-4) 03/23/19 16:39 < 0.010 ng/mL (0.00-0.029) 03/24/19 00:24 NT-Pro-B Natriuret Pep 2586 pg/mL (0-900) H 03/23/19 15:56 Triglycerides 102 mg/dL (2-149) 03/23/19 18:29 Cholesterol 140 mg/dL (50-199) 03/23/19 18:29 93 mg/dL (50-130) 03/23/19 18:29 42 mg/dL (40-59) 03/23/19 18:29 3.33 % 03/23/19 18:29 TSH 1.200 mlU/mL (0.270-4.200) 03/23/19 19:36 Free T4 1.07 ng/dL (0.76-1.46) 03/23/19 19:36 Free T4 1.08 ng/dL (0.76-1.46) 03/23/19 19:36 Active Medications - Current Medications Current Medications: Generic Name Dose Route Start Last Admin Trade Name Freq PRN Reason Stop Dose Admin Acetaminophen 650 mg 03/23/19 18:21 03/25/19 08:44 Tylenol PO 650 mg Q4H PRN Administration Pain MILD(1-3)/Fever >100.5/PARISI Albuterol 2.5 mg 03/23/19 18:21 Proventil IH Q4HRT PRN Shortness Of Breath Clonazepam 0.5 mg 03/24/19 10:00 03/25/19 09:09 Klonopin PO 0.5 mg DAILY ANGIE Administration Diltiazem HCl 240 mg 03/24/19 10:00 03/25/19 09:09 Cardizem Cd PO 240 mg DAILY ANGIE Administration Famotidine 10 mg 03/23/19 22:00 03/25/19 09:09 Pepcid PO 10 mg BID ANGIE Administration Ferrous Sulfate 325 mg 03/24/19 10:00 03/25/19 09:09 Feosol PO 325 mg QDAY ANGIE Administration Furosemide 40 mg 03/24/19 10:00 03/25/19 09:10 Lasix PO 40 mg QDAY ANGIE Administration Hydralazine HCl 25 mg 03/23/19 22:00 03/25/19 05:54 Apresoline PO 25 mg Q8HR ANGIE Administration Hydralazine HCl 10 mg 03/25/19 03:20 03/25/19 03:33 Apresoline IV 10 mg Q4H PRN Administration Hypertension Hydromorphone HCl 0.25 mg 03/23/19 18:21 03/23/19 19:02 Dilaudid IV 0.25 mg Q3H PRN Administration Pain, Moderate (4-6) Isosorbide Mononitrate 30 mg 03/24/19 10:00 03/25/19 09:10 Imdur PO Not Given QDAY ANGIE Loratadine 10 mg 03/24/19 10:00 03/25/19 09:09 Claritin PO 10 mg DAILY ANGIE Administration Miscellaneous Medication 40 mg 03/24/19 10:00 Tadalafil (Nf) PO QDAY ANGIE Ondansetron HCl 4 mg 03/23/19 18:21 03/25/19 08:38 Zofran IV 4 mg Q8H PRN Administration Nausea And Vomiting Sertraline HCl 50 mg 03/24/19 10:00 03/25/19 09:09 Zoloft PO 50 mg QDAY ANGIE Administration Sodium Chloride 10 ml 03/23/19 22:00 03/25/19 09:10 Sodium Chloride Flush Syringe 10 Ml IV 10 ml BID ANGIE Administration Sodium Chloride 10 ml 03/23/19 18:21 Sodium Chloride Flush Syringe 10 Ml IV PRN PRN LINE FLUSH Sodium Chloride 10 ml 03/23/19 18:21 Sodium Chloride Flush Syringe 10 Ml IV PRN PRN LINE FLUSH Valsartan 160 mg 03/24/19 10:00 03/25/19 09:10 Diovan PO Not Given QDAY ANGIE Zolpidem Tartrate 5 mg 03/23/19 22:00 03/24/19 21:50 Ambien PO 5 mg QHS ANGIE Administration
[2019-03-25] MEDS: NON-FORMULARY (Tadalafil (Nf) 40 MG) PO SCH (11:10)
--- NOTE | 2019-03-25 15:27 | Progress Note ---
Assessment and Plan Patient with known severe pulmonary hypertension,?secondary to elevated left sided pressures and hx. of coronary artery disease presented with SOB on minimal exertion and chest pressure.IV LExiscan MPI wa sunremarkable,will check echo and may need repeat right hear catheterization.Will hold Pradaxa. 03/25/2019>iv Lexiscam MPI was found to be unremarkable.Echo doppler studies showed severe pulmonary hypertension. Explained findings to patient.Patient would like to be evaluated by .Restart Pradaxa. - Patient Problems (1) Anemia Current Visit: Yes Status: Acute Qualifiers: Anemia type: unspecified type Qualified Code(s): D64.9 - Anemia, unspecified (2) Atrial fibrillation Current Visit: Yes Status: Acute Qualifiers: Atrial fibrillation type: persistent Qualified Code(s): I48.1 - Persistent atrial fibrillation (3) Chest pain Current Visit: Yes Status: Acute Qualifiers: Chest pain type: unspecified Qualified Code(s): R07.9 - Chest pain, unspecified (4) SOB (shortness of breath) Current Visit: Yes Status: Acute (5) Obesity (BMI 30.0-34.9) Current Visit: No Status: Acute (6) History of PTCA Current Visit: No Status: Chronic (7) Hyperlipemia Current Visit: No Status: Chronic (8) Moderate to severe pulmonary hypertension Current Visit: No Status: Chronic (9) MARY ELLEN (obstructive sleep apnea) Current Visit: No Status: Chronic Subjective Date of service: 03/25/19 Interval history: Patient is using BipAP,feels ok. Objective Vital Signs Temp Pulse Pulse Pulse Resp Resp BP 03/25/19 13:00 63 115/49 03/25/19 12:27 97.7 F 63 22 115/49 03/25/19 10:00 75 76 24 03/25/19 09:23 69 21 03/25/19 08:08 98.5 F 76 24 130/59 03/25/19 05:54 93 H 152/59 03/25/19 04:49 98.5 F 93 H 18 152/59 03/25/19 03:33 84 177/84 03/25/19 01:33 177/84 03/25/19 00:06 98.3 F 88 18 186/64 03/24/19 23:40 86 28 H 186/64 03/24/19 23:10 18 03/24/19 21:50 66 160/60 03/24/19 20:24 66 18 03/24/19 19:22 98.2 F 61 18 160/60 Pulse Ox 03/25/19 13:00 03/25/19 12:27 97 03/25/19 10:00 96 03/25/19 09:23 96 03/25/19 08:08 96 03/25/19 05:54 03/25/19 04:49 97 03/25/19 03:33 03/25/19 01:33 03/25/19 00:06 90 03/24/19 23:40 96 03/24/19 23:10 03/24/19 21:50 03/24/19 20:24 95 03/24/19 19:22 95 - Physical Examination Narrative exam: obese.Using BipAP. Neck: Positive: trachea midline Cardiac: Positive: irregularly irregular Lungs: Positive: Decreased Breath Sounds Neuro: Positive: Grossly Intact Abdomen: Positive: Unremarkable Skin: Negative: Rash Extremities: Absent: edema - Labs and Meds CBC 03/25/19 Range/Units 05:48 WBC 6.5 (4.5-11.0) K/mm3 RBC 3.38 L (3.65-5.03) M/mm3 Hgb 9.4 L (10.1-14.3) gm/dl Hct 28.4 L (30.3-42.9) % Plt Count 130 L (140-440) K/mm3 Lymph # 0.5 L (1.2-5.4) K/mm3 [place] # 0.5 (0.0-0.8) K/mm3 Eos # 0.0 (0.0-0.4) K/mm3 Baso # 0.0 (0.0-0.1) K/mm3 Comprehensive Metabolic Panel 03/25/19 Range/Units 05:48 Sodium 140 (137-145) mmol/L Potassium 3.8 (3.6-5.0) mmol/L Chloride 101.5 (98-107) mmol/L Carbon Dioxide 22 (22-30) mmol/L BUN 20 H (7-17) mg/dL Creatinine 0.8 (0.7-1.2) mg/dL Glucose 167 H (65-100) mg/dL Calcium 8.8 (8.4-10.2) mg/dL - Telemetry EKG Rhythm: Atrial Fibrillation
[2019-03-25] MEDS: AMBIEN PO SCH (21:42)
[2019-03-25] MEDS: PRADAXA PO SCH (21:43)
[2019-03-26] MEDS: APRESOLINE PO SCH ×3 (05:32→22:12)
--- NOTE | 2019-03-26 10:17 | Progress Note ---
Assessment and Plan Assessment and plan: --Acute hypoxic respiratory failure. Etiology is multifactorial secondary to diastolic heart failure, severe pulmonary hypertension, MARY ELLEN/OHS. Continue O2 for supportive care and BiPAP as clinically indicated. Patient will need ambulation/oxygen fit test prior to discharge. Patient will likely need home O2. --Acute on chronic diastolic CHF :Continue the anti-failure medications , cardiology following Echocardiogram this admission reveals global left ventricular wall motion and contractility within normal limits with severely dilated left atrium. Left ventricular diastolic function normal. Right ventricle is mild to moderately dilated with right ventricular global systolic function mildly reduced right ventricular systolic pressure is calculated at 121 mmHg--severe pulmonary --Severe pulmonary hypertension. RVSP of 121 mm Hg on echo done this hospitalization. Cardiology feels that patient may need repeat right heart catheterization. Will hold Pradaxa. --Chest pain. IV LExiscan MPI was unremarkable. --A. fib, rate controlled. Continue current medications. Pradaxa restarted. --Diabetes mellitus. Continue Accu-Cheks and sliding scale insulin. --Hypertension. Continue antihypertensive medications. --CAD. Per cardiology. IV LExiscan MPI was unremarkable, --DVT prophylaxis. Patient is on pradaxa Disposition. ? Home O2 based on fit test results and await PT evaluation. We will discuss with case management. History Interval history: 73-year-old female with past medical history significant for diastolic CHF, pulmonary hypertension, A. fib, CAD, diabetes presented to the emergency department with shortness of breath. No new issues overnight. Hospitalist Physical - Constitutional Vitals: Temp Pulse Resp BP Pulse Ox 98.0 F 55 L 18 145/57 97 03/26/19 07:22 03/26/19 08:31 03/26/19 08:31 03/26/19 07:22 03/26/19 07:22 General appearance: Present: no acute distress - EENT Eyes: Present: PERRL, EOM intact ENT: hearing intact, clear oral mucosa, dentition normal - Neck Neck: Present: supple, normal ROM - Respiratory Respiratory effort: normal Respiratory: bilateral: CTA - Cardiovascular Rhythm: regular Heart Sounds: Present: S1 & S2. Absent: gallop, rub - Extremities Extremities: no ischemia, No edema, Full ROM - Abdominal General gastrointestinal: soft, non-tender, non-distended, normal bowel sounds - Integumentary Integumentary: Present: clear, warm, dry - Neurologic Neurologic: CNII-XII intact, moves all extremities Results - Labs CBC & Chem 7: 03/25/19 05:48 03/25/19 05:48 Labs: Laboratory Last Values WBC 6.5 K/mm3 (4.5-11.0) 03/25/19 05:48 RBC 3.38 M/mm3 (3.65-5.03) L 03/25/19 05:48 Hgb 9.4 gm/dl (10.1-14.3) L 03/25/19 05:48 Hct 28.4 % (30.3-42.9) L 03/25/19 05:48 MCV 84 fl (79-97) 03/25/19 05:48 MCH 28 pg (28-32) 03/25/19 05:48 MCHC 33 % (30-34) 03/25/19 05:48 RDW 16.3 % (13.2-15.2) H 03/25/19 05:48 Plt Count 130 K/mm3 (140-440) L 03/25/19 05:48 Lymph % (Auto) 8.0 % (13.4-35.0) L 03/25/19 05:48 [place] % (Auto) 7.0 % (0.0-7.3) 03/25/19 05:48 Eos % (Auto) 0.1 % (0.0-4.3) 03/25/19 05:48 Baso % (Auto) 0.3 % (0.0-1.8) 03/25/19 05:48 Lymph # 0.5 K/mm3 (1.2-5.4) L 03/25/19 05:48 [place] # 0.5 K/mm3 (0.0-0.8) 03/25/19 05:48 Eos # 0.0 K/mm3 (0.0-0.4) 03/25/19 05:48 Baso # 0.0 K/mm3 (0.0-0.1) 03/25/19 05:48 Add Manual Diff Complete 03/24/19 04:14 Total Counted 100 03/24/19 04:14 Seg Neutrophils % 84.6 % (40.0-70.0) H 03/25/19 05:48 Seg Neuts % (Manual) 84.0 % (40.0-70.0) H 03/24/19 04:14 0 % 03/24/19 04:14 16.0 % (13.4-35.0) 03/24/19 04:14 Reactive Lymphs % (Man) 0 % 03/24/19 04:14 0 % (0.0-7.3) 03/24/19 04:14 0 % (0.0-4.3) 03/24/19 04:14 0 % (0.0-1.8) 03/24/19 04:14 0 % 03/24/19 04:14 0 % 03/24/19 04:14 0 % 03/24/19 04:14 0 % 03/24/19 04:14 Nucleated RBC % Not Reportable 03/24/19 04:14 Seg Neutrophils # 5.5 K/mm3 (1.8-7.7) 03/25/19 05:48 Seg Neutrophils # Man 1.8 K/mm3 (1.8-7.7) 03/24/19 04:14 Band Neutrophils # 0.0 K/mm3 03/24/19 04:14 0.4 K/mm3 (1.2-5.4) L 03/24/19 04:14 Abs React Lymphs (Man) 0.0 K/mm3 03/24/19 04:14 0.0 K/mm3 (0.0-0.8) 03/24/19 04:14 0.0 K/mm3 (0.0-0.4) 03/24/19 04:14 0.0 K/mm3 (0.0-0.1) 03/24/19 04:14 0.0 K/mm3 03/24/19 04:14 0.0 K/mm3 03/24/19 04:14 0.0 K/mm3 03/24/19 04:14 Blast Cells # 0.0 K/mm3 03/24/19 04:14 WBC Morphology Not Reportable 03/24/19 04:14 Hypersegmented Neuts Not Reportable 03/24/19 04:14 Hyposegmented Neuts Not Reportable 03/24/19 04:14 Hypogranular Neuts Not Reportable 03/24/19 04:14 Not Reportable 03/24/19 04:14 Not Reportable 03/24/19 04:14 Not Reportable 03/24/19 04:14 Not Reportable 03/24/19 04:14 Not Reportable 03/24/19 04:14 Not Reportable 03/24/19 04:14 Consistent w auto 03/24/19 04:14 Not Reportable 03/24/19 04:14 Plt Clumps, EDTA Not Reportable 03/24/19 04:14 Not Reportable 03/24/19 04:14 Not Reportable 03/24/19 04:14 Not Reportable 03/24/19 04:14 Plt Morphology Comment Not Reportable 03/24/19 04:14 RBC Morphology Not Reportable 03/24/19 04:14 Dimorphic RBCs Not Reportable 03/24/19 04:14 Not Reportable 03/24/19 04:14 Not Reportable 03/24/19 04:14 Not Reportable 03/24/19 04:14 1+ 03/24/19 04:14 Not Reportable 03/24/19 04:14 Not Reportable 03/24/19 04:14 Not Reportable 03/24/19 04:14 Not Reportable 03/24/19 04:14 Not Reportable 03/24/19 04:14 Not Reportable 03/24/19 04:14 Not Reportable 03/24/19 04:14 Not Reportable 03/24/19 04:14 Not Reportable 03/24/19 04:14 Not Reportable 03/24/19 04:14 Not Reportable 03/24/19 04:14 Not Reportable 03/24/19 04:14 Not Reportable 03/24/19 04:14 Not Reportable 03/24/19 04:14 1+ 03/24/19 04:14 Acanthocytes (Spur) Not Reportable 03/24/19 04:14 Rouleaux Not Reportable 03/24/19 04:14 Not Reportable 03/24/19 04:14 Not Reportable 03/24/19 04:14 Not Reportable 03/24/19 04:14 Not Reportable 03/24/19 04:14 Hem Pathologist Commnt No 03/24/19 04:14 VBG pH 7.441 (7.320-7.420) H 03/23/19 16:39 Sodium 140 mmol/L (137-145) 03/25/19 05:48 Potassium 3.8 mmol/L (3.6-5.0) 03/25/19 05:48 Chloride 101.5 mmol/L (98-107) 03/25/19 05:48 Carbon Dioxide 22 mmol/L (22-30) 03/25/19 05:48 20 mmol/L 03/25/19 05:48 BUN 20 mg/dL (7-17) H 03/25/19 05:48 0.8 mg/dL (0.7-1.2) 03/25/19 05:48 Estimated GFR > 60 ml/min 03/25/19 05:48 25 % 03/25/19 05:48 Glucose 167 mg/dL (65-100) H 03/25/19 05:48 POC Glucose 89 (70-105) 03/26/19 07:11 Lactic Acid 1.00 mmol/L (0.7-2.0) 03/23/19 16:39 Calcium 8.8 mg/dL (8.4-10.2) 03/25/19 05:48 Magnesium 2.40 mg/dL (1.7-2.3) H 03/23/19 19:36 50 units/L (30-135) 03/23/19 16:39 CK-MB (CK-2) 1.9 ng/mL (0.0-4.0) 03/23/19 16:39 CK-MB (CK-2) Rel Index 3.8 (0-4) 03/23/19 16:39 < 0.010 ng/mL (0.00-0.029) 03/24/19 00:24 NT-Pro-B Natriuret Pep 2586 pg/mL (0-900) H 03/23/19 15:56 Triglycerides 102 mg/dL (2-149) 03/23/19 18:29 Cholesterol 140 mg/dL (50-199) 03/23/19 18:29 93 mg/dL (50-130) 03/23/19 18:29 42 mg/dL (40-59) 03/23/19 18:29 3.33 % 03/23/19 18:29 TSH 1.200 mlU/mL (0.270-4.200) 03/23/19 19:36 Free T4 1.07 ng/dL (0.76-1.46) 03/23/19 19:36 Free T4 1.08 ng/dL (0.76-1.46) 03/23/19 19:36 Active Medications - Current Medications Current Medications: Generic Name Dose Route Start Last Admin Trade Name Freq PRN Reason Stop Dose Admin Acetaminophen 650 mg 03/23/19 18:21 03/25/19 08:44 Tylenol PO 650 mg Q4H PRN Administration Pain MILD(1-3)/Fever >100.5/PARISI Albuterol 2.5 mg 03/23/19 18:21 Proventil IH Q4HRT PRN Shortness Of Breath Clonazepam 0.5 mg 03/24/19 10:00 03/25/19 09:09 Klonopin PO 0.5 mg DAILY ANGIE Administration Dabigatran 150 mg 03/25/19 22:00 03/25/19 21:43 Pradaxa PO 150 mg BID ANGIE Administration Protocol Diltiazem HCl 240 mg 03/24/19 10:00 03/25/19 09:09 Cardizem Cd PO 240 mg DAILY ANGIE Administration Famotidine 10 mg 03/23/19 22:00 03/25/19 21:43 Pepcid PO 10 mg BID ANGIE Administration Ferrous Sulfate 325 mg 03/24/19 10:00 03/25/19 09:09 Feosol PO 325 mg QDAY ANGIE Administration Furosemide 40 mg 03/24/19 10:00 03/25/19 09:10 Lasix PO 40 mg QDAY ANGIE Administration Hydralazine HCl 25 mg 03/23/19 22:00 03/26/19 05:32 Apresoline PO 25 mg Q8HR ANGIE Administration Hydralazine HCl 10 mg 03/25/19 03:20 03/25/19 03:33 Apresoline IV 10 mg Q4H PRN Administration Hypertension Hydromorphone HCl 0.25 mg 03/23/19 18:21 03/23/19 19:02 Dilaudid IV 0.25 mg Q3H PRN Administration Pain, Moderate (4-6) Isosorbide Mononitrate 30 mg 03/24/19 10:00 03/25/19 09:10 Imdur PO Not Given QDAY ANGIE Loratadine 10 mg 03/24/19 10:00 03/25/19 09:09 Claritin PO 10 mg DAILY ANGIE Administration Miscellaneous Medication 2 each 03/26/19 10:00 Non-Formulary PO QDAY ANGIE Ondansetron HCl 4 mg 03/23/19 18:21 03/25/19 08:38 Zofran IV 4 mg Q8H PRN Administration Nausea And Vomiting Sertraline HCl 50 mg 03/24/19 10:00 03/25/19 09:09 Zoloft PO 50 mg QDAY ANGIE Administration Sodium Chloride 10 ml 03/23/19 22:00 03/25/19 21:43 Sodium Chloride Flush Syringe 10 Ml IV 10 ml BID ANGIE Administration Sodium Chloride 10 ml 03/23/19 18:21 Sodium Chloride Flush Syringe 10 Ml IV PRN PRN LINE FLUSH Sodium Chloride 10 ml 03/23/19 18:21 Sodium Chloride Flush Syringe 10 Ml IV PRN PRN LINE FLUSH Valsartan 160 mg 03/24/19 10:00 03/25/19 09:10 Diovan PO Not Given QDAY ANGIE Zolpidem Tartrate 5 mg 03/23/19 22:00 03/25/19 21:42 Ambien PO 5 mg QHS ANGIE Administration
[2019-03-26] MEDS: FEOSOL PO SCH (10:40)
[2019-03-26] MEDS: LASIX PO SCH ×2 (10:40→22:10)
[2019-03-26] MEDS: IMDUR PO SCH (10:40)
[2019-03-26] MEDS: PRADAXA PO SCH ×2 (10:40→22:10)
[2019-03-26] MEDS: CARDIZEM CD PO SCH (10:41)
[2019-03-26] MEDS: PEPCID PO SCH ×2 (10:41→22:10)
[2019-03-26] MEDS: NON-FORMULARY PO SCH (10:41)
[2019-03-26] MEDS: SODIUM CHLORIDE FLUSH SYRINGE 10 ML IV SCH ×2 (10:42→22:13)
[2019-03-26] MEDS: ZOLOFT PO SCH (10:44)
[2019-03-26] MEDS: DIOVAN PO SCH (10:51)
[2019-03-26] MEDS: CLARITIN PO SCH (10:51)
--- NOTE | 2019-03-26 13:22 | Progress Note ---
Assessment and Plan Patient has known severe pulmonary hypertension (follows Dr. Foster) and and h/o CAD s/p PCI. She presented to our office on 03/23/2019 with SOB on minimal exertion, orthopnea and chest pressure and was referred to [facility] for further eval. She underwent lexiscan MPI stress test on 03/24 which was unremarkable. Echo showed EF 55-60%, abnormal diastolic function, RV mild to mod dilated, RV systolic function mildly reduced, mod TR, severe pulm HTN with RVSP 121mmHg. Pt was seen by Dr. Dhillon at [place] in 01/2018. She underwent RHC at that time which showed mean right atrial pressure 17 mmHg, the pulmonary artery pressure 120/41 mmHg with a mean value of 67.3 mmHg, and the pulmonary artery wedge pressure 32 mmHg. The Lidya and thermaldilution cardiac indices were 2.53 and 3.00 L/min/m2, respectively. The calculated pulmonary vascular resistance was 5.80 Wood units. V/Q scan was normal. These hemodynamics showed a moderately elevated right heart filling pressure, a severely elevated left heart filling pressure, severe pulmonary hypertension and a moderately elevated pulmonary vascular resistance. Per Dr. Dhillon, "these findings were c/w a diagnosis of pulmonary hypertension due to left heart disease. Given this hemodynamic profile, she is not a candidate for any additional pulmonary arterial hypertensoin therapy. It is unclear what to do with her tadalafil but I have elected to continue it for now. I may discontinue it in the future. For now, our management will focus on addressing her fluid overload." Will increase lasix to 40mg BID. Cont all other present cardiac management. Recommend pulmonary consultation per primary. D/w Dr. Hendrickson. The patient has been seen in conjunction with Dr. Bentley who agrees with the assessment and plan of care. - Patient Problems (1) Moderate to severe pulmonary hypertension Current Visit: No Status: Chronic (2) Acute on chronic respiratory failure Current Visit: Yes Status: Acute (3) Acute on chronic heart failure with preserved ejection fraction Current Visit: Yes Status: Acute (4) CAD (coronary artery disease) Current Visit: Yes Status: Chronic Qualifiers: Coronary Disease-Associated Artery/Lesion type: unspecified vessel or lesion type [place] vs. transplanted heart: [place] heart Associated angina: angina presence unspecified Qualified Code(s): I25.10 - Atherosclerotic heart disease of [place] coronary artery without angina pectoris (5) Stented coronary artery Current Visit: Yes Status: Chronic (6) Chronic atrial fibrillation Current Visit: Yes Status: Chronic (7) HTN (hypertension) Current Visit: Yes Status: Chronic Qualifiers: Hypertension type: essential hypertension Qualified Code(s): I10 - Essential (primary) hypertension (8) Diabetes Current Visit: Yes Status: Chronic (9) Hyperlipemia Current Visit: Yes Status: Chronic (10) LBBB (left bundle branch block) Current Visit: Yes Status: Chronic (11) Sleep apnea Current Visit: Yes Status: Chronic Subjective Date of service: 03/26/19 Principal diagnosis: SOB Interval history: pt resting in bed, on BiPAP. still with SOB. in AFib with CVR on tele. Objective Last Vital Signs Temp 98.0 F 03/26/19 07:22 Pulse 55 L 03/26/19 08:31 Resp 18 03/26/19 08:31 BP 145/57 03/26/19 07:22 Pulse Ox 97 03/26/19 07:22 - Physical Examination General: Other (on BiPAP) Neck: Positive: trachea midline Cardiac: Positive: irregularly irregular, S1/S2 Lungs: Positive: Decreased Breath Sounds Neuro: Positive: Grossly Intact Abdomen: Positive: Unremarkable Skin: Negative: Rash Extremities: Absent: edema
[2019-03-26] MEDS: AMBIEN PO SCH (22:10)
[2019-03-27] MEDS: APRESOLINE PO SCH ×3 (05:52→21:56)
[2019-03-27] MEDS: PEPCID PO SCH ×2 (10:02→21:56)
[2019-03-27] MEDS: CLARITIN PO SCH (10:02)
[2019-03-27] MEDS: FEOSOL PO SCH (10:02)
[2019-03-27] MEDS: NON-FORMULARY PO SCH (10:02)
[2019-03-27] MEDS: ZOLOFT PO SCH (10:03)
[2019-03-27] MEDS: LASIX PO SCH (10:03)
[2019-03-27] MEDS: CARDIZEM CD PO SCH (10:03)
[2019-03-27] MEDS: PRADAXA PO SCH ×2 (10:03→21:56)
[2019-03-27] MEDS: IMDUR PO SCH (10:04)
[2019-03-27] MEDS: DIOVAN PO SCH (10:04)
[2019-03-27] MEDS: SODIUM CHLORIDE FLUSH SYRINGE 10 ML IV SCH ×2 (10:05→21:57)
--- NOTE | 2019-03-27 10:55 | Progress Note ---
Assessment and Plan Cont present cardiac management. Await pulmonary consultation. The patient has been seen in conjunction with Dr. Bentley who agrees with the assessment and plan of care. - Patient Problems (1) Moderate to severe pulmonary hypertension Current Visit: No Status: Chronic (2) Acute on chronic respiratory failure Current Visit: Yes Status: Acute (3) Acute on chronic heart failure with preserved ejection fraction Current Visit: Yes Status: Acute (4) CAD (coronary artery disease) Current Visit: Yes Status: Chronic Qualifiers: Coronary Disease-Associated Artery/Lesion type: unspecified vessel or lesion type [place] vs. transplanted heart: [place] heart Associated angina: angina presence unspecified Qualified Code(s): I25.10 - Atherosclerotic heart disease of [place] coronary artery without angina pectoris (5) Stented coronary artery Current Visit: Yes Status: Chronic (6) Chronic atrial fibrillation Current Visit: Yes Status: Chronic (7) HTN (hypertension) Current Visit: Yes Status: Chronic Qualifiers: Hypertension type: essential hypertension Qualified Code(s): I10 - Essential (primary) hypertension (8) Diabetes Current Visit: Yes Status: Chronic (9) Hyperlipemia Current Visit: Yes Status: Chronic (10) LBBB (left bundle branch block) Current Visit: Yes Status: Chronic (11) Sleep apnea Current Visit: Yes Status: Chronic Subjective Date of service: 03/27/19 Principal diagnosis: SOB Interval history: pt resting in bed, still with SOB. in AFib with CVR on tele. Objective Last Vital Signs Temp 97.9 F 03/27/19 08:52 Pulse 72 03/27/19 10:04 Resp 20 03/27/19 10:00 BP 155/58 03/27/19 10:04 Pulse Ox 100 03/27/19 10:00 - Physical Examination General: No Apparent Distress Neck: Positive: trachea midline Cardiac: Positive: Reg Rate and Rhythm, S1/S2 Neuro: Positive: Grossly Intact Abdomen: Positive: Unremarkable Skin: Negative: Rash Extremities: Absent: edema - Telemetry EKG Rhythm: Atrial Fibrillation
[2019-03-27] MEDS ORDERED: LASIX IV ONE (15:42)
--- NOTE | 2019-03-27 15:47 | Consultation ---
History of Present Illness Consult date: 03/27/19 Requesting physician: DRISS HERNANDEZ Reason for consult: hypoxemia, pulmonary hypertension History of present illness: 73 y/o female with known pulmonary hypertension admitted on 03/23 with shortness of breath. Patient used to follow my partner Cristian but has not seen him for several years. She has been getting her care at [place] by A Dr. Dhillon. Cardiology was able to find RHC results that showed severe pulmonary hypertension but also elevated left sided pressures. Per patient she was on a diuretic at home but no oxygen therapy. She also cannot tell you the last time she saw Dr. Dhillon. Remainder of the review is negative. Past History Past Medical History: atrial fib, arthritis, CAD, diabetes, heart failure, stroke, other (Pulmonary Hypertension,) Past Surgical History: appendectomy, cholecystectomy, CABG, hernia repair, total knee replacement, Other (Ankle surgery) Social history: . denies: smoking, alcohol abuse, prescription drug abuse Family history: CAD, diabetes, hypertension Medications and Allergies Allergies Allergy/AdvReac Type Severity Reaction Status Date / Time Penicillins Allergy Severe Swelling Verified 11/11/14 17:37 codeine AdvReac Nausea Verified 11/11/14 17:37 hydrocodone AdvReac Nausea Verified 11/11/14 17:37 Home Medications Medication Instructions Recorded Confirmed Last Taken Type Valsartan [Diovan] 160 mg PO QDAY 01/31/14 03/23/19 06/21/18 08:00 History Cetirizine HCl [ZyrTEC 10mg cap] 10 mg PO DAILY 11/11/14 03/23/19 06/21/18 08:00 History Tadalafil (Nf) [Adcirca (Nf)] 40 mg PO BID 11/11/14 03/23/19 06/21/18 08:00 History Sitagliptin Phos/Metformin HCl 1 tab PO BID 06/10/16 03/23/19 06/21/18 08:00 History [Janumet 50-1,000 mg] clonazePAM [KlonoPIN] 0.5 mg PO DAILY 09/15/16 03/23/19 06/21/18 08:00 History Dabigatran Etexilate Mesylate 150 mg PO BID 06/21/18 03/23/19 06/21/18 08:00 History [Pradaxa] Diltiazem HCl [Diltiazem 24Hr ER] 240 mg PO DAILY 06/21/18 03/23/19 06/21/18 08:00 History Ferrous Sulfate [Feosol 325 MG tab] 325 mg PO QDAY 06/21/18 03/23/19 06/21/18 08:00 History Furosemide [Lasix TAB] 40 mg PO BID 06/21/18 03/23/19 06/21/18 08:00 History Zolpidem [Ambien] 5 mg PO QHS 06/21/18 03/23/19 06/20/18 21:00 History Gabapentin [Neurontin] 800 mg PO BID 03/23/19 03/23/19 Unknown History Active Meds: Active Medications Acetaminophen (Tylenol) 650 mg PO Q4H PRN PRN Reason: Pain MILD(1-3)/Fever >100.5/PARISI Last Admin: 03/25/19 08:44 Dose: 650 mg Documented by: Albuterol (Proventil) 2.5 mg IH Q4HRT PRN PRN Reason: Shortness Of Breath Clonazepam (Klonopin) 0.5 mg PO DAILY [facility] Last Admin: 03/27/19 10:02 Dose: 0.5 mg Documented by: Dabigatran (Pradaxa) 150 mg PO BID [facility]; Protocol Last Admin: 03/27/19 10:03 Dose: 150 mg Documented by: Diltiazem HCl (Cardizem Cd) 240 mg PO DAILY [facility] Last Admin: 03/27/19 10:03 Dose: 240 mg Documented by: Famotidine (Pepcid) 10 mg PO BID [facility] Last Admin: 03/27/19 10:02 Dose: 10 mg Documented by: Ferrous Sulfate (Feosol) 325 mg PO QDAY [facility] Last Admin: 03/27/19 10:02 Dose: 325 mg Documented by: Furosemide (Lasix) 40 mg IV ONCE ONE Stop: 03/27/19 15:43 Hydralazine HCl (Apresoline) 25 mg PO Q8HR [facility] Last Admin: 03/27/19 05:52 Dose: 25 mg Documented by: Hydralazine HCl (Apresoline) 10 mg IV Q4H PRN PRN Reason: Hypertension Last Admin: 03/25/19 03:33 Dose: 10 mg Documented by: Hydromorphone HCl (Dilaudid) 0.25 mg IV Q3H PRN PRN Reason: Pain, Moderate (4-6) Last Admin: 03/23/19 19:02 Dose: 0.25 mg Documented by: Isosorbide Mononitrate (Imdur) 30 mg PO QDAY [facility] Last Admin: 03/27/19 10:04 Dose: 30 mg Documented by: Loratadine (Claritin) 10 mg PO DAILY [facility] Last Admin: 03/27/19 10:02 Dose: 10 mg Documented by: Miscellaneous Medication (Non-Formulary) 2 each PO QDAY [facility] Last Admin: 03/27/19 10:02 Dose: 2 each Documented by: Ondansetron HCl (Zofran) 4 mg IV Q8H PRN PRN Reason: Nausea And Vomiting Last Admin: 03/25/19 08:38 Dose: 4 mg Documented by: Sertraline HCl (Zoloft) 50 mg PO QDAY [facility] Last Admin: 03/27/19 10:03 Dose: 50 mg Documented by: Sodium Chloride (Sodium Chloride Flush Syringe 10 Ml) 10 ml IV BID [facility] Last Admin: 03/27/19 10:05 Dose: 10 ml Documented by: Sodium Chloride (Sodium Chloride Flush Syringe 10 Ml) 10 ml IV PRN PRN PRN Reason: LINE FLUSH Valsartan (Diovan) 160 mg PO QDAY [facility] Last Admin: 03/27/19 10:04 Dose: 160 mg Documented by: Zolpidem Tartrate (Ambien) 5 mg PO QHS [facility] Last Admin: 03/26/19 22:10 Dose: 5 mg Documented by: Review of Systems All systems: negative Physical Examination Vital signs: Vital Signs Pulse Resp 72 19 03/23/19 15:50 03/23/19 15:50 Results - Laboratory Findings CBC and BMP: 03/25/19 05:48 03/25/19 05:48 Abnormal lab findings: Abnormal Labs 03/23/19 03/23/19 03/23/19 15:56 15:56 15:56 WBC 4.1 L RBC 3.41 L Hgb 9.5 L Hct 28.4 L RDW 16.3 H Plt Count 136 L Lymph % (Auto) Lymph # Seg Neutrophils % Seg Neuts % (Manual) Lymphocytes # (Manual) VBG pH BUN Glucose 109 H POC Glucose Magnesium NT-Pro-B Natriuret Pep 2586 H 05/17/19 05/17/19 05/17/19 16:39 19:36 19:48 WBC RBC Hgb Hct RDW Plt Count Lymph % (Auto) Lymph # Seg Neutrophils % Seg Neuts % (Manual) Lymphocytes # (Manual) VBG pH 7.441 H BUN Glucose POC Glucose 170 H Magnesium 2.40 H NT-Pro-B Natriuret Pep 03/24/19 03/24/19 03/24/19 04:14 04:14 07:27 WBC 2.2 L RBC 3.43 L Hgb 9.5 L Hct 29.0 L RDW 16.6 H Plt Count 112 L Lymph % (Auto) Lymph # Seg Neutrophils % Seg Neuts % (Manual) 84.0 H Lymphocytes # (Manual) 0.4 L VBG pH BUN 19 H Glucose 278 H POC Glucose 193 H Magnesium NT-Pro-B Natriuret Pep 03/24/19 03/24/19 03/25/19 15:18 20:49 05:48 WBC RBC 3.38 L Hgb 9.4 L Hct 28.4 L RDW 16.3 H Plt Count 130 L Lymph % (Auto) 8.0 L Lymph # 0.5 L Seg Neutrophils % 84.6 H Seg Neuts % (Manual) Lymphocytes # (Manual) VBG pH BUN Glucose POC Glucose 214 H 170 H Magnesium NT-Pro-B Natriuret Pep 03/25/19 03/25/19 03/25/19 05:48 08:14 12:06 WBC RBC Hgb Hct RDW Plt Count Lymph % (Auto) Lymph # Seg Neutrophils % Seg Neuts % (Manual) Lymphocytes # (Manual) VBG pH BUN 20 H Glucose 167 H POC Glucose 153 H 108 H Magnesium NT-Pro-B Natriuret Pep 03/25/19 03/26/19 03/26/19 21:16 11:16 22:09 WBC RBC Hgb Hct RDW Plt Count Lymph % (Auto) Lymph # Seg Neutrophils % Seg Neuts % (Manual) Lymphocytes # (Manual) VBG pH BUN Glucose POC Glucose 111 H 130 H 154 H Magnesium NT-Pro-B Natriuret Pep 03/27/19 08:58 WBC RBC Hgb Hct RDW Plt Count Lymph % (Auto) Lymph # Seg Neutrophils % Seg Neuts % (Manual) Lymphocytes # (Manual) VBG pH BUN Glucose POC Glucose 135 H Magnesium NT-Pro-B Natriuret Pep - Diagnostic Findings Chest x-ray: image reviewed (severe cardiomegaly with some pulmonary vascular congestion.) Assessment and Plan 73 y/o female with severe pulmonary hypertension. 1. Will change lasix to IV therapy BID and give a dose now 2. If oxygen requirement does not improve, may need to consider lasix drip which would likely have to be done in the step down 3. Agree that she does not need PDE5 inhibitor at this time 4. Need to obtain [place] records (i.e. notes from pulmonary regarding their plan for management) 5. Wean oxygen for sats >88%
--- NOTE | 2019-03-27 16:25 | Progress Note ---
Assessment and Plan Assessment and plan: Patient is a 73-year-old female with past medical history significant for diastolic CHF, pulmonary hypertension, A. fib, CAD, diabetes presented to the emergency department with shortness of breath. No new issues overnight. --Acute hypoxic respiratory failure. Etiology is multifactorial secondary to diastolic heart failure, severe pulmonary hypertension, MARY ELLEN/OHS. Continue O2 for supportive care and BiPAP as clinically indicated. Patient will need ambulation/oxygen fit test prior to discharge. Patient will likely need home O2. --Acute on chronic diastolic CHF :Continue the anti-failure medications, cardiology following Echocardiogram this admission reveals global left ventricular wall motion and contractility within normal limits with severely dilated left atrium. Left ventricular diastolic function normal. Right ventricle is mild to moderately dilated with right ventricular global systolic function mildly reduced right ventricular systolic pressure is calculated at 121 mmHg--severe pulmonary --Severe pulmonary hypertension. RVSP of 121 mm Hg on echo done this hospitalization. Cardiology feels that patient may need repeat right heart catheterization. Will hold Pradaxa. --Chest pain. LExiscan stress test was unremarkable. --A. fib, rate controlled. Continue current medications. Pradaxa restarted. --Diabetes mellitus type 2. Continue Accu-Cheks and sliding scale insulin. --Hypertension. Continue antihypertensive medications. --CAD. Per cardiology. IV LExiscan MPI was unremarkable, --DVT prophylaxis. Patient is on pradaxa Disposition. continue inpatient care, ?Home O2 based on fit test results and await PT evaluation. We will discuss with case management. increase iv lasix History Interval history: Patient was seen and examined. Follow-up on current diagnosis of pulmonary hypertension, sob. No overnight events reported to me. Patient denies any chest pain, nausea/vomiting or severe headaches. Imaging, nursing note, chart, labs and old chart reviewed. Discussed with patient. Currently on [facility] Hospitalist Physical - Physical exam Narrative exam: Gen: WDWN, NAD, Awake, Alert, Orientated HEENT: NCAT, EOMI, PERRL, OP Clear Neck: supple, no adenopathy, no thyromegaly, no JVD CVS/Heart: irregular irregular, normal S1S2, pulses present bilaterally Chest/Lungs: diminished and bilateral crackles bilateral Symmetrical chest expansion, good air entry bilaterally GI/Abdomen: soft, NTND, good bowel sounds, no guarding or rebound /Bladder: no suprapubic tenderness, no CVA or paraspinal tenderness Extermity/Skin: no obvious rash MSK: FROM x 4 Neuro: CN 2-12 grossly intact, no new focal deficits Psych: calm - Constitutional Vitals: Temp Pulse Resp BP Pulse Ox 97.9 F 16 L 20 119/54 98 03/27/19 08:52 03/27/19 14:13 03/27/19 10:00 03/27/19 14:13 03/27/19 11:54 General appearance: Present: no acute distress Results - Labs CBC & Chem 7: 03/25/19 05:48 03/28/19 06:18 Labs: Laboratory Last Values WBC 6.5 K/mm3 (4.5-11.0) 03/25/19 05:48 RBC 3.38 M/mm3 (3.65-5.03) L 03/25/19 05:48 Hgb 9.4 gm/dl (10.1-14.3) L 03/25/19 05:48 Hct 28.4 % (30.3-42.9) L 03/25/19 05:48 MCV 84 fl (79-97) 03/25/19 05:48 MCH 28 pg (28-32) 03/25/19 05:48 MCHC 33 % (30-34) 03/25/19 05:48 RDW 16.3 % (13.2-15.2) H 03/25/19 05:48 Plt Count 130 K/mm3 (140-440) L 03/25/19 05:48 Lymph % (Auto) 8.0 % (13.4-35.0) L 03/25/19 05:48 Tucker % (Auto) 7.0 % (0.0-7.3) 03/25/19 05:48 Eos % (Auto) 0.1 % (0.0-4.3) 03/25/19 05:48 Baso % (Auto) 0.3 % (0.0-1.8) 03/25/19 05:48 Lymph # 0.5 K/mm3 (1.2-5.4) L 03/25/19 05:48 Tucker # 0.5 K/mm3 (0.0-0.8) 03/25/19 05:48 Eos # 0.0 K/mm3 (0.0-0.4) 03/25/19 05:48 Baso # 0.0 K/mm3 (0.0-0.1) 03/25/19 05:48 Add Manual Diff Complete 03/24/19 04:14 Total Counted 100 03/24/19 04:14 Seg Neutrophils % 84.6 % (40.0-70.0) H 03/25/19 05:48 Seg Neuts % (Manual) 84.0 % (40.0-70.0) H 03/24/19 04:14 0 % 03/24/19 04:14 16.0 % (13.4-35.0) 03/24/19 04:14 Reactive Lymphs % (Man) 0 % 03/24/19 04:14 0 % (0.0-7.3) 03/24/19 04:14 0 % (0.0-4.3) 03/24/19 04:14 0 % (0.0-1.8) 03/24/19 04:14 0 % 03/24/19 04:14 0 % 03/24/19 04:14 0 % 03/24/19 04:14 0 % 03/24/19 04:14 Nucleated RBC % Not Reportable 03/24/19 04:14 Seg Neutrophils # 5.5 K/mm3 (1.8-7.7) 03/25/19 05:48 Seg Neutrophils # Man 1.8 K/mm3 (1.8-7.7) 03/24/19 04:14 Band Neutrophils # 0.0 K/mm3 03/24/19 04:14 0.4 K/mm3 (1.2-5.4) L 03/24/19 04:14 Abs React Lymphs (Man) 0.0 K/mm3 03/24/19 04:14 0.0 K/mm3 (0.0-0.8) 03/24/19 04:14 0.0 K/mm3 (0.0-0.4) 03/24/19 04:14 0.0 K/mm3 (0.0-0.1) 03/24/19 04:14 0.0 K/mm3 03/24/19 04:14 0.0 K/mm3 03/24/19 04:14 0.0 K/mm3 03/24/19 04:14 Blast Cells # 0.0 K/mm3 03/24/19 04:14 WBC Morphology Not Reportable 03/24/19 04:14 Hypersegmented Neuts Not Reportable 03/24/19 04:14 Hyposegmented Neuts Not Reportable 03/24/19 04:14 Hypogranular Neuts Not Reportable 03/24/19 04:14 Not Reportable 03/24/19 04:14 Not Reportable 03/24/19 04:14 Not Reportable 03/24/19 04:14 Not Reportable 03/24/19 04:14 Not Reportable 03/24/19 04:14 Not Reportable 03/24/19 04:14 Consistent w auto 03/24/19 04:14 Not Reportable 03/24/19 04:14 Plt Clumps, EDTA Not Reportable 03/24/19 04:14 Not Reportable 03/24/19 04:14 Not Reportable 03/24/19 04:14 Not Reportable 03/24/19 04:14 Plt Morphology Comment Not Reportable 03/24/19 04:14 RBC Morphology Not Reportable 03/24/19 04:14 Dimorphic RBCs Not Reportable 03/24/19 04:14 Not Reportable 03/24/19 04:14 Not Reportable 03/24/19 04:14 Not Reportable 03/24/19 04:14 1+ 03/24/19 04:14 Not Reportable 03/24/19 04:14 Not Reportable 03/24/19 04:14 Not Reportable 03/24/19 04:14 Not Reportable 03/24/19 04:14 Not Reportable 03/24/19 04:14 Not Reportable 03/24/19 04:14 Not Reportable 03/24/19 04:14 Not Reportable 03/24/19 04:14 Not Reportable 03/24/19 04:14 Not Reportable 03/24/19 04:14 Not Reportable 03/24/19 04:14 Not Reportable 03/24/19 04:14 Not Reportable 03/24/19 04:14 Not Reportable 03/24/19 04:14 1+ 03/24/19 04:14 Acanthocytes (Spur) Not Reportable 03/24/19 04:14 Rouleaux Not Reportable 03/24/19 04:14 Not Reportable 03/24/19 04:14 Not Reportable 03/24/19 04:14 Not Reportable 03/24/19 04:14 Not Reportable 03/24/19 04:14 Hem Pathologist Commnt No 03/24/19 04:14 VBG pH 7.441 (7.320-7.420) H 03/23/19 16:39 Sodium 140 mmol/L (137-145) 03/25/19 05:48 Potassium 3.8 mmol/L (3.6-5.0) 03/25/19 05:48 Chloride 101.5 mmol/L (98-107) 03/25/19 05:48 Carbon Dioxide 22 mmol/L (22-30) 03/25/19 05:48 20 mmol/L 03/25/19 05:48 BUN 20 mg/dL (7-17) H 03/25/19 05:48 0.8 mg/dL (0.7-1.2) 03/25/19 05:48 Estimated GFR > 60 ml/min 03/25/19 05:48 25 % 03/25/19 05:48 Glucose 167 mg/dL (65-100) H 03/25/19 05:48 POC Glucose 135 (70-105) H 03/27/19 08:58 Lactic Acid 1.00 mmol/L (0.7-2.0) 03/23/19 16:39 Calcium 8.8 mg/dL (8.4-10.2) 03/25/19 05:48 Magnesium 2.40 mg/dL (1.7-2.3) H 03/23/19 19:36 50 units/L (30-135) 03/23/19 16:39 CK-MB (CK-2) 1.9 ng/mL (0.0-4.0) 03/23/19 16:39 CK-MB (CK-2) Rel Index 3.8 (0-4) 03/23/19 16:39 < 0.010 ng/mL (0.00-0.029) 03/24/19 00:24 NT-Pro-B Natriuret Pep 2586 pg/mL (0-900) H 03/23/19 15:56 Triglycerides 102 mg/dL (2-149) 03/23/19 18:29 Cholesterol 140 mg/dL (50-199) 03/23/19 18:29 93 mg/dL (50-130) 03/23/19 18:29 42 mg/dL (40-59) 03/23/19 18:29 3.33 % 03/23/19 18:29 TSH 1.200 mlU/mL (0.270-4.200) 03/23/19 19:36 Free T4 1.07 ng/dL (0.76-1.46) 03/23/19 19:36 Free T4 1.08 ng/dL (0.76-1.46) 03/23/19 19:36 Active Medications - Current Medications Current Medications: Generic Name Dose Route Start Last Admin Trade Name Freq PRN Reason Stop Dose Admin Acetaminophen 650 mg 03/23/19 18:21 03/25/19 08:44 Tylenol PO 650 mg Q4H PRN Administration Pain MILD(1-3)/Fever >100.5/PARISI Albuterol 2.5 mg 03/23/19 18:21 Proventil IH Q4HRT PRN Shortness Of Breath Clonazepam 0.5 mg 03/24/19 10:00 03/27/19 10:02 Klonopin PO 0.5 mg DAILY ANGIE Administration Dabigatran 150 mg 03/25/19 22:00 03/27/19 10:03 Pradaxa PO 150 mg BID ANGIE Administration Protocol Diltiazem HCl 240 mg 03/24/19 10:00 03/27/19 10:03 Cardizem Cd PO 240 mg DAILY ANGIE Administration Famotidine 10 mg 03/23/19 22:00 03/27/19 10:02 Pepcid PO 10 mg BID ANGIE Administration Ferrous Sulfate 325 mg 03/24/19 10:00 03/27/19 10:02 Feosol PO 325 mg QDAY ANGIE Administration Furosemide 40 mg 03/28/19 06:00 Lasix IV 0600,1800 ANGIE Hydralazine HCl 25 mg 03/23/19 22:00 03/27/19 14:13 Apresoline PO Not Given Q8HR ANGIE Hydralazine HCl 10 mg 03/25/19 03:20 03/25/19 03:33 Apresoline IV 10 mg Q4H PRN Administration Hypertension Hydromorphone HCl 0.25 mg 03/23/19 18:21 03/23/19 19:02 Dilaudid IV 0.25 mg Q3H PRN Administration Pain, Moderate (4-6) Isosorbide Mononitrate 30 mg 03/24/19 10:00 03/27/19 10:04 Imdur PO 30 mg QDAY ANGIE Administration Loratadine 10 mg 03/24/19 10:00 03/27/19 10:02 Claritin PO 10 mg DAILY ANGIE Administration Miscellaneous Medication 2 each 03/26/19 10:00 03/27/19 10:02 Non-Formulary PO 2 each QDAY ANGIE Administration Ondansetron HCl 4 mg 03/23/19 18:21 03/25/19 08:38 Zofran IV 4 mg Q8H PRN Administration Nausea And Vomiting Sertraline HCl 50 mg 03/24/19 10:00 03/27/19 10:03 Zoloft PO 50 mg QDAY ANGIE Administration Sodium Chloride 10 ml 03/23/19 22:00 03/27/19 10:05 Sodium Chloride Flush Syringe 10 Ml IV 10 ml BID ANGIE Administration Sodium Chloride 10 ml 03/23/19 18:21 Sodium Chloride Flush Syringe 10 Ml IV PRN PRN LINE FLUSH Valsartan 160 mg 03/24/19 10:00 03/27/19 10:04 Diovan PO 160 mg QDAY ANGIE Administration Zolpidem Tartrate 5 mg 03/23/19 22:00 03/26/19 22:10 Ambien PO 5 mg QHS ANGIE Administration
[2019-03-27] MEDS: AMBIEN PO SCH (21:56)
[2019-03-28] MEDS ORDERED: LASIX IV SCH (06:00)
[2019-03-28] MEDS: APRESOLINE PO SCH (06:54)
[2019-03-28 07:36] LABS: BUN/Creatinine Ratio 22; Blood Urea Nitrogen 20 mg/dL (7-17); Calcium 8.9 mg/dL (8.4-10.2); Hemolysis Index 5
[2019-03-28] MEDS: PEPCID PO SCH (09:25)
[2019-03-28] MEDS: FEOSOL PO SCH (09:25)
[2019-03-28] MEDS: DIOVAN PO SCH (09:25)
[2019-03-28] MEDS: IMDUR PO SCH (09:25)
[2019-03-28] MEDS: ZOLOFT PO SCH (09:25)
[2019-03-28] MEDS: CARDIZEM CD PO SCH (09:25)
[2019-03-28] MEDS: PRADAXA PO SCH (09:25)
[2019-03-28] MEDS: SODIUM CHLORIDE FLUSH SYRINGE 10 ML IV SCH (09:26)
[2019-03-28] MEDS: NON-FORMULARY PO SCH (09:56)
[2019-03-28] MEDS: CLARITIN PO SCH (09:56)
--- NOTE | 2019-03-28 10:55 | Progress Note ---
Assessment and Plan Cont present cardiac management. Pulmonary input appreciated. Follow pulmonary recs. The patient has been seen in conjunction with Dr. Bentley who agrees with the assessment and plan of care. - Patient Problems (1) Moderate to severe pulmonary hypertension Current Visit: No Status: Chronic (2) Acute on chronic respiratory failure Current Visit: Yes Status: Acute (3) Acute on chronic heart failure with preserved ejection fraction Current Visit: Yes Status: Acute (4) CAD (coronary artery disease) Current Visit: Yes Status: Chronic Qualifiers: Coronary Disease-Associated Artery/Lesion type: unspecified vessel or lesion type [place] vs. transplanted heart: [place] heart Associated angina: angina presence unspecified Qualified Code(s): I25.10 - Atherosclerotic heart disease of [place] coronary artery without angina pectoris (5) Stented coronary artery Current Visit: Yes Status: Chronic (6) Chronic atrial fibrillation Current Visit: Yes Status: Chronic (7) HTN (hypertension) Current Visit: Yes Status: Chronic Qualifiers: Hypertension type: essential hypertension Qualified Code(s): I10 - Essential (primary) hypertension (8) Diabetes Current Visit: Yes Status: Chronic (9) Hyperlipemia Current Visit: Yes Status: Chronic (10) LBBB (left bundle branch block) Current Visit: Yes Status: Chronic (11) Sleep apnea Current Visit: Yes Status: Chronic Subjective Date of service: 03/28/19 Principal diagnosis: SOB Interval history: pt sitting up at bedside, states SOB is improving and she is feeling quite well today, on room air currently. in AFib with CVR on tele, some SVR noted overnight. Objective Last Vital Signs Temp 98.0 F 03/28/19 04:03 Pulse 54 L 03/28/19 00:03 Resp 20 03/28/19 00:03 BP 143/59 03/28/19 06:54 Pulse Ox 95 03/28/19 00:03 - Physical Examination General: No Apparent Distress Neck: Positive: trachea midline Cardiac: Positive: Irregularly Regular, S1/S2 Lungs: Positive: Decreased Breath Sounds Neuro: Positive: Grossly Intact Abdomen: Positive: Unremarkable Skin: Negative: Rash Extremities: Absent: edema - Labs and Meds Comprehensive Metabolic Panel 03/28/19 Range/Units 06:18 Sodium 142 (137-145) mmol/L Potassium 4.0 (3.6-5.0) mmol/L Chloride 100.7 (98-107) mmol/L Carbon Dioxide 26 (22-30) mmol/L BUN 20 H (7-17) mg/dL Creatinine 0.9 (0.7-1.2) mg/dL Glucose 139 H (65-100) mg/dL Calcium 8.9 (8.4-10.2) mg/dL
[2019-03-28 12:07] VITALS: BP 90/40
--- NOTE | 2019-03-28 14:05 | Progress Note ---
Assessment and Plan Assessment and plan: Patient is a 73-year-old female with past medical history significant for diastolic CHF, pulmonary hypertension, A. fib, CAD, diabetes presented to the emergency department with shortness of breath. --Acute hypoxic respiratory failure. Etiology is multifactorial secondary to diastolic heart failure, severe pulmonary hypertension, MARY ELLEN/OHS. Continue O2 for supportive care and BiPAP as clinically indicated. Patient will need ambulation/oxygen fit test prior to discharge. Patient will likely need home O2. --Acute on chronic diastolic CHF :Continue the anti-failure medications, cardiology following Echocardiogram this admission reveals global left ventricular wall motion and contractility within normal limits with severely dilated left atrium. Left ventricular diastolic function normal. Right ventricle is mild to moderately dilated with right ventricular global systolic function mildly reduced right ventricular systolic pressure is calculated at 121 mmHg--severe pulmonary --Severe pulmonary hypertension. RVSP of 121 mm Hg on echo done this hospitalization. Cardiology feels that patient may need repeat right heart catheterization. Will hold Pradaxa. --Chest pain. LExiscan stress test was unremarkable. --A. fib, rate controlled. Continue current medications. Pradaxa restarted. --Diabetes mellitus type 2. Continue Accu-Cheks and sliding scale insulin. --Hypertension. Continue antihypertensive medications. --CAD. Per cardiology. IV LExiscan MPI was unremarkable, --DVT prophylaxis. Patient is on pradaxa Disposition. continue inpatient care, ?Home O2 based on fit test results and await PT evaluation. We will discuss with case management. The increase iv lasix really did help, as she is off O2 and pulse ox is 94% on Room air. I have spoken with occupational therapist rehab manager, Dr. Salvador, ok to discharge on 40mg po lasix twice a day and return to pulmonary hypertension specialist at [place], Dr. Lane History Interval history: Patient was seen and examined. Follow-up on current diagnosis of pulmonary hypertension, sob. No overnight events reported to me. Patient denies any chest pain, nausea/vomiting or severe headaches. Imaging, nursing note, chart, labs and old chart reviewed. Discussed with patient. Currently off O2 Hospitalist Physical - Physical exam Narrative exam: Gen: WDWN, NAD, Awake, Alert, Orientated HEENT: NCAT, EOMI, PERRL, OP Clear Neck: supple, no adenopathy, no thyromegaly, no JVD CVS/Heart: irregular irregular, normal S1S2, pulses present bilaterally Chest/Lungs: diminished and bilateral crackles bilateral Symmetrical chest exp ansion, good air entry bilaterally GI/Abdomen: soft, NTND, good bowel sounds, no guarding or rebound /Bladder: no suprapubic tenderness, no CVA or paraspinal tenderness Extermity/Skin: no obvious rash MSK: FROM x 4 Neuro: CN 2-12 grossly intact, no new focal deficits Psych: calm - Constitutional Vitals: Temp Pulse Resp BP Pulse Ox 98.0 F 63 20 90/40 97 03/28/19 04:03 03/28/19 12:06 03/28/19 10:00 03/28/19 12:06 03/28/19 12:06 General appearance: Present: no acute distress Results - Labs CBC & Chem 7: 03/25/19 05:48 03/28/19 06:18 Labs: Laboratory Last Values WBC 6.5 K/mm3 (4.5-11.0) 03/25/19 05:48 RBC 3.38 M/mm3 (3.65-5.03) L 03/25/19 05:48 Hgb 9.4 gm/dl (10.1-14.3) L 03/25/19 05:48 Hct 28.4 % (30.3-42.9) L 03/25/19 05:48 MCV 84 fl (79-97) 03/25/19 05:48 MCH 28 pg (28-32) 03/25/19 05:48 MCHC 33 % (30-34) 03/25/19 05:48 RDW 16.3 % (13.2-15.2) H 03/25/19 05:48 Plt Count 130 K/mm3 (140-440) L 03/25/19 05:48 Lymph % (Auto) 8.0 % (13.4-35.0) L 03/25/19 05:48 Nuckolls % (Auto) 7.0 % (0.0-7.3) 03/25/19 05:48 Eos % (Auto) 0.1 % (0.0-4.3) 03/25/19 05:48 Baso % (Auto) 0.3 % (0.0-1.8) 03/25/19 05:48 Lymph # 0.5 K/mm3 (1.2-5.4) L 03/25/19 05:48 Nuckolls # 0.5 K/mm3 (0.0-0.8) 03/25/19 05:48 Eos # 0.0 K/mm3 (0.0-0.4) 03/25/19 05:48 Baso # 0.0 K/mm3 (0.0-0.1) 03/25/19 05:48 Add Manual Diff Complete 03/24/19 04:14 Total Counted 100 03/24/19 04:14 Seg Neutrophils % 84.6 % (40.0-70.0) H 03/25/19 05:48 Seg Neuts % (Manual) 84.0 % (40.0-70.0) H 03/24/19 04:14 0 % 03/24/19 04:14 16.0 % (13.4-35.0) 03/24/19 04:14 Reactive Lymphs % (Man) 0 % 03/24/19 04:14 0 % (0.0-7.3) 03/24/19 04:14 0 % (0.0-4.3) 03/24/19 04:14 0 % (0.0-1.8) 03/24/19 04:14 0 % 03/24/19 04:14 0 % 03/24/19 04:14 0 % 03/24/19 04:14 0 % 03/24/19 04:14 Nucleated RBC % Not Reportable 03/24/19 04:14 Seg Neutrophils # 5.5 K/mm3 (1.8-7.7) 03/25/19 05:48 Seg Neutrophils # Man 1.8 K/mm3 (1.8-7.7) 03/24/19 04:14 Band Neutrophils # 0.0 K/mm3 03/24/19 04:14 0.4 K/mm3 (1.2-5.4) L 03/24/19 04:14 Abs React Lymphs (Man) 0.0 K/mm3 03/24/19 04:14 0.0 K/mm3 (0.0-0.8) 03/24/19 04:14 0.0 K/mm3 (0.0-0.4) 03/24/19 04:14 0.0 K/mm3 (0.0-0.1) 03/24/19 04:14 0.0 K/mm3 03/24/19 04:14 0.0 K/mm3 03/24/19 04:14 0.0 K/mm3 03/24/19 04:14 Blast Cells # 0.0 K/mm3 03/24/19 04:14 WBC Morphology Not Reportable 03/24/19 04:14 Hypersegmented Neuts Not Reportable 03/24/19 04:14 Hyposegmented Neuts Not Reportable 03/24/19 04:14 Hypogranular Neuts Not Reportable 03/24/19 04:14 Not Reportable 03/24/19 04:14 Not Reportable 03/24/19 04:14 Not Reportable 03/24/19 04:14 Not Reportable 03/24/19 04:14 Not Reportable 03/24/19 04:14 Not Reportable 03/24/19 04:14 Consistent w auto 03/24/19 04:14 Not Reportable 03/24/19 04:14 Plt Clumps, EDTA Not Reportable 03/24/19 04:14 Not Reportable 03/24/19 04:14 Not Reportable 03/24/19 04:14 Not Reportable 03/24/19 04:14 Plt Morphology Comment Not Reportable 03/24/19 04:14 RBC Morphology Not Reportable 03/24/19 04:14 Dimorphic RBCs Not Reportable 03/24/19 04:14 Not Reportable 03/24/19 04:14 Not Reportable 03/24/19 04:14 Not Reportable 03/24/19 04:14 1+ 03/24/19 04:14 Not Reportable 03/24/19 04:14 Not Reportable 03/24/19 04:14 Not Reportable 03/24/19 04:14 Not Reportable 03/24/19 04:14 Not Reportable 03/24/19 04:14 Not Reportable 03/24/19 04:14 Not Reportable 03/24/19 04:14 Not Reportable 03/24/19 04:14 Not Reportable 03/24/19 04:14 Not Reportable 03/24/19 04:14 Not Reportable 03/24/19 04:14 Not Reportable 03/24/19 04:14 Not Reportable 03/24/19 04:14 Not Reportable 03/24/19 04:14 1+ 03/24/19 04:14 Acanthocytes (Spur) Not Reportable 03/24/19 04:14 Rouleaux Not Reportable 03/24/19 04:14 Not Reportable 03/24/19 04:14 Not Reportable 03/24/19 04:14 Not Reportable 03/24/19 04:14 Not Reportable 03/24/19 04:14 Hem Pathologist Commnt No 03/24/19 04:14 VBG pH 7.441 (7.320-7.420) H 03/23/19 16:39 Sodium 142 mmol/L (137-145) 03/28/19 06:18 Potassium 4.0 mmol/L (3.6-5.0) 03/28/19 06:18 Chloride 100.7 mmol/L (98-107) 03/28/19 06:18 Carbon Dioxide 26 mmol/L (22-30) 03/28/19 06:18 19 mmol/L 03/28/19 06:18 BUN 20 mg/dL (7-17) H 03/28/19 06:18 0.9 mg/dL (0.7-1.2) 03/28/19 06:18 Estimated GFR > 60 ml/min 03/28/19 06:18 22 % 03/28/19 06:18 Glucose 139 mg/dL (65-100) H 03/28/19 06:18 POC Glucose 135 (70-105) H 03/27/19 08:58 Lactic Acid 1.00 mmol/L (0.7-2.0) 03/23/19 16:39 Calcium 8.9 mg/dL (8.4-10.2) 03/28/19 06:18 Phosphorus 3.20 mg/dL (2.5-4.5) 03/28/19 06:18 Magnesium 2.10 mg/dL (1.7-2.3) 03/28/19 06:18 50 units/L (30-135) 03/23/19 16:39 CK-MB (CK-2) 1.9 ng/mL (0.0-4.0) 03/23/19 16:39 CK-MB (CK-2) Rel Index 3.8 (0-4) 03/23/19 16:39 < 0.010 ng/mL (0.00-0.029) 03/24/19 00:24 NT-Pro-B Natriuret Pep 2586 pg/mL (0-900) H 03/23/19 15:56 Triglycerides 102 mg/dL (2-149) 03/23/19 18:29 Cholesterol 140 mg/dL (50-199) 03/23/19 18:29 93 mg/dL (50-130) 03/23/19 18:29 42 mg/dL (40-59) 03/23/19 18:29 3.33 % 03/23/19 18:29 TSH 1.200 mlU/mL (0.270-4.200) 03/23/19 19:36 Free T4 1.07 ng/dL (0.76-1.46) 03/23/19 19:36 Free T4 1.08 ng/dL (0.76-1.46) 03/23/19 19:36 Active Medications - Current Medications Current Medications: Generic Name Dose Route Start Last Admin Trade Name Freq PRN Reason Stop Dose Admin Acetaminophen 650 mg 03/23/19 18:21 03/25/19 08:44 Tylenol PO 650 mg Q4H PRN Administration Pain MILD(1-3)/Fever >100.5/PARISI Albuterol 2.5 mg 03/23/19 18:21 Proventil IH Q4HRT PRN Shortness Of Breath Clonazepam 0.5 mg 03/24/19 10:00 03/28/19 09:26 Klonopin PO 0.5 mg DAILY ANGIE Administration Dabigatran 150 mg 03/25/19 22:00 03/28/19 09:25 Pradaxa PO 150 mg BID ANGIE Administration Protocol Diltiazem HCl 240 mg 03/24/19 10:00 03/28/19 09:25 Cardizem Cd PO 240 mg DAILY ANGIE Administration Famotidine 10 mg 03/23/19 22:00 03/28/19 09:25 Pepcid PO 10 mg BID ANGIE Administration Ferrous Sulfate 325 mg 03/24/19 10:00 03/28/19 09:25 Feosol PO 325 mg QDAY ANGIE Administration Furosemide 40 mg 03/28/19 06:00 03/28/19 06:54 Lasix IV 40 mg 0600,1800 ANGIE Administration Hydralazine HCl 25 mg 03/23/19 22:00 03/28/19 06:54 Apresoline PO 25 mg Q8HR ANGIE Administration Hydralazine HCl 10 mg 03/25/19 03:20 03/25/19 03:33 Apresoline IV 10 mg Q4H PRN Administration Hypertension Hydromorphone HCl 0.25 mg 03/23/19 18:21 03/23/19 19:02 Dilaudid IV 0.25 mg Q3H PRN Administration Pain, Moderate (4-6) Isosorbide Mononitrate 30 mg 03/24/19 10:00 03/28/19 09:25 Imdur PO 30 mg QDAY ANGIE Administration Loratadine 10 mg 03/24/19 10:00 03/28/19 09:56 Claritin PO 10 mg DAILY ANGIE Administration Miscellaneous Medication 2 each 03/26/19 10:00 03/28/19 09:56 Non-Formulary PO 2 each QDAY ANGIE Administration Ondansetron HCl 4 mg 03/23/19 18:21 03/25/19 08:38 Zofran IV 4 mg Q8H PRN Administration Nausea And Vomiting Sertraline HCl 50 mg 03/24/19 10:00 03/28/19 09:25 Zoloft PO 50 mg QDAY ANGIE Administration Sodium Chloride 10 ml 03/23/19 22:00 03/28/19 09:26 Sodium Chloride Flush Syringe 10 Ml IV 10 ml BID ANGIE Administration Sodium Chloride 10 ml 03/23/19 18:21 Sodium Chloride Flush Syringe 10 Ml IV PRN PRN LINE FLUSH Valsartan 160 mg 03/24/19 10:00 03/28/19 09:25 Diovan PO 160 mg QDAY ANGIE Administration Zolpidem Tartrate 5 mg 03/23/19 22:00 03/27/19 21:56 Ambien PO 5 mg QHS ANGIE Administration
--- NOTE | 2019-03-28 14:14 | Discharge Summary ---
Providers - Providers Date of Admission: 03/23/19 18:21 Date of discharge: 03/28/19 Attending physician: MILO KAUFFMAN 03/23/19 Consult to Cardiac Rehabilitation [CONS] Routine Reason For Exam: Phase I 03/23/19 18:21 Consult to Cardiology [CONS] Routine Consulting Provider: GERARD RICHARDSON Reason For Exam: chf 03/26/19 10:18 Physical Therapy Evaluation and Treat [CONS] Routine Comment: Reason For Exam: deconditioning 03/26/19 13:37 Consult to Physician [CONS] Routine Comment: Consulting Provider: JAGDISH ARZOLA Physician Instructions: Reason For Exam: pulm htn Hospitalization Condition: Stable Hospital course: Patient is a 73-year-old female with past medical history significant for diastolic CHF, pulmonary hypertension, A. fib, CAD, diabetes presented to the emergency department with shortness of breath. --Acute hypoxic respiratory failure. Etiology is multifactorial secondary to diastolic heart failure, severe pulmonary hypertension, MARY ELLEN/OHS. Continue O2 for supportive care and BiPAP as clinically indicated. Patient will need ambulation/oxygen fit test prior to discharge. Patient will likely need home O2. --Acute on chronic diastolic CHF :Continue the anti-failure medications, cardiology following Echocardiogram this admission reveals global left ventricular wall motion and contractility within normal limits with severely dilated left atrium. Left ventricular diastolic function normal. Right ventricle is mild to moderately dilated with right ventricular global systolic function mildly reduced right ventricular systolic pressure is calculated at 121 mmHg--severe pulmonary --Severe pulmonary hypertension. RVSP of 121 mm Hg on echo done this hospitalization. Cardiology feels that patient may need repeat right heart catheterization but she declined and already had one. Pradaxa to restart --Chest pain. LExiscan stress test was unremarkable. --A. fib, rate controlled. Continue current medications. Pradaxa restarted. --Diabetes mellitus type 2. Continue Accu-Cheks and sliding scale insulin. --Hypertension. Continue antihypertensive medications. --CAD by history. Per cardiology. IV LExiscan MPI was unremarkable, --DVT prophylaxis. Patient is on pradaxa Disposition. home The increase iv lasix really did help, as she is off O2 and pulse ox is 94% on Room air. I have spoken with clinical psychiatrist, Dr. Salvador, ok to discharge on 40mg po lasix twice a day and return to pulmonary hypertension specialist at [place], Dr. Lane Disposition: DC-01 TO HOME OR SELFCARE Time spent for discharge: 33 minutes Core Measure Documentation - Palliative Care Palliative Care/ Comfort Measures: Not Applicable - Core Measures Any of the following diagnoses?: heart failure - VTE Discharge Requirements Deep Vein Thrombosis/Pulmonary Embolism Present on Admission: No Has pt received <5 days of overlap therapy or INR<2.0: No Anticoagulant overlap therapy prescribed at discharge: No Contraindication No Overlap Therapy order at DC: Not Indicated - Heart Failure Discharge Requirements LAURIE/ARB for LVSD if EF <40%: Not Applicable Beta nick at discharge: No Reason for no beta nick on DC: Bradycardia Exam - Physical Exam Narrative exam: Gen: WDWN, NAD, Awake, Alert, Orientated HEENT: NCAT, EOMI, PERRL, OP Clear Neck: supple, no adenopathy, no thyromegaly, no JVD CVS/Heart: irregular irregular, normal S1S2, pulses present bilaterally Chest/Lungs: diminished and bilateral crackles bilateral Symmetrical chest expansion, good air entry bilaterally GI/Abdomen: soft, NTND, good bowel sounds, no guarding or rebound /Bladder: no suprapubic tenderness, no CVA or paraspinal tenderness Extermity/Skin: no obvious rash MSK: FROM x 4 Neuro: CN 2-12 grossly intact, no new focal deficits Psych: calm - Constitutional Vitals: Temp Pulse Resp BP Pulse Ox 98.0 F 63 20 90/40 97 03/28/19 04:03 03/28/19 12:06 03/28/19 10:00 03/28/19 12:06 03/28/19 12:06 Plan Activity: other (no strenous activity unless cleared by PCP ) Diet: low salt Additional Instructions: Make an appointment to see Dr. Lane as soon as possible Follow up with: [facility] [Other] - 3-5 Days GERARD RICHARDSON MD [Staff Physician] - 14 Days Prescriptions: Potassium Chloride [K-Dur] 20 meq PO BID #60 tab Furosemide [Lasix TAB] 40 mg PO BID #60 tablet ALBUTEROL NEB's [Proventil 0.083% NEBS] 2.5 mg IH Q4HRT PRN #30 nebu PRN Reason: Shortness Of Breath
--- NOTE | 2019-03-28 16:22 | Progress Note ---
Assessment and Plan 73 y/o female with severe pulmonary hypertension. 1. patient will need lasix at discharge and likely increased dosing, suggest 40mg PO BID 2. Patient can follow up with Dr. Dhillon at [place] as she has not been seen in our office in several years. 3. Agree that she does not need PDE5 inhibitor at this time 4. No objection to discharge as ordered. Subjective Date of service: 03/28/19 Principal diagnosis: SOB Interval history: Tolerated IV lasix therapy well. Weaned back to room air with good sats. Per patient was taking lasix at home. Objective Vital Signs - 12hr 03/28/19 03/28/19 03/28/19 06:54 10:00 12:06 Pulse Rate 63 Pulse Rate [ 75 From Monitor] Respiratory 20 Rate Blood Pressure 143/59 90/40 O2 Sat by Pulse 100 97 Oximetry CBC and BMP: 03/25/19 05:48 03/28/19 06:18 Abnormal lab findings: Abnormal Labs 03/23/19 03/23/19 03/23/19 15:56 15:56 15:56 WBC 4.1 L RBC 3.41 L Hgb 9.5 L Hct 28.4 L RDW 16.3 H Plt Count 136 L Lymph % (Auto) Lymph # Seg Neutrophils % Seg Neuts % (Manual) Lymphocytes # (Manual) VBG pH BUN Glucose 109 H POC Glucose Magnesium NT-Pro-B Natriuret Pep 2586 H 03/23/19 03/23/19 03/23/19 16:39 19:36 19:48 WBC RBC Hgb Hct RDW Plt Count Lymph % (Auto) Lymph # Seg Neutrophils % Seg Neuts % (Manual) Lymphocytes # (Manual) VBG pH 7.441 H BUN Glucose POC Glucose 170 H Magnesium 2.40 H NT-Pro-B Natriuret Pep 03/24/19 03/24/19 03/24/19 04:14 04:14 07:27 WBC 2.2 L RBC 3.43 L Hgb 9.5 L Hct 29.0 L RDW 16.6 H Plt Count 112 L Lymph % (Auto) Lymph # Seg Neutrophils % Seg Neuts % (Manual) 84.0 H Lymphocytes # (Manual) 0.4 L VBG pH BUN 19 H Glucose 278 H POC Glucose 193 H Magnesium NT-Pro-B Natriuret Pep 0503/24/19 03/25/19 15:18 20:49 05:48 WBC RBC 3.38 L Hgb 9.4 L Hct 28.4 L RDW 16.3 H Plt Count 130 L Lymph % (Auto) 8.0 L Lymph # 0.5 L Seg Neutrophils % 84.6 H Seg Neuts % (Manual) Lymphocytes # (Manual) VBG pH BUN Glucose POC Glucose 214 H 170 H Magnesium NT-Pro-B Natriuret Pep 03/25/19 03/25/19 03/25/19 05:48 08:14 12:06 WBC RBC Hgb Hct RDW Plt Count Lymph % (Auto) Lymph # Seg Neutrophils % Seg Neuts % (Manual) Lymphocytes # (Manual) VBG pH BUN 20 H Glucose 167 H POC Glucose 153 H 108 H Magnesium NT-Pro-B Natriuret Pep 03/25/19 03/26/19 03/26/19 21:16 11:16 22:09 WBC RBC Hgb Hct RDW Plt Count Lymph % (Auto) Lymph # Seg Neutrophils % Seg Neuts % (Manual) Lymphocytes # (Manual) VBG pH BUN Glucose POC Glucose 111 H 130 H 154 H Magnesium NT-Pro-B Natriuret Pep 03/27/19 03/28/19 08:58 06:18 WBC RBC Hgb Hct RDW Plt Count Lymph % (Auto) Lymph # Seg Neutrophils % Seg Neuts % (Manual) Lymphocytes # (Manual) VBG pH BUN 20 H Glucose 139 H POC Glucose 135 H Magnesium NT-Pro-B Natriuret Pep
[2019-03-28] MEDS ORDERED: NON-FORMULARY (Gabapentin [Neurontin] 800 MG) PO SCH (22:00)
[2019-03-28] MEDS ORDERED: NEURONTIN PO SCH (22:00)
== END 2019-03-28 18:26 | disposition home health service (06) | DRG 291 ==
LOC: ED 15:11 → 4A 18:21
PROVIDERS: ADMIT Internal Medicine; ATTEND Internal Medicine
PROC: 5A09457 Assistance with Respiratory Ventilation, 24-96 Consecutive Hours, Continuous Positive Airway Pressure (ICD-10-PCS; principal; 2019-03-24)
DX: I11.0 Hypertensive heart disease with heart failure (principal); J96.01 Acute respiratory failure with hypoxia; E66.2 Morbid (severe) obesity with alveolar hypoventilation; I48.2 Chronic atrial fibrillation; E11.9 Type 2 diabetes mellitus without complications; I25.10 Atherosclerotic heart disease of native coronary artery without angina pectoris; I50.33 Acute on chronic diastolic (congestive) heart failure; M19.90 Unspecified osteoarthritis, unspecified site; Z96.659 Presence of unspecified artificial knee joint; D64.9 Anemia, unspecified; I44.7 Left bundle-branch block, unspecified; I27.20 Pulmonary hypertension, unspecified; Z68.30 Body mass index [BMI] 30.0-30.9, adult; Z86.73 Personal history of transient ischemic attack (TIA), and cerebral infarction without residual deficits; Z95.1 Presence of aortocoronary bypass graft; Z95.5 Presence of coronary angioplasty implant and graft; Z79.01 Long term (current) use of anticoagulants; Z90.49 Acquired absence of other specified parts of digestive tract; Z82.49 Family history of ischemic heart disease and other diseases of the circulatory system; Z83.3 Family history of diabetes mellitus; Z88.0 Allergy status to penicillin; Z88.5 Allergy status to narcotic agent; Z87.442 Personal history of urinary calculi
CPT/HCPCS: 36415; 71045; 78452; 80048; 80061; 82140; 82550; 82553; 82805; 82962; 83735; 83880; 84100; 84439; 84443; 84484; 85007; 85025; 93005; 93010; 93017; 93306; 94640; 94660; 94760; G0378; A9502; J0360; J1170; J1940; J2405; J2785; J2930; J3475